=== PATIENT | female | born 1975 | race Hispanic/Latino ===

== ENCOUNTER 2017-03-06 10:21 | Emergency (ER) | payer BC ==
[2017-03-06 10:55] VITALS: BP 109/65
[2017-03-06] MEDS ORDERED: ZOFRAN IM ONE (13:46)
[2017-03-06] MEDS ORDERED: BENADRYL IM ONE (13:46)
[2017-03-06] MEDS ORDERED: MORPHINE IM ONE (13:46)
--- NOTE | 2017-03-06 17:15 | Emergency Department Report ---
Entered by ERNESTO DE LA CRUZ, acting as scribe for KRISTAN RYAN PA. ED Headache HPI - General Chief Complaint: Headache Stated Complaint: SEVERE MIGRAINES Time Seen by Provider: 03/06/17 13:17 Source: patient Exam Limitations: no limitations - History of Present Illness Initial Comments: 41 y/o female with a PMHx of CVA, TIA, renal stones, and migraines presents to the ED c/o of an acute episode of chronic left sided frontal headache that began today. Patient states the pain radiates to the right side of head. Rates pain a 10/10 in severity, which she describes as throbbing in quality. Aggravated with light exposure, odor, noise, and movement, and alleviated with a darkened room and botox shots. Denies vision changes, stiff neck, nausea, vomiting, weakness, confusion, fever, chills, dizziness, chest pain, and SOB. Patient has been seen in this ED multiple time for similar complaints. Friend, who is in the room with patient, states that patient sees a neurologist every 4 week, and she receives botox shots by her neurologist every 12 weeks with relief. Notes she has an appointment with her neurologist on 03/23/2017. 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 Patient states she's had numerous CT scans of head and she denies receiving a CT scan of head today. She reports that this migraine feels similar to her past headaches. Timing/Duration: 4-6 hours Quality: moderate, throbbing Head Injury Location: frontal Recent Head Trauma: no recent headache/trauma, chronic headaches Modifying Factors: improves with: immobilization, other (darkened room). worse with: exposure to light, movement Associated Symptoms: denies symptoms. denies: confusion, fatigue, facial pain, fever/chills, flushing, loss of consciousness, nausea/vomiting, nasal congestion , nasal drainage, numbness in legs/feet, rash, seizures, sinus infection, stiff neck, vision changes, weakness Allergies/Adverse Reactions: Allergies levetiracetam [From Keppra] Allergy (Intermediate, Verified 03/06/17 10:48) Vomiting divalproex sodium [From Depakote] Allergy (Verified 03/06/17 10:48) Unknown metoclopramide HCl [From Reglan] Allergy (Verified 03/06/17 10:48) Unknown Penicillins Allergy (Verified 03/06/17 10:48) Unknown Home Medications: Ambulatory Orders Promethazine [Phenergan] 25 mg PO Q6H PRN #12 tablet 11/03/13 Ondansetron [Zofran Odt] 4 mg PO Q8HR #20 tab.rapdis 04/07/16 Escitalopram [Lexapro] 10 mg PO DAILY 05/06/16 Oxycodone HCl/Acetaminophen [Percocet 10/325 mg] 1 tab PO Q6H PRN 05/06/16 Zolpidem Tartrate [Ambien CR] 12.5 mg PO QHS 05/06/16 lamoTRIgine [LaMICtal] 15 mg PO DAILY 05/06/16 Butalb/Acetaminophen/Caffeine [Fioricet 50-300-40 mg CAP] 1 cap PO Q8HR PRN #30 cap 03/06/17 Prochlorperazine [Compazine] 10 mg PO Q8HR #30 tablet 03/06/17 ED Review of Systems ROS: Stated complaint: SEVERE MIGRAINES Other details as noted in HPI Comment: All other systems reviewed and negative Constitutional: denies: chills, diaphoresis, fever, malaise, weakness Eyes: denies: eye pain, eye discharge, vision change ENT: denies: ear pain, throat pain Respiratory: denies: cough, orthopnea, shortness of breath, SOB with exertion, SOB at rest, stridor, wheezing Cardiovascular: denies: chest pain, palpitations, dyspnea on exertion, orthopnea , edema, syncope, paroxysmal nocturnal dyspnea Endocrine: no symptoms reported Gastrointestinal: denies: abdominal pain, nausea, vomiting, diarrhea Musculoskeletal: denies: back pain, joint swelling, arthralgia Skin: denies: rash, lesions Neurological: headache. denies: weakness, numbness, paresthesias, confusion, abnormal gait, vertigo Psychiatric: denies: anxiety, depression Hematological/Lymphatic: denies: easy bleeding, easy bruising ED Past Medical Hx - Past Medical History Previous Medical History?: Yes Hx CVA: Yes (2014 Slight left sided deficits) Hx Headaches / Migraines: Yes ( migraine headaches) Hx Kidney Stones: Yes Additional medical history: TIA x3 since last february - Surgical History Additional Surgical History: partial removal of cervix, 2 sinus surg - Social History Smoking Status: Never Smoker Substance Use Type: None - Medications Home Medications: Home Medications Medication Instructions Recorded Confirmed Last Taken Type Promethazine [Phenergan] 25 mg PO Q6H PRN #12 tablet 11/03/13 07/11/16 05/29/14 Rx Ondansetron [Zofran Odt] 4 mg PO Q8HR #20 tab.rapdis 04/07/16 07/11/16 Unknown Rx Escitalopram [Lexapro] 10 mg PO DAILY 05/06/16 07/11/16 05/06/16 History Oxycodone HCl/Acetaminophen 1 tab PO Q6H PRN 05/06/16 07/11/16 Unknown History [Percocet 10/325 mg] Zolpidem Tartrate [Ambien CR] 12.5 mg PO QHS 05/06/16 07/11/16 05/05/16 History lamoTRIgine [LaMICtal] 15 mg PO DAILY 05/06/16 07/11/16 05/06/16 History Butalb/Acetaminophen/Caffeine 1 cap PO Q8HR PRN #30 cap 03/06/17 Unknown Rx [Fioricet 50-300-40 mg CAP] Prochlorperazine [Compazine] 10 mg PO Q8HR #30 tablet 03/06/17 Unknown Rx ED Physical Exam - General Limitations: No Limitations General appearance: alert, in no apparent distress - Head Head exam: Present: atraumatic, normocephalic - Eye Eye exam: Present: normal appearance, PERRL, EOMI. Absent: scleral icterus, conjunctival injection, nystagmus, periorbital swelling, periorbital tenderness Pupils: Present: normal accommodation - ENT ENT exam: Present: normal exam, mucous membranes moist, normal external ear exam - Neck Neck exam: Present: normal inspection, full ROM. Absent: tenderness, meningismus, lymphadenopathy, thyromegaly - Respiratory Respiratory exam: Present: normal lung sounds bilaterally. Absent: respiratory distress, wheezes, rales, rhonchi, stridor, chest wall tenderness, accessory muscle use, decreased breath sounds, prolonged expiratory - Cardiovascular Cardiovascular Exam: Present: regular rate, normal rhythm, normal heart sounds. Absent: systolic murmur, diastolic murmur, rubs, gallop - GI/Abdominal GI/Abdominal exam: Present: soft, normal bowel sounds. Absent: distended - Extremities Exam Extremities exam: Present: normal inspection, full ROM, normal capillary refill - Back Exam Back exam: Present: normal inspection, full ROM. Absent: tenderness, vertebral tenderness - Neurological Exam Neurological exam: Present: alert, oriented X3, CN II-XII intact, normal gait, reflexes normal. Absent: motor sensory deficit - Expanded Neurological Exam Expanded Neurological exam: Absent: innattentive, memory loss-remote event, memory loss- recent event, ataxia, receptive aphasia, expressive aphasia, total aphasia, tremor Patient oriented to: Present: person, place, time Speech: Present: fluid speech (normal tone of speech) Cranial nerves: EOM's Intact: Normal, Nystagmus: Normal Sensory exam: Upper Extremity Light Touch: Normal, Upper Extremity Pin Prick: Normal, Upper Extremity Temperature: Normal, UE 2 Point Discrimination: Normal, Lower Extremity Light Touch: Normal, Lower Extremity Pin Prick: Normal, Lower Extremity Temperature: Normal, LE 2 Point Discrimination: Normal Motor strength exam: RUE: 5, LUE: 5, RLE: 5, LLE: 5 DTR: bicep (R): 2+, bicep (L): 2+, tricep (R): 2+, tricep (L): 2+, knee (R): 2+ , knee (L): 2+, ankle (R): 2+, ankle (L): 2+ Best Eye Response ([place]): (4) open spontaneously Best Motor Response (Joanne): (6) obeys commands Best Verbal Response ([place]): (5) oriented [place] Total: 15 - Psychiatric Psychiatric exam: Present: normal affect, normal mood - Skin Skin exam: Present: warm, dry, intact. Absent: rash ED Course Vital Signs 03/06/17 03/06/17 10:48 14:06 Temperature 98.5 F Pulse Rate 86 Respiratory 17 18 Rate Blood Pressure 109/65 O2 Sat by Pulse 99 Oximetry ED Medical Decision Making - Medical Decision Making 41 [id number] presents with headache ED course: Patient received Benadryl, Zofran, Solu-Medrol, and Morphine IM Vital signs stable patient is in no acute or respiratory distress. Discussed findings with patient about diagnoses. Discussed treatment in ED with patient Discussed with patient the prescribed Fioricet and Compazine Discussed with patient to follow up with PCP and neurologist as referred, and to return to the ED if symptoms return or worsen. Patient states understanding and will follow instructions. Pt verbally states understanding and will comply to follow up. Critical care attestation.: If time is entered above; I have spent that time in minutes in the direct care of this critically ill patient, excluding procedure time. ED Disposition Clinical Impression: Migraine headache without aura Disposition: - TO HOME OR SELFCARE Is pt being admited?: No Does the pt Need Aspirin: No Condition: Stable Instructions: Migraine Headache (ED), Acute Headache (ED) Additional Instructions: Follow-up with your neurologist as well as primary care physician. Prescriptions: Butalb/Acetaminophen/Caffeine [Fioricet 50-300-40 mg CAP] 1 cap PO Q8HR PRN #30 cap PRN Reason: Pain Prochlorperazine [Compazine] 10 mg PO Q8HR #30 tablet Referrals: PRIMARY CARE, [Primary Care Provider] - 3-5 Days Forms: Accompanied Note, Work/School Release Form(ED) Time of Disposition: 14:09 This documentation as recorded by the DOROTHY cherry JASMINE,accurately reflects the service I personally performed and the decisions made by ,KRISTAN RYAN PA.
== END 2017-03-06 15:06 | disposition home or self-care (01) ==
LOC: ED 10:21
DX: G43.909 Migraine, unspecified, not intractable, without status migrainosus (principal); Z86.73 Personal history of transient ischemic attack (TIA), and cerebral infarction without residual deficits; Z88.0 Allergy status to penicillin; Z88.8 Allergy status to other drugs, medicaments and biological substances
CPT/HCPCS: 96372; 99282; J1200; J2270; J2405; J2930

== ENCOUNTER 2017-04-04 14:23 | Emergency (ER) | payer BC ==
[2017-04-05] MEDS ORDERED: ZOFRAN IV ONE (00:37)
[2017-04-05] MEDS ORDERED: TORADOL IV ONE (00:37)
[2017-04-05] MEDS ORDERED: MORPHINE IV ONE ×2 (00:37→02:26)
[2017-04-05] MEDS ORDERED: BENADRYL IV ONE (00:37)
[2017-04-05] MEDS ORDERED: DECADRON IV ONE (00:38)
--- NOTE | 2017-04-05 00:43 | Emergency Department Report ---
ED Headache HPI - General Chief Complaint: Headache Stated Complaint: MIGRAINE PAIN Time Seen by Provider: 04/05/17 00:28 Source: patient, family - History of Present Illness Initial Comments: 41 years old female history of headache migraine came today with an episode of headache migraine it has been going on for 12 days, she just came from her neurologist 3 days ago, she received Botox treatment but is not helping .according to the patient she does have a certain pain medications combination that her neurologist and had to get that help her headache which include Dilaudid, Benadryl, Zofran, Toradol and Decadron. I reviewed the patient's records from previous visits and it did confirm what the patient's had said. Quality: moderate Recent Head Trauma: no recent headache/trauma Associated Symptoms: denies symptoms Allergies/Adverse Reactions: Allergies levetiracetam [From Keppra] Allergy (Intermediate, Verified 03/06/17 10:48) Vomiting divalproex sodium [From Depakote] Allergy (Verified 03/06/17 10:48) Unknown metoclopramide HCl [From Reglan] Allergy (Verified 03/06/17 10:48) Unknown Penicillins Allergy (Verified 03/06/17 10:48) Unknown Home Medications: Ambulatory Orders Promethazine [Phenergan] 25 mg PO Q6H PRN #12 tablet 11/03/13 Ondansetron [Zofran Odt] 4 mg PO Q8HR #20 tab.rapdis 04/07/16 Escitalopram [Lexapro] 10 mg PO DAILY 05/06/16 Oxycodone HCl/Acetaminophen [Percocet 10/325 mg] 1 tab PO Q6H PRN 05/06/16 Zolpidem Tartrate [Ambien CR] 12.5 mg PO QHS 05/06/16 lamoTRIgine [LaMICtal] 15 mg PO DAILY 05/06/16 Butalb/Acetaminophen/Caffeine [Fioricet 50-300-40 mg CAP] 1 cap PO Q8HR PRN #30 cap 03/06/17 Prochlorperazine [Compazine] 10 mg PO Q8HR #30 tablet 03/06/17 ED Review of Systems ROS: Stated complaint: MIGRAINE PAIN Other details as noted in HPI Comment: All other systems reviewed and negative Constitutional: denies: chills, fever Respiratory: denies: cough, orthopnea, shortness of breath, SOB with exertion Cardiovascular: denies: chest pain, palpitations, dyspnea on exertion Gastrointestinal: denies: abdominal pain, nausea, vomiting, diarrhea Neurological: headache. denies: weakness, numbness ED Past Medical Hx - Past Medical History Previous Medical History?: Yes Hx CVA: Yes (2014 Slight left sided deficits) Hx Headaches / Migraines: Yes ( migraine headaches) Hx Kidney Stones: Yes Additional medical history: TIA x3 since last february. 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/A and debility - Surgical History Past Surgical History?: Yes Additional Surgical History: partial removal of cervix, 2 sinus surg - Social History Smoking Status: Never Smoker Substance Use Type: None - Medications Home Medications: Home Medications Medication Instructions Recorded Confirmed Last Taken Type Promethazine [Phenergan] 25 mg PO Q6H PRN #12 tablet 11/03/13 07/11/16 05/29/14 Rx Ondansetron [Zofran Odt] 4 mg PO Q8HR #20 tab.rapdis 04/07/16 07/11/16 Unknown Rx Escitalopram [Lexapro] 10 mg PO DAILY 05/06/16 07/11/16 05/06/16 History Oxycodone HCl/Acetaminophen 1 tab PO Q6H PRN 05/06/16 07/11/16 Unknown History [Percocet 10/325 mg] Zolpidem Tartrate [Ambien CR] 12.5 mg PO QHS 05/06/16 07/11/16 05/05/16 History lamoTRIgine [LaMICtal] 15 mg PO DAILY 05/06/16 07/11/16 05/06/16 History Butalb/Acetaminophen/Caffeine 1 cap PO Q8HR PRN #30 cap 03/06/17 Unknown Rx [Fioricet 50-300-40 mg CAP] Prochlorperazine [Compazine] 10 mg PO Q8HR #30 tablet 03/06/17 Unknown Rx ED Physical Exam - General Limitations: No Limitations General appearance: alert - Head Head exam: Present: atraumatic, normocephalic - Eye Eye exam: Present: normal appearance - ENT ENT exam: Present: normal exam - Neck Neck exam: Present: normal inspection - Respiratory Respiratory exam: Present: normal lung sounds bilaterally. Absent: respiratory distress, wheezes, rales, rhonchi - Cardiovascular Cardiovascular Exam: Present: regular rate, normal rhythm, normal heart sounds - GI/Abdominal GI/Abdominal exam: Present: soft. Absent: tenderness, guarding, rebound, rigid , normal bowel sounds - Back Exam Back exam: Present: normal inspection. Absent: CVA tenderness (R), CVA tenderness (L) - Neurological Exam Neurological exam: Present: alert, oriented X3, CN II-XII intact - Skin Skin exam: Present: warm, intact, normal color ED Course Vital Signs 04/04/17 16:34 Temperature 99 F Pulse Rate 72 Respiratory 18 Rate Blood Pressure 100/47 O2 Sat by Pulse 99 Oximetry - Reevaluation(s) Reevaluation #1: 04/05/17 02:27 Patient is sleeping when I walked into the room and as soon as she heard my voice, she wake-up and asked for more pain medicine. After reviewing the patient's records, I do believe this patient most likely had a narcotic rebound headache,I feel there is a pain medicine seeking behavior also. I talked to the patient and to her that she will need to follow-up with pain medicine clinic and get treated, patient rejected the idea immediately but her is understanding that something needed to be done about this. Critical care attestation.: If time is entered above; I have spent that time in minutes in the direct care of this critically ill patient, excluding procedure time. ED Disposition Clinical Impression: Migraine, Narcotic dependence Disposition: DC-01 TO HOME OR SELFCARE Is pt being admited?: No Does the pt Need Aspirin: No Condition: Stable Instructions: Migraine Headache (ED), Narcotic Abuse (ED) Referrals: PRIMARY CARE, [Primary Care Provider] - 3-5 Days
[2017-04-05 02:52] VITALS: BP 99/71
== END 2017-04-05 02:53 | disposition home or self-care (01) ==
LOC: ED 14:23
DX: G43.909 Migraine, unspecified, not intractable, without status migrainosus (principal); F11.20 Opioid dependence, uncomplicated; Z88.0 Allergy status to penicillin; Z88.8 Allergy status to other drugs, medicaments and biological substances; Z86.73 Personal history of transient ischemic attack (TIA), and cerebral infarction without residual deficits; Z87.442 Personal history of urinary calculi
CPT/HCPCS: 96374; 96375; 96376; 99283; J1100; J1200; J1885; J2270; J2405

== ENCOUNTER 2018-08-13 11:50 | Emergency (ER) | payer BC, MEDICARE ==
[2018-08-13 12:10] VITALS: BP 123/75
[2018-08-13] MEDS ORDERED: MORPHINE IV ONE ×4 (12:15→13:37)
[2018-08-13] MEDS ORDERED: ZOFRAN IV ONE (12:15)
[2018-08-13] MEDS ORDERED: DECADRON IV ONE (12:15)
[2018-08-13] MEDS ORDERED: BENADRYL IV ONE (12:16)
--- NOTE | 2018-08-13 12:20 | Emergency Department Report ---
ED Headache HPI - General Chief Complaint: Headache Stated Complaint: SEVERE HEADACHE Time Seen by Provider: 08/13/18 12:11 - History of Present Illness Initial Comments: Mrs. Mejia is a 43-year-old female with history of hemiplegic migraine and CVA presents with typical migraine. She has left-sided throbbing 10/10 headache with photophobia and phonophobia with nausea. Persistent headache for patient. Recently she was admitted one month ago for severe pain since related to migraine. She is followed by Dr. Fuller neurologist in [place]. Her typical headache cocktail includes Demerol, Benadryl and antinausea medicine. She is unable to tolerate Imitrex due to history of CVA. Home medications include Percocet, CBD oil, Requip and Lipitor Timing/Duration: other (3 days) Quality: severe Head Injury Location: temporal Recent Head Trauma: frequent headaches, chronic headaches Modifying Factors: improves with: exposure to light Associated Symptoms: nausea/vomiting Allergies/Adverse Reactions: Allergies levetiracetam [From Keppra] Allergy (Intermediate, Verified 08/13/18 12:08) Vomiting divalproex sodium [From Depakote] Allergy (Verified 08/13/18 12:08) Unknown metoclopramide HCl [From Reglan] Allergy (Verified 08/13/18 12:08) Unknown Penicillins Allergy (Verified 08/13/18 12:08) Unknown Home Medications: Ambulatory Orders Zolpidem Tartrate [Ambien CR] 12.5 mg PO QHS 05/06/16 Aspirin [Aspirin TAB] 325 mg PO QDAY #30 tablet 06/30/18 AtorvaSTATin [Lipitor] 40 mg PO QHS #30 tablet 06/30/18 Diazepam [Valium] 1 tab PO BID PRN 07/02/18 SUMAtriptan succinate [Imitrex] 0.5 ml SUB-Q BID PRN 07/02/18 Butalb/Acetamin/Caff 50-325-40 [Fioricet] 1 tab PO Q6H PRN #20 tablet 07/06/18 Ondansetron [Zofran ODT TAB] 4 mg PO Q8HR #20 tab.rapdis 07/06/18 ED Review of Systems ROS: Stated complaint: SEVERE HEADACHE Other details as noted in HPI Comment: All other systems reviewed and negative Constitutional: denies: fever, malaise Respiratory: denies: cough Cardiovascular: denies: chest pain Gastrointestinal: nausea. denies: abdominal pain, vomiting ED Past Medical Hx - Past Medical History Hx CVA: Yes (2013 Slight left sided deficits. TPA 2 weeks ago.) Hx Heart Attack/AMI: No Hx Congestive Heart Failure: No Hx Diabetes: No Hx Headaches / Migraines: Yes ( migraine headaches) Hx Kidney Stones: Yes Hx Asthma: No Hx COPD: No Additional medical history: TIA x3 since last february. 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 tonsils - Social History Smoking Status: Never Smoker Substance Use Type: None - Medications Home Medications: Home Medications Medication Instructions Recorded Confirmed Last Taken Type Zolpidem Tartrate [Ambien CR] 12.5 mg PO QHS 05/06/16 07/15/18 07/13/18 22:00 History Aspirin [Aspirin TAB] 325 mg PO QDAY #30 tablet 06/30/18 07/15/18 07/02/18 Rx AtorvaSTATin [Lipitor] 40 mg PO QHS #30 tablet 06/30/18 07/15/18 07/13/18 22:00 Rx Diazepam [Valium] 1 tab PO BID PRN 07/02/18 07/15/18 07/02/18 History SUMAtriptan succinate [Imitrex] 0.5 ml SUB-Q BID PRN 07/02/18 07/15/18 07/02/18 History Butalb/Acetamin/Caff 50-325-40 1 tab PO Q6H PRN #20 tablet 07/06/18 07/15/18 07/14/18 16:00 Rx [Fioricet] Ondansetron [Zofran ODT TAB] 4 mg PO Q8HR #20 tab.rapdis 07/06/18 07/15/18 Unknown Rx ED Physical Exam - General Limitations: No Limitations General appearance: alert, in no apparent distress - Head Head exam: Present: atraumatic, normocephalic - Eye Eye exam: Present: normal appearance - ENT ENT exam: Present: mucous membranes moist - Neck Neck exam: Present: normal inspection - Respiratory Respiratory exam: Present: normal lung sounds bilaterally. Absent: respiratory distress, wheezes, rales, rhonchi - Cardiovascular Cardiovascular Exam: Present: regular rate, normal rhythm, normal heart sounds. Absent: systolic murmur, diastolic murmur, rubs, gallop - GI/Abdominal GI/Abdominal exam: Present: soft, normal bowel sounds. Absent: distended, tenderness, guarding, rebound - Extremities Exam Extremities exam: Present: normal inspection - Back Exam Back exam: Present: normal inspection - Neurological Exam Neurological exam: Present: alert, oriented X3, normal gait - Psychiatric Psychiatric exam: Present: normal affect, normal mood - Skin Skin exam: Present: warm, dry, intact, normal color. Absent: rash ED Course Vital Signs 08/13/18 08/13/18 08/13/18 12:08 12:30 12:36 Temperature 98.5 F Pulse Rate 103 H Respiratory 18 15 15 Rate Blood Pressure 123/75 O2 Sat by Pulse 98 Oximetry ED Medical Decision Making - Medical Decision Making Mrs. Mejia has history of complex hemiplegic migraine and CVA. I reviewed previous medical record. I reviewed extensive discharge summary. She's had multiple hospital admissions at outside hospitals including [facility]. Recent CVA workup was negative although she did receive TPA on her last presentation to this hospital in June. She does not have any new neurological deficits. She received morphine, Toradol, dexamethasone, Zofran and Benadryl in the ED. Critical care attestation.: If time is entered above; I have spent that time in minutes in the direct care of this critically ill patient, excluding procedure time. ED Disposition Clinical Impression: Migraine Disposition: DC-01 TO HOME OR SELFCARE Is pt being admited?: No Does the pt Need Aspirin: No Condition: Stable Instructions: Migraine Headache (ED) Referrals: PRIMARY CARE, [Primary Care Provider] - 3-5 Days
== END 2018-08-13 13:49 | disposition home or self-care (01) ==
LOC: ED 11:50
DX: G43.909 Migraine, unspecified, not intractable, without status migrainosus (principal); G89.29 Other chronic pain; Z86.73 Personal history of transient ischemic attack (TIA), and cerebral infarction without residual deficits; Z90.710 Acquired absence of both cervix and uterus; Z90.49 Acquired absence of other specified parts of digestive tract; Z90.79 Acquired absence of other genital organ(s); Z79.899 Other long term (current) drug therapy; Z88.6 Allergy status to analgesic agent; Z88.0 Allergy status to penicillin; Z88.1 Allergy status to other antibiotic agents
CPT/HCPCS: 96374; 96375; 96376; 99282; J1100; J1200; J2270; J2405

== ENCOUNTER 2018-08-25 15:56 | Emergency (ER) | payer BC, MEDICARE ==
[2018-08-25 16:04] VITALS: BP 130/80
[2018-08-25] MEDS ORDERED: NACL 0.9% 1000 ML 1,000 ML IV ONE (16:38)
[2018-08-25] MEDS ORDERED: ZOFRAN IV ONE (16:38)
[2018-08-25] MEDS ORDERED: TORADOL IV ONE (16:38)
[2018-08-25] MEDS ORDERED: BENADRYL IV ONE (16:38)
[2018-08-25] MEDS ORDERED: MORPHINE IV ONE ×4 (16:59→18:14)
--- NOTE | 2018-08-25 18:13 | Emergency Department Report ---
ED Headache HPI - General Chief Complaint: Headache Stated Complaint: HEADACHE Time Seen by Provider: 08/25/18 16:32 - History of Present Illness Initial Comments: This is a 43-year-old female nontoxic, well nourished in appearance, no acute signs of distress presents to the ED with c/o of acute on chronic headache. Patient describes headache as diffuse with level of 8 out of 10. Patient denies thunderclap headache. Patient denies any radiation of pain. Patient denies any head trauma. Patient denies any visual changes. Patient denies worse headache. Patient stated she does follow a neruologist and last week had an EEG. Patient stated had also CT scans as well within normal findings. Patient stated that darkness makes headache better and bright lights make the headache worse. Patient denies any numbness, tingling, fever, chills, nausea, vomiting, chest pain, shortness of breath, stiff neck. Patient denies any radiation of pain. Past medical history includes headaches. Timing/Duration: episodic Quality: achy Head Injury Location: other (diffuse) Recent Head Trauma: frequent headaches, chronic headaches Associated Symptoms: denies symptoms. denies: confusion, fatigue, facial pain, fever/chills, flushing, loss of consciousness, nausea/vomiting, nasal congestion, nasal drainage, numbness in legs/feet, rash, seizures, sinus infection, stiff neck, vision changes, weakness Allergies/Adverse Reactions: Allergies levetiracetam [From Keppra] Allergy (Intermediate, Verified 08/13/18 12:08) Vomiting divalproex sodium [From Depakote] Allergy (Verified 08/13/18 12:08) Unknown metoclopramide HCl [From Reglan] Allergy (Verified 08/13/18 12:08) Unknown Penicillins Allergy (Verified 08/13/18 12:08) Unknown Home Medications: Ambulatory Orders Zolpidem Tartrate [Ambien CR] 12.5 mg PO QHS 05/06/16 Aspirin [Aspirin TAB] 325 mg PO QDAY #30 tablet 06/30/18 AtorvaSTATin [Lipitor] 40 mg PO QHS #30 tablet 06/30/18 Diazepam [Valium] 1 tab PO BID PRN 07/02/18 SUMAtriptan succinate [Imitrex] 0.5 ml SUB-Q BID PRN 07/02/18 Butalb/Acetamin/Caff 50-325-40 [Fioricet] 1 tab PO Q6H PRN #20 tablet 07/06/18 Ondansetron [Zofran ODT TAB] 4 mg PO Q8HR #20 tab.rapdis 07/06/18 Butalb/Acetamin/Caff 50-325-40 [Fioricet] 1 tab PO Q6HR PRN #12 tab 08/25/18 ED Review of Systems ROS: Stated complaint: HEADACHE Other details as noted in HPI Constitutional: denies: chills, fever Eyes: denies: eye pain, eye discharge, vision change ENT: denies: ear pain, throat pain Respiratory: denies: cough, shortness of breath, wheezing Cardiovascular: denies: chest pain, palpitations Endocrine: no symptoms reported Gastrointestinal: denies: abdominal pain, nausea, diarrhea Genitourinary: denies: urgency, dysuria, discharge Musculoskeletal: denies: back pain, joint swelling, arthralgia Skin: denies: rash, lesions Neurological: headache. 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 TPA 2 weeks ago.) Hx Heart Attack/AMI: No Hx Congestive Heart Failure: No Hx Diabetes: No Hx Headaches / Migraines: Yes ( migraine headaches) Hx Kidney Stones: Yes Hx Asthma: No Hx COPD: No Additional medical history: TIA x3 since last february. 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 tonsils - Social History Smoking Status: Never Smoker Substance Use Type: None - Medications Home Medications: Home Medications Medication Instructions Recorded Confirmed Last Taken Type Zolpidem Tartrate [Ambien CR] 12.5 mg PO QHS 05/06/16 07/15/18 07/13/18 22:00 History Aspirin [Aspirin TAB] 325 mg PO QDAY #30 tablet 06/30/18 07/15/18 07/02/18 Rx AtorvaSTATin [Lipitor] 40 mg PO QHS #30 tablet 06/30/18 07/15/18 07/13/18 22:00 Rx Diazepam [Valium] 1 tab PO BID PRN 07/02/18 07/15/18 07/02/18 History SUMAtriptan succinate [Imitrex] 0.5 ml SUB-Q BID PRN 07/02/18 07/15/18 07/02/18 History Butalb/Acetamin/Caff 50-325-40 1 tab PO Q6H PRN #20 tablet 07/06/18 07/15/18 07/14/18 16:00 Rx [Fioricet] Ondansetron [Zofran ODT TAB] 4 mg PO Q8HR #20 tab.rapdis 07/06/18 07/15/18 Unknown Rx Butalb/Acetamin/Caff 50-325-40 1 tab PO Q6HR PRN #12 tab 08/25/18 Unknown Rx [Fioricet] ED Physical Exam - General Limitations: No Limitations General appearance: alert, in no apparent distress - Head Head exam: Present: atraumatic, normocephalic - Eye Eye exam: Present: normal appearance, PERRL, EOMI - Neck Neck exam: Present: normal inspection, full ROM - Extremities Exam Extremities exam: Present: normal inspection, full ROM, normal capillary refill - Back Exam Back exam: Present: normal inspection, full ROM - Neurological Exam Neurological exam: Present: alert, oriented X3, normal gait - Expanded Neurological Exam Expanded Patient oriented to: Present: person, place, time Cranial nerves: Facial Sensation: Normal Sensory exam: Upper Extremity Light Touch: Normal, Upper Extremity Pin Prick: Normal, Upper Extremity Temperature: Normal, Lower Extremity Light Touch: Normal, Lower Extremity Pin Prick: Normal, Lower Extremity Temperature: Normal Motor strength exam: RUE: 5, LUE: 5, RLE: 5, LLE: 5 Best Eye Response ([place]): (4) open spontaneously Best Motor Response ([place]): (6) obeys commands Best Verbal Response ([place]): (5) oriented [place] Total: 15 - Psychiatric Psychiatric exam: Present: normal affect, normal mood - Skin Skin exam: Present: warm, dry, intact, normal color. Absent: rash ED Course Vital Signs 08/25/18 08/25/18 08/25/18 16:00 17:01 17:11 Temperature 98.7 F Pulse Rate 127 H Respiratory 16 15 17 Rate Blood Pressure 130/80 O2 Sat by Pulse 96 Oximetry - Reevaluation(s) Reevaluation #1: 08/25/18 18:26 Patient is speaking in full sentences with no signs of distress noted. ED Medical Decision Making - Medical Decision Making This is a 43-year-old female that presents with chronic headache. Patient is stable and was examined by me. Patient is neurologically stable. There is no stiff neck or neck pain. Vital signs are stable. Patient is afebrile. Patient received Benadryl, Reglan, Toradol, decadron, Morphine and 1 L of normal saline which the patient stated that headache has subsided and resolved. Patient was instructed not to operate any machinery after discharged due to drowsiness of medications. Patient stated that a family member () will drive patient home. Patient was referred to Follow-up with a primary care/neurologist doctor in 3-5 days or if symptoms worsen and continue return to emergency room as soon as possible. At time of discharge, the patient does not seem toxic or ill in appearance. No acute signs of distress noted. Patient agrees to discharge treatment plan of care. No further questions noted by the patient. Critical care attestation.: If time is entered above; I have spent that time in minutes in the direct care of this critically ill patient, excluding procedure time. ED Disposition Clinical Impression: Chronic headache Qualifiers: Headache type: unspecified Intractability: not intractable Qualified Code(s): R51 - Headache Disposition: DC-01 TO HOME OR SELFCARE Is pt being admited?: No Does the pt Need Aspirin: No Condition: Stable Instructions: Acute Headache (ED), Butalbital/Aspirin/Caffeine (By mouth) Additional Instructions: Follow-up with a primary care/ neurologist doctor in 3-5 days or if symptoms worsen and continue return to emergency room as soon as possible. Prescriptions: Butalb/Acetamin/Caff 50-325-40 [Fioricet] 1 tab PO Q6HR PRN #12 tab PRN Reason: Headache Referrals: PRIMARY CARE, [Primary Care Provider] - 3-5 Days SANFORD ZIMMER MD [Staff Physician] - 3-5 Days [facility] [Outside] - 3-5 Days [facility] [Outside] - 3-5 Days Forms: Work/School Release Form(ED)
[2018-08-25] MEDS ORDERED: DECADRON IV ONE (18:14)
== END 2018-08-25 19:38 | disposition home or self-care (01) ==
LOC: ED 15:56
DX: R51 Headache (principal); G89.29 Other chronic pain; G43.909 Migraine, unspecified, not intractable, without status migrainosus; Z86.73 Personal history of transient ischemic attack (TIA), and cerebral infarction without residual deficits; Z90.710 Acquired absence of both cervix and uterus; Z90.89 Acquired absence of other organs; Z79.899 Other long term (current) drug therapy; Z88.0 Allergy status to penicillin; Z88.1 Allergy status to other antibiotic agents; Z88.8 Allergy status to other drugs, medicaments and biological substances
CPT/HCPCS: 96374; 96375; 96376; 99282; J1100; J1200; J1885; J2270; J2405; J7030

== ENCOUNTER 2018-08-31 21:22 | Emergency (ER) | payer BC, MEDICARE ==
[2018-08-31] MEDS ORDERED: SOLU-Medrol IV ONE (22:10)
[2018-08-31] MEDS ORDERED: BENADRYL IV ONE (22:10)
[2018-08-31] MEDS ORDERED: DILAUDID IV ONE ×2 (22:10→23:28)
[2018-08-31] MEDS ORDERED: ZOFRAN IV ONE (22:10)
--- NOTE | 2018-08-31 22:11 | Emergency Department Report ---
ED Headache HPI - General Chief Complaint: Headache Stated Complaint: HEADACHE Time Seen by Provider: 08/31/18 22:01 Source: patient, family Exam Limitations: no limitations - History of Present Illness Initial Comments: Patient is a 43-year-old female presents to emergency room with worsening migraine headache. Patient states the pain isn't sudden onset. Patient states it's a generalized headache. Patient states that the pain is worsening and is nonradiating. Patient states the pain is better with rest and light and sound avoidance and worse with movement and exertion. Patient denies chest pain shortness of breath. Patient denies fever or chills. Patient states she has a long history of migraines and has a daily headache and is already seeing a neurologist for this. Patient states that normally she can manage the indication with oral medications but at times needs to be seen in the ER for IV medications. Patient states she has a seizure history. Patient states she had 2 seizures in the last 24 hours due to the stress reaction of the migraines. He denies neck pain. Patient denies neck stiffness.. Timing/Duration: 24 hours Quality: severe Head Injury Location: global Recent Head Trauma: no recent headache/trauma, frequent headaches, chronic headaches Modifying Factors: improves with: cold therapy, exposure to light, medication, movement, rest Associated Symptoms: seizures. denies: confusion, fatigue, facial pain, fever/chills, flushing, loss of consciousness, nausea/vomiting, nasal congestion, nasal drainage, numbness in legs/feet, rash, sinus infection, stiff neck, vision changes, weakness Allergies/Adverse Reactions: Allergies levetiracetam [From Keppra] Allergy (Intermediate, Verified 08/13/18 12:08) Vomiting divalproex sodium [From Depakote] Allergy (Verified 08/13/18 12:08) Unknown metoclopramide HCl [From Reglan] Allergy (Verified 08/13/18 12:08) Unknown Penicillins Allergy (Verified 08/13/18 12:08) Unknown Home Medications: Ambulatory Orders Zolpidem Tartrate [Ambien CR] 12.5 mg PO QHS 05/06/16 Aspirin [Aspirin TAB] 325 mg PO QDAY #30 tablet 06/30/18 AtorvaSTATin [Lipitor] 40 mg PO QHS #30 tablet 06/30/18 SUMAtriptan succinate [Imitrex] 0.5 ml SUB-Q BID PRN 07/02/18 Butalb/Acetamin/Caff 50-325-40 [Fioricet] 1 tab PO Q6H PRN #20 tablet 07/06/18 Butalb/Acetamin/Caff 50-325-40 [Fioricet] 1 tab PO Q6HR PRN #12 tab 08/25/18 Diazepam [Valium] 1 tab PO BID PRN #6 tablet 09/01/18 Ondansetron [Zofran ODT TAB] 4 mg PO Q8HR PRN #20 tab.rapdis 09/01/18 methylPREDNISolone [Medrol] 4 mg PO DAILY 6 Days #1 tab.ds.pk 09/01/18 ED Review of Systems ROS: Stated complaint: HEADACHE Other details as noted in HPI Constitutional: denies: chills, fever Eyes: denies: eye pain, eye discharge, vision change ENT: denies: ear pain, throat pain Respiratory: denies: cough, shortness of breath, wheezing Cardiovascular: denies: chest pain, palpitations Endocrine: no symptoms reported Gastrointestinal: denies: abdominal pain, nausea, diarrhea Genitourinary: denies: urgency, dysuria, discharge Musculoskeletal: denies: back pain, joint swelling, arthralgia Skin: denies: rash, lesions Neurological: headache. denies: weakness, numbness, paresthesias, confusion, abnormal gait, vertigo Psychiatric: denies: anxiety, depression Hematological/Lymphatic: denies: easy bleeding, easy bruising ED Past Medical Hx - Past Medical History Previous Medical History?: Yes Hx CVA: Yes (2014 Slight left sided deficits.) Hx Heart Attack/AMI: No Hx Congestive Heart Failure: No Hx Diabetes: No Hx Headaches / Migraines: Yes ( migraine headaches) Hx Kidney Stones: Yes Hx Asthma: No Hx COPD: No Additional medical history: TIA x3 since last february. 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 tonsils - Family History Family history: no significant - Social History Smoking Status: Never Smoker Substance Use Type: None - Medications Home Medications: Home Medications Medication Instructions Recorded Confirmed Last Taken Type Zolpidem Tartrate [Ambien CR] 12.5 mg PO QHS 05/06/16 07/15/18 07/13/18 22:00 History Aspirin [Aspirin TAB] 325 mg PO QDAY #30 tablet 06/30/18 07/15/18 07/02/18 Rx AtorvaSTATin [Lipitor] 40 mg PO QHS #30 tablet 06/30/18 07/15/18 07/13/18 22:00 Rx SUMAtriptan succinate [Imitrex] 0.5 ml SUB-Q BID PRN 07/02/18 07/15/18 07/02/18 History Butalb/Acetamin/Caff 50-325-40 1 tab PO Q6H PRN #20 tablet 07/06/18 07/15/18 07/14/18 16:00 Rx [Fioricet] Butalb/Acetamin/Caff 50-325-40 1 tab PO Q6HR PRN #12 tab 08/25/18 Unknown Rx [Fioricet] Diazepam [Valium] 1 tab PO BID PRN #6 tablet 09/01/18 Unknown Rx Ondansetron [Zofran ODT TAB] 4 mg PO Q8HR PRN #20 tab.rapdis 09/01/18 Unknown Rx methylPREDNISolone [Medrol] 4 mg PO DAILY 6 Days #1 tab.ds.pk 09/01/18 Unknown Rx ED Physical Exam - General Limitations: No Limitations General appearance: alert, in no apparent distress - Head Head exam: Present: atraumatic, normocephalic - Eye Eye exam: Present: normal appearance, PERRL, EOMI Pupils: Present: normal accommodation - ENT ENT exam: Present: mucous membranes moist - Neck Neck exam: Present: normal inspection - Respiratory Respiratory exam: Present: normal lung sounds bilaterally. Absent: respiratory distress - Cardiovascular Cardiovascular Exam: Present: regular rate, normal rhythm. Absent: systolic murmur, diastolic murmur, rubs, gallop - GI/Abdominal GI/Abdominal exam: Present: soft, normal bowel sounds - Extremities Exam Extremities exam: Present: normal inspection - Back Exam Back exam: Present: normal inspection - Neurological Exam Neurological exam: Present: alert, oriented X3 - Expanded Neurological Exam Expanded Patient oriented to: Present: person, place, time Speech: Present: fluid speech Cranial nerves: EOM's Intact: Normal Cerebellar function: Finger to Nose: Normal, Heel to [place]: Normal, [place]: Normal Upper motor neuron: Jhoan Neglect: Normal, Pronator Drift: Normal, Babinski Sign: Normal, Sensory Extinction: Normal Motor strength exam: RUE: 5, LUE: 5, RLE: 5, LLE: 5 Best Eye Response ([place]): (4) open spontaneously Best Motor Response ([place]): (6) obeys commands Best Verbal Response ([place]): (5) oriented [place] Total: 15 - Psychiatric Psychiatric exam: Present: normal affect, normal mood - Skin Skin exam: Present: warm, dry, intact, normal color. Absent: rash ED Course Vital Signs 08/31/18 08/31/18 08/31/18 21:26 21:27 22:10 Temperature 121.0 F H 98.6 F Pulse Rate 122 H 121 H Respiratory 18 18 18 Rate Blood Pressure 120/76 120/76 O2 Sat by Pulse 98 98 99 Oximetry 08/31/18 08/31/18 08/31/18 22:16 22:31 22:45 Temperature Pulse Rate Respiratory Rate Blood Pressure 122/70 O2 Sat by Pulse 98 98 97 Oximetry 08/31/18 08/31/18 08/31/18 22:52 23:00 23:15 Temperature Pulse Rate 96 H Respiratory Rate Blood Pressure 128/77 124/81 O2 Sat by Pulse 98 Oximetry 08/31/18 23:20 Temperature Pulse Rate 97 H Respiratory 18 Rate Blood Pressure O2 Sat by Pulse 99 Oximetry - Reevaluation(s) Reevaluation #1: Initial evaluation done. Patient has a long history of migraines and typically when she comes to the ER requires a migraine cocktail. 08/31/18 22:09 Patient is still complaining of pain. Patient states that time. Patient was given another Dilaudid and Toradol 08/31/18 23:27 Patient states her pain is now at a 7 out of 10. Patient states it is improving but still pounding. Patient will be given another 1 of Dilaudid and prepared for discharge. 09/01/18 00:10 Patient states the pain is a 3 out of 10. Patient states she normally sits about a 5 out of 10 daily. Patient is answering all questions appropriately. Patient is A&O 4. She states she doesn't need the fluids and refused to have saline bolus. Discussed all results with patient and . Patient to be discharged home. Patient stable for discharge. Patient given discharge instructions. Patient and voice understanding of discharge instructions. 09/01/18 00:51 ED Medical Decision Making - Medical Decision Making Patient is a 43-year-old female with a long history of migraines that presents to emergency room with worsening migraine headache. Patient given multiple medications and pain improved. Patient discharged home with Zofran, Medrol Dosepak and a refill of her diazepam. Patient was given diazepam for her seizure history. Patient instructed to follow up with her neurologist. Patient also follow up with her primary care. Patient given discharge instructions. Patient and voice understanding of all instructions. Patient's initial temperature is an error. Patient afebrile. - Differential Diagnosis headache. Chronic migraines. Migraine headache. Anxiety. Seizure Critical care attestation.: If time is entered above; I have spent that time in minutes in the direct care of this critically ill patient, excluding procedure time. ED Disposition Clinical Impression: Seizure Chronic headache Qualifiers: Headache type: unspecified Intractability: not intractable Qualified Code(s): R51 - Headache Migraine Qualifiers: Migraine type: with aura Status migrainosus presence: with status migrainosus Intractability: not intractable Qualified Code(s): G43.101 - Migraine with aura, not intractable, with status migrainosus Disposition: DC- TO HOME OR SELFCARE Is pt being admited?: No Does the pt Need Aspirin: No Condition: Stable Instructions: Migraine Headache (ED), Acute Headache (ED) Additional Instructions: Patient to follow up with neurologist in 2-3 days. Patient to return to ER if condition worsens. Patient to follow up with primary care in 2-3 days. Patient to take meds as directed. Patient to continue all meds. Patient to increase water. Patient to rest. Patient states Tylenol or ibuprofen when necessary for pain. Patient to avoid driving. Patient to take seizure precaution and migraine precautions. Prescriptions: Diazepam [Valium] 1 tab PO BID PRN #6 tablet PRN Reason: TWITCHING methylPREDNISolone [Medrol] 4 mg PO DAILY 6 Days #1 tab.ds.pk Ondansetron [Zofran ODT TAB] 4 mg PO Q8HR PRN #20 tab.rapdis PRN Reason: Nausea And Vomiting Referrals: EMILE STEVENS [Other] - 2-3 Days Time of Disposition: 00:49 - Assessment Assessment Interval: Baseline - Level of Consciousness 1a. Level of Consciousness: alert/keenly responsive - LOC Questions 1b. LOC Questions: answers both correctly - LOC Command 1c. LOC Commands: performs tasks correctly - Best Gaze 2. Best Gaze: normal - Visual 3. Visual: no visual loss - Facial Palsy 4. Facial Palsy: normal symmetrical movement - Motor Arm 5b. Motor Arm Right: no drift 5a. Motor Arm Left: no drift - Motor Leg 6b. Motor Leg Right: no drift 6a. Motor Leg Left: no drift - Limb Ataxia 7. Limb Ataxia: absent - Sensory 8. Sensory: normal - Best Language 9. Best Language: no aphasia - Dysarthria 10. Dysarthria: normal - Extinction and Inattention 11. Extinction/Inattention: no abnormality - Scoring Total Score: 0 Stroke Severity: No Stroke Symptoms
[2018-08-31] MEDS ORDERED: TORADOL IV ONE (23:28)
[2018-08-31] MEDS ORDERED: PHENERGAN PO ONE (23:28)
[2018-09-01] MEDS ORDERED: DILAUDID IV ONE (00:21)
[2018-09-01] MEDS ORDERED: NACL 0.9% 1000 ML 1,000 ML IV ONE (00:27)
[2018-09-01 14:45] VITALS: BP 102/56
== END 2018-09-01 01:14 | disposition home or self-care (01) ==
LOC: ED 21:22
DX: G43.101 Migraine with aura, not intractable, with status migrainosus (principal); R56.9 Unspecified convulsions; Z86.73 Personal history of transient ischemic attack (TIA), and cerebral infarction without residual deficits; Z90.710 Acquired absence of both cervix and uterus; Z90.79 Acquired absence of other genital organ(s); Z79.899 Other long term (current) drug therapy; Z88.0 Allergy status to penicillin; Z88.6 Allergy status to analgesic agent; Z88.1 Allergy status to other antibiotic agents
CPT/HCPCS: 96374; 96375; 96376; 99283; J1170; J1200; J1885; J2405; J2930; Q0169

== ENCOUNTER 2018-09-02 17:44 | Emergency (ER) | payer BC, MEDICARE ==
[2018-09-02 17:51] VITALS: BP 121/66
[2018-09-02] MEDS ORDERED: NACL 0.9% 1000 ML 1,000 ML IV ONE (22:43)
[2018-09-02] MEDS ORDERED: BENADRYL IV STA (22:43)
[2018-09-02] MEDS ORDERED: TORADOL IV STA (22:43)
[2018-09-02] MEDS ORDERED: ATIVAN IV STA (22:52)
--- NOTE | 2018-09-02 22:57 | Emergency Department Report ---
ED Headache HPI - General Chief Complaint: Headache Stated Complaint: YARELI MCCORMACK Time Seen by Provider: 09/02/18 22:43 Source: patient - History of Present Illness Initial Comments: 43-year-old female with a past history of chronic migraines, which resulted in occasional hemiplegia under the care of a neurologist and pain management. Usually has to earnest her migraine headache, rash sees with Dilaudid and still insists she states the other medications do not work. She was seen here 2 or 3 days ago with an exacerbation of pain that down to a 5. She said made her feel very good, however, now his reemerge 209, occasional 10, associated with photophobia. There is no scotomas, no weakness, no chest pain, no palpitations, no fever, chills, neck pain. She presents requesting another medication, round, to get her through the point where she can see her neurospecialist this coming week. States is her usual headache, characteristic And there's been no changes. She denies any trauma. Timing/Duration: 1 week Quality: moderate Head Injury Location: parietal Recent Head Trauma: frequent headaches Associated Symptoms: denies: facial pain, flushing, nasal congestion, nasal drainage, numbness in legs/feet, sinus infection, vision changes, weakness Allergies/Adverse Reactions: Allergies levetiracetam [From Keppra] Allergy (Intermediate, Verified 08/13/18 12:08) Vomiting divalproex sodium [From Depakote] Allergy (Verified 08/13/18 12:08) Unknown metoclopramide HCl [From Reglan] Allergy (Verified 08/13/18 12:08) Unknown Penicillins Allergy (Verified 08/13/18 12:08) Unknown Home Medications: Ambulatory Orders RX: Zolpidem Tartrate [Ambien CR] 12.5 mg PO QHS 05/06/16 RX: Aspirin [Aspirin TAB] 325 mg PO QDAY #30 tablet 06/30/18 RX: AtorvaSTATin [Lipitor] 40 mg PO QHS #30 tablet 06/30/18 RX: SUMAtriptan succinate [Imitrex] 0.5 ml SUB-Q BID PRN 07/02/18 RX: Butalb/Acetamin/Caff 50-325-40 [Fioricet] 1 tab PO Q6H PRN #20 tablet 07/06/18 Butalb/Acetamin/Caff 50-325-40 [Fioricet] 1 tab PO Q6HR PRN #12 tab 08/25/18 RX: Diazepam [Valium] 1 tab PO BID PRN #6 tablet 09/01/18 RX: Ondansetron [Zofran ODT TAB] 4 mg PO Q8HR PRN #20 tab.rapdis 09/01/18 methylPREDNISolone [Medrol] 4 mg PO DAILY 6 Days #1 tab.ds.pk 09/01/18 ED Review of Systems ROS: Stated complaint: YARELI MCCORMACK Other details as noted in HPI ED Past Medical Hx - Past Medical History Previous Medical History?: Yes Hx CVA: Yes (2013 Slight left sided deficits. TPA 2 weeks ago.) Hx Heart Attack/AMI: No Hx Congestive Heart Failure: No Hx Diabetes: No Hx Headaches / Migraines: Yes ( migraine headaches) Hx Kidney Stones: Yes Hx Asthma: No Hx COPD: No Additional medical history: TIA x3 since last february. 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 tonsils - Social History Smoking Status: Never Smoker Substance Use Type: None - Medications Home Medications: Home Medications Medication Instructions Recorded Confirmed Last Taken Type RX: Zolpidem Tartrate [Ambien CR] 12.5 mg PO QHS 05/06/16 07/15/18 07/13/18 22:00 History RX: Aspirin [Aspirin TAB] 325 mg PO QDAY #30 tablet 06/30/18 07/15/18 07/02/18 Rx RX: AtorvaSTATin [Lipitor] 40 mg PO QHS #30 tablet 06/30/18 07/15/18 07/13/18 22:00 Rx RX: SUMAtriptan succinate [Imitrex] 0.5 ml SUB-Q BID PRN 07/02/18 07/15/18 07/02/18 History RX: Butalb/Acetamin/Caff 50-325-40 1 tab PO Q6H PRN #20 tablet 07/06/18 07/15/18 07/14/18 16:00 Rx [Fioricet] Butalb/Acetamin/Caff 50-325-40 1 tab PO Q6HR PRN #12 tab 08/25/18 Unknown Rx [Fioricet] RX: Diazepam [Valium] 1 tab PO BID PRN #6 tablet 09/01/18 Unknown Rx RX: Ondansetron [Zofran ODT TAB] 4 mg PO Q8HR PRN #20 tab.rapdis 09/01/18 Unknown Rx methylPREDNISolone [Medrol] 4 mg PO DAILY 6 Days #1 tab.ds.pk 09/01/18 Unknown Rx ED Physical Exam - General Limitations: No Limitations General appearance: alert, in no apparent distress - Head Head exam: Present: atraumatic, normocephalic - Eye Eye exam: Present: normal appearance, PERRL, EOMI. Absent: scleral icterus, conjunctival injection, periorbital swelling, periorbital tenderness - ENT ENT exam: Present: normal exam, normal orophraynx, mucous membranes moist, TM's normal bilaterally, other (neg fundus exam) - Neck Neck exam: Present: normal inspection, full ROM. Absent: tenderness, meningismus, lymphadenopathy - Respiratory Respiratory exam: Present: normal lung sounds bilaterally. Absent: respiratory distress, wheezes, rales, rhonchi, accessory muscle use, decreased breath sounds, prolonged expiratory - Cardiovascular Cardiovascular Exam: Present: regular rate, normal rhythm. Absent: systolic murmur, diastolic murmur, rubs, gallop - GI/Abdominal GI/Abdominal exam: Present: soft, normal bowel sounds - Extremities Exam Extremities exam: Present: normal inspection - Back Exam Back exam: Present: normal inspection - Neurological Exam Neurological exam: Present: alert, oriented X3 - Psychiatric Psychiatric exam: Present: normal affect, normal mood - Skin Skin exam: Present: warm, dry, intact, normal color. Absent: rash ED Course Vital Signs 09/02/18 09/03/18 17:49 02:30 Temperature 98.2 F Pulse Rate 95 H 74 Respiratory 16 15 Rate Blood Pressure 121/66 O2 Sat by Pulse 98 99 Oximetry ED Medical Decision Making - Medical Decision Making Ms. Mejia did receive multiple rounds of analgesia and pain control to try to control her headache issues. Pain did get down to a 5 after 2 doses of fentanyl as well as steroid-induced. She was ambulatory with normal gait, normal speech, no signs of ataxia. Examination did not support in the neurological limitations or deficits. I discussed with her the appropriate use of [place] medications and the need to follow-up with her neuro and pain management to avoid these types of exacerbations. Critical care attestation.: If time is entered above; I have spent that time in minutes in the direct care of this critically ill patient, excluding procedure time. ED Disposition Clinical Impression: Chronic head pain Disposition: DC-01 TO HOME OR SELFCARE Is pt being admited?: No Does the pt Need Aspirin: No Condition: Stable Instructions: Migraine Headache (ED) Referrals: LUIS FERNANDO STEVENS MD [Primary Care Provider] - 3-5 Days Forms: Accompanied Note, Work/School Release Form(ED)
[2018-09-03] MEDS ORDERED: BENADRYL IV STA (00:03)
[2018-09-03] MEDS ORDERED: SUBLIMAZE IV STA ×2 (00:03→01:44)
[2018-09-03] MEDS ORDERED: DECADRON IV ONE (02:12)
== END 2018-09-03 02:30 | disposition home or self-care (01) ==
LOC: ED 17:44
DX: G43.909 Migraine, unspecified, not intractable, without status migrainosus (principal); G89.29 Other chronic pain; Z86.73 Personal history of transient ischemic attack (TIA), and cerebral infarction without residual deficits; Z79.899 Other long term (current) drug therapy; Z88.0 Allergy status to penicillin; Z88.1 Allergy status to other antibiotic agents; Z88.6 Allergy status to analgesic agent
CPT/HCPCS: 96374; 96375; 96376; 99282; J1100; J1200; J1885; J2060; J3010; J7030

== ENCOUNTER 2018-09-16 09:55 | Emergency (ER) | payer BC, MEDICARE ==
[2018-09-16 10:02] VITALS: BP 118/67
[2018-09-16] MEDS ORDERED: ZOFRAN IV ONE (10:12)
[2018-09-16] MEDS ORDERED: BENADRYL IV ONE (10:12)
[2018-09-16] MEDS ORDERED: TORADOL IV ONE (10:13)
--- NOTE | 2018-09-16 10:42 | Emergency Department Report ---
ED Headache HPI - General Chief Complaint: Headache Stated Complaint: MIGRAINE/N/V Time Seen by Provider: 09/16/18 10:05 - History of Present Illness Initial Comments: Pt. is a 43 y.o female with a history of migraine headaches who has been seeing neurologist who presents to ED c/o constant, sharp, non radiation 8/10 intensity type headache x 2 days. Pt. states pain located to frontal/temporal head. Patient states that she had a blood [place] and new neurologist today because she just was neurologist but was unable to be seen due to her medical records not being transferred in time. Patient presents here stating that she needed some relief from her headache before she is seen by the neurologist this week. Patient states she normally receives Botox injections from last neurologist which seems to help with her headache Pt. admits nausea, sensitivity and light Pt. denies fever, chills, nausea, vomiting, trauma, vision impairment, trauma, fall or injuries to the head Quality: moderate, achy, constant, throbbing Head Injury Location: frontal, temporal Recent Head Trauma: frequent headaches, chronic headaches Modifying Factors: improves with: rest. worse with: exposure to light Associated Symptoms: facial pain. denies: confusion, fatigue, sinus infection, stiff neck, vision changes Allergies/Adverse Reactions: Allergies levetiracetam [From Keppra] Allergy (Intermediate, Verified 08/13/18 12:08) Vomiting divalproex sodium [From Depakote] Allergy (Verified 08/13/18 12:08) Unknown metoclopramide HCl [From Reglan] Allergy (Verified 08/13/18 12:08) Unknown Penicillins Allergy (Verified 08/13/18 12:08) Unknown Home Medications: Ambulatory Orders Zolpidem Tartrate [Ambien CR] 12.5 mg PO QHS 05/06/16 Aspirin [Aspirin TAB] 325 mg PO QDAY #30 tablet 06/30/18 AtorvaSTATin [Lipitor] 40 mg PO QHS #30 tablet 06/30/18 SUMAtriptan succinate [Imitrex] 0.5 ml SUB-Q BID PRN 07/02/18 Butalb/Acetamin/Caff 50-325-40 [Fioricet] 1 tab PO Q6HR PRN #12 tab 08/25/18 Diazepam [Valium] 1 tab PO BID PRN #6 tablet 09/01/18 methylPREDNISolone [Medrol] 4 mg PO DAILY 6 Days #1 tab.ds.pk 09/01/18 Butalb/Acetamin/Caff 50-325-40 [Fioricet] 1 tab PO Q6H PRN #20 tablet 09/16/18 Ondansetron [Zofran ODT TAB] 4 mg PO Q8HR PRN #20 tab.rapdis 09/16/18 ED Review of Systems ROS: Stated complaint: MIGRAINE/N/V Other details as noted in HPI Comment: All other systems reviewed and negative ED Past Medical Hx - Past Medical History Hx CVA: Yes (2013 Slight left sided deficits. TPA 2 weeks ago.) Hx Heart Attack/AMI: No Hx Congestive Heart Failure: No Hx Diabetes: No Hx Headaches / Migraines: Yes ( migraine headaches) Hx Kidney Stones: Yes Hx Asthma: No Hx COPD: No Additional medical history: TIA x3 since last february. 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 tonsils - Social History Smoking Status: Never Smoker Substance Use Type: None - Medications Home Medications: Home Medications Medication Instructions Recorded Confirmed Last Taken Type Zolpidem Tartrate [Ambien CR] 12.5 mg PO QHS 05/06/16 07/15/18 07/13/18 22:00 History Aspirin [Aspirin TAB] 325 mg PO QDAY #30 tablet 06/30/18 07/15/18 07/02/18 Rx AtorvaSTATin [Lipitor] 40 mg PO QHS #30 tablet 06/30/18 07/15/18 07/13/18 22:00 Rx SUMAtriptan succinate [Imitrex] 0.5 ml SUB-Q BID PRN 07/02/18 07/15/18 07/02/18 History Butalb/Acetamin/Caff 50-325-40 1 tab PO Q6HR PRN #12 tab 08/25/18 Unknown Rx [Fioricet] Diazepam [Valium] 1 tab PO BID PRN #6 tablet 09/01/18 Unknown Rx methylPREDNISolone [Medrol] 4 mg PO DAILY 6 Days #1 tab.ds.pk 09/01/18 Unknown Rx Butalb/Acetamin/Caff 50-325-40 1 tab PO Q6H PRN #20 tablet 09/16/18 Unknown Rx [Fioricet] Ondansetron [Zofran ODT TAB] 4 mg PO Q8HR PRN #20 tab.rapdis 09/16/18 Unknown Rx ED Physical Exam - General Limitations: No Limitations General appearance: alert, in no apparent distress - Head Head exam: Present: atraumatic, normocephalic - Eye Eye exam: Present: normal appearance, EOMI Pupils: Present: other (dilated) - ENT ENT exam: Present: mucous membranes moist - Neck Neck exam: Present: normal inspection, full ROM. Absent: tenderness - Respiratory Respiratory exam: Present: normal lung sounds bilaterally. Absent: respiratory distress - Cardiovascular Cardiovascular Exam: Present: regular rate, normal rhythm. Absent: systolic murmur, diastolic murmur, rubs, gallop - GI/Abdominal GI/Abdominal exam: Present: soft, normal bowel sounds - Extremities Exam Extremities exam: Present: normal inspection - Back Exam Back exam: Present: normal inspection, full ROM - Neurological Exam Neurological exam: Present: alert, oriented X3, CN II-XII intact, normal gait - Expanded Neurological Exam Expanded Patient oriented to: Present: person, place, time Speech: Present: fluid speech Cerebellar function: Finger to Nose: Normal Best Eye Response (Joanne): (4) open spontaneously Best Motor Response (Joanne): (6) obeys commands Best Verbal Response (Joanne): (5) oriented [place] Total: 15 - Psychiatric Psychiatric exam: Present: normal affect, normal mood - Skin Skin exam: Present: warm, dry, intact, normal color. Absent: rash ED Course Vital Signs 09/16/18 09:59 Temperature 97.9 F Pulse Rate 60 Respiratory 16 Rate Blood Pressure 118/67 [Right] O2 Sat by Pulse 99 Oximetry ED Medical Decision Making - Medical Decision Making 43-year-old female with a history of headaches presents with similar type headache. Patient received Zofran and Benadryl and Toradol for pain. This patient was able to receive her paperwork from medical records should be taken that this is a new neurologist this week. Patient had no neurological deficit Vital signs stable she is in distress. After reviewing patient's previous visits patient has been seen here several times for this same complaint. Patient was so she needed to call and follow up with her neurologist. Patient will not be given any narcotic medication upon discharge. Based on previous visits notes points towards drug-seeking behavior, Discussed with both patient and her /boyfriend to follow-up with the neurologist. Critical care attestation.: If time is entered above; I have spent that time in minutes in the direct care of this critically ill patient, excluding procedure time. ED Disposition Clinical Impression: Migraine, Hemiplegic migraine Disposition: TO HOME OR SELFCARE Is pt being admited?: No Does the pt Need Aspirin: No Condition: Stable Instructions: Migraine Headache (ED), Acute Headache (ED) Additional Instructions: Make sure to follow up with the primary care physician as well as neurologist as discussed. Take all your medications as you've been prescribed. If you have any worsening symptoms or develop new symptoms please return to ED immediately. Prescriptions: Butalb/Acetamin/Caff 50-325-40 [Fioricet] 1 tab PO Q6H PRN #20 tablet PRN Reason: Headache Ondansetron [Zofran ODT TAB] 4 mg PO Q8HR PRN #20 tab.rapdis PRN Reason: Nausea And Vomiting Referrals: SAROJ TRINIDAD [Primary Care Provider] - 3-5 Days Forms: Work/School Release Form(ED) Time of Disposition: 10:48
== END 2018-09-16 11:24 | disposition home or self-care (01) ==
LOC: ED 09:55
DX: G43.409 Hemiplegic migraine, not intractable, without status migrainosus (principal); Z88.0 Allergy status to penicillin; Z88.5 Allergy status to narcotic agent; Z87.442 Personal history of urinary calculi; Z86.73 Personal history of transient ischemic attack (TIA), and cerebral infarction without residual deficits; Z90.710 Acquired absence of both cervix and uterus; Z79.82 Long term (current) use of aspirin
CPT/HCPCS: 96374; 96375; 99282; J1200; J1885; J2405

== ENCOUNTER 2018-09-23 23:53 | Emergency (ER) | payer BC, MEDICARE ==
[2018-09-24] MEDS ORDERED: TORADOL ONE (00:24)
[2018-09-24] MEDS ORDERED: TORADOL IM ONE (00:28)
[2018-09-24 01:39] VITALS: BP 117/54
[2018-09-24] MEDS ORDERED: DECADRON IM ONE (02:28)
--- NOTE | 2018-09-24 02:33 | Emergency Department Report ---
ED Headache HPI - General Chief Complaint: Headache Stated Complaint: H. M. MIGRAINES Time Seen by Provider: 09/24/18 02:21 Source: patient, family - History of Present Illness Initial Comments: Patient is 43 years old female with multiple ER visits for headache. Patient presented to the ER complaining of headache that started tonight. Headache is similar to what she used to have. Patient stated that her headache will only be resolved with narcotics medication. I reviewed patient previous medical record. Narcotics seeking behavior has been documented by several providers in the ER. Allergies/Adverse Reactions: Allergies levetiracetam [From Keppra] Allergy (Intermediate, Verified 08/13/18 12:08) Vomiting divalproex sodium [From Depakote] Allergy (Verified 08/13/18 12:08) Unknown metoclopramide HCl [From Reglan] Allergy (Verified 08/13/18 12:08) Unknown Penicillins Allergy (Verified 08/13/18 12:08) Unknown Home Medications: Ambulatory Orders Zolpidem Tartrate [Ambien CR] 12.5 mg PO QHS 05/06/16 Aspirin [Aspirin TAB] 325 mg PO QDAY #30 tablet 06/30/18 AtorvaSTATin [Lipitor] 40 mg PO QHS #30 tablet 06/30/18 SUMAtriptan succinate [Imitrex] 0.5 ml SUB-Q BID PRN 07/02/18 Butalb/Acetamin/Caff 50-325-40 [Fioricet] 1 tab PO Q6HR PRN #12 tab 08/25/18 Diazepam [Valium] 1 tab PO BID PRN #6 tablet 09/01/18 methylPREDNISolone [Medrol] 4 mg PO DAILY 6 Days #1 tab.ds.pk 09/01/18 Butalb/Acetamin/Caff 50-325-40 [Fioricet] 1 tab PO Q6H PRN #20 tablet 09/16/18 Ondansetron [Zofran ODT TAB] 4 mg PO Q8HR PRN #20 tab.rapdis 09/16/18 ED Review of Systems ROS: Stated complaint: H. M. MIGRAINES Other details as noted in HPI Comment: All other systems reviewed and negative Constitutional: denies: chills, fever Respiratory: denies: cough, orthopnea, shortness of breath, SOB with exertion, SOB at rest, wheezing Cardiovascular: denies: chest pain, palpitations, dyspnea on exertion Gastrointestinal: denies: abdominal pain, nausea, vomiting, diarrhea, constipation, hematemesis, melena, hematochezia Musculoskeletal: denies: back pain Neurological: headache. denies: weakness, numbness, paresthesias, confusion, a bnormal gait ED Past Medical Hx - Past Medical History Previous Medical History?: Yes Hx CVA: Yes (2013 Slight left sided deficits. TPA 2 weeks ago.) Hx Heart Attack/AMI: No Hx Congestive Heart Failure: No Hx Diabetes: No Hx Headaches / Migraines: Yes ( migraine headaches) Hx Kidney Stones: Yes Hx Asthma: No Hx COPD: No Additional medical history: TIA x3 since last february. 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 tonsils - Social History Smoking Status: Never Smoker Substance Use Type: None - Medications Home Medications: Home Medications Medication Instructions Recorded Confirmed Last Taken Type Zolpidem Tartrate [Ambien CR] 12.5 mg PO QHS 05/06/16 07/15/18 07/13/18 22:00 History Aspirin [Aspirin TAB] 325 mg PO QDAY #30 tablet 06/30/18 07/15/18 07/02/18 Rx AtorvaSTATin [Lipitor] 40 mg PO QHS #30 tablet 06/30/18 07/15/18 07/13/18 22:00 Rx SUMAtriptan succinate [Imitrex] 0.5 ml SUB-Q BID PRN 07/02/18 07/15/18 07/02/18 History Butalb/Acetamin/Caff 50-325-40 1 tab PO Q6HR PRN #12 tab 08/25/18 Unknown Rx [Fioricet] Diazepam [Valium] 1 tab PO BID PRN #6 tablet 09/01/18 Unknown Rx methylPREDNISolone [Medrol] 4 mg PO DAILY 6 Days #1 tab.ds.pk 09/01/18 Unknown Rx Butalb/Acetamin/Caff 50-325-40 1 tab PO Q6H PRN #20 tablet 09/16/18 Unknown Rx [Fioricet] Ondansetron [Zofran ODT TAB] 4 mg PO Q8HR PRN #20 tab.rapdis 09/16/18 Unknown Rx ED Physical Exam - General Limitations: No Limitations General appearance: alert, in no apparent distress - Head Head exam: Present: atraumatic, normocephalic, normal inspection - Eye Eye exam: Present: normal appearance, PERRL - ENT ENT exam: Present: normal exam, normal orophraynx, mucous membranes moist - Neck Neck exam: Present: normal inspection, full ROM. Absent: tenderness, meningismus, lymphadenopathy, thyromegaly - Respiratory Respiratory exam: Present: normal lung sounds bilaterally. Absent: respiratory distress, wheezes, rales, rhonchi, stridor, chest wall tenderness, accessory muscle use, decreased breath sounds, prolonged expiratory - Cardiovascular Cardiovascular Exam: Present: regular rate, normal rhythm, normal heart sounds - GI/Abdominal GI/Abdominal exam: Present: soft, normal bowel sounds. Absent: distended, tenderness, guarding, rebound, rigid, organomegaly, mass, bruit, pulsatile mass, hernia - Extremities Exam Extremities exam: Present: normal inspection, full ROM, normal capillary refill. Absent: tenderness, pedal edema, joint swelling, calf tenderness - Back Exam Back exam: Present: normal inspection, full ROM. Absent: tenderness, CVA tenderness (R), CVA tenderness (L), muscle spasm, paraspinal tenderness, vertebral tenderness - Neurological Exam Neurological exam: Present: alert, oriented X3, CN II-XII intact, normal gait, reflexes normal - Skin Skin exam: Present: warm, intact, normal color ED Course Vital Signs 09/24/18 09/24/18 09/24/18 00:12 01:22 01:38 Temperature 98.3 F Pulse Rate 107 H 91 H Respiratory 18 20 16 Rate Blood Pressure 108/70 Blood Pressure 117/54 [Left] O2 Sat by Pulse 98 97 Oximetry 09/24/18 01:42 Temperature Pulse Rate Respiratory 16 Rate Blood Pressure Blood Pressure [Left] O2 Sat by Pulse Oximetry ED Medical Decision Making - Radiology Data Radiology results: report reviewed - Medical Decision Making Patient is 43 years old female with multiple ER visits for headache. Patient presented to the ER complaining of headache that started tonight. Headache is similar to what she used to have. Patient stated that her headache will only be resolved with narcotics medication. I reviewed patient previous medical record. Narcotics seeking behavior has been documented by several providers in the ER. Patient received Toradol and Decadron. No narcotics will be given to the patient in the ER. Patient will need to follow-up with pain clinic. I d iscussed this with the patient and are significant other. When I pull patient records from [place] prescription drug monitoring program. 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 Patient had 48 prescriptions in less than one year. Patient just received 90 tablets of oxycodone 4 days ago. I highly recommend that this patient not to get any narcotics in the ER or on discharge. For further information please refer to the report that I attached to the patient medical record. Critical care attestation.: If time is entered above; I have spent that time in minutes in the direct care of this critically ill patient, excluding procedure time. ED Disposition Clinical Impression: Headache, Narcotic dependence Disposition: DC-01 TO HOME OR SELFCARE Is pt being admited?: No Condition: Stable Instructions: Acute Headache (ED), Narcotic Abuse (ED) Referrals: SAROJ TRINIDAD MD [Primary Care Provider] - 3-5 Days
[2018-09-24] MEDS ORDERED: BENADRYL IM ONE (02:43)
== END 2018-09-24 03:00 | disposition home or self-care (01) ==
LOC: ED 23:53
DX: G43.909 Migraine, unspecified, not intractable, without status migrainosus (principal); Z86.73 Personal history of transient ischemic attack (TIA), and cerebral infarction without residual deficits; Z88.0 Allergy status to penicillin; Z88.1 Allergy status to other antibiotic agents; Z88.8 Allergy status to other drugs, medicaments and biological substances; Z79.899 Other long term (current) drug therapy; Z90.710 Acquired absence of both cervix and uterus; Z90.89 Acquired absence of other organs
CPT/HCPCS: 96372; 99282; J1100; J1200; J1885

== ENCOUNTER 2018-10-04 17:11 | Emergency (ER) | payer BC ==
[2018-10-04 20:18] VITALS: BP 107/63
--- NOTE | 2018-10-04 22:14 | Emergency Department Report ---
ED General Adult HPI - General Chief complaint: Headache Stated complaint: MIGRAINE Time Seen by Provider: 10/04/18 21:55 Source: patient, RN notes reviewed, old records reviewed Mode of arrival: Ambulatory Limitations: Physical Limitation - History of Present Illness Initial comments: This is a 43-year-old female. The patient has a past medical history of hemiplegic migraine. Patient has had multiple hospitalizations and multiple MRI scans, multiple MRA scans, all negative for significant disease. She presents to the emergency room today with her typical constellation of symptoms for her typical hemiplegic migraine. She reports left-sided throbbing headache, chronic left-sided weakness, and nausea. The symptoms are intermittent, present for 17 weeks, weakness radiates distally, there is no midline neck pain, and is similar to prior episodes. Patient reports that symptoms typically improved with Benadryl, Compazine, Decadron. She reports that she has follow-up with her outpatient primary neurologist, Dr. Sierra, on October 10, for Botox and occipital nerve block. 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 On her most recent hospitalization, admission, neurology diagnosed her with a conversion reaction, and suggested that she may have Munchausen syndrome. Psychiatric consultation at that time was recommended. 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 -: week(s), month(s) Location: head, left, upper extremity, lower extremity Radiation: extremity Severity scale (0 -10): 10 Quality: aching Consistency: intermittent Improves with: medication Worsens with: movement - Related Data Home Medications Medication Instructions Recorded Confirmed Last Taken Zolpidem Tartrate [Ambien CR] 12.5 mg PO QHS 05/06/16 07/15/18 07/13/18 22:00 SUMAtriptan succinate [Imitrex] 0.5 ml SUB-Q BID PRN 07/02/18 07/15/18 07/02/18 Previous Rx's Medication Instructions Recorded Last Taken Type Aspirin [Aspirin TAB] 325 mg PO QDAY #30 tablet 06/30/18 07/02/18 Rx AtorvaSTATin [Lipitor] 40 mg PO QHS #30 tablet 06/30/18 07/13/18 22:00 Rx Butalb/Acetamin/Caff 50-325-40 1 tab PO Q6HR PRN #12 tab 08/25/18 Unknown Rx [Fioricet] Diazepam [Valium] 1 tab PO BID PRN #6 tablet 09/01/18 Unknown Rx methylPREDNISolone [Medrol] 4 mg PO DAILY 6 Days #1 tab.ds.pk 09/01/18 Unknown Rx Butalb/Acetamin/Caff 50-325-40 1 tab PO Q6H PRN #20 tablet 09/16/18 Unknown Rx [Fioricet] Ondansetron [Zofran ODT TAB] 4 mg PO Q8HR PRN #20 tab.rapdis 09/16/18 Unknown Rx Allergies Allergy/AdvReac Type Severity Reaction Status Date / Time levetiracetam [From Keppra] Allergy Intermediate Vomiting Verified 10/04/18 20:15 divalproex sodium Allergy Unknown Verified 10/04/18 20:15 [From Depakote] doxycycline Allergy Vomiting Verified 10/04/18 20:15 metoclopramide HCl Allergy Unknown Verified 10/04/18 20:15 [From Reglan] Penicillins Allergy Unknown Verified 10/04/18 20:15 ED Review of Systems ROS: Stated complaint: MIGRAINE Other details as noted in HPI Constitutional: denies: fever Eyes: denies: eye discharge ENT: denies: epistaxis Respiratory: denies: cough Cardiovascular: denies: syncope Gastrointestinal: denies: abdominal pain, nausea, vomiting Musculoskeletal: arthralgia, myalgia Neurological: weakness, numbness, paresthesias ED Past Medical Hx - Past Medical History Hx CVA: Yes (2013 Slight left sided deficits. TPA 2 weeks ago.) Hx Heart Attack/AMI: No Hx Congestive Heart Failure: No Hx Diabetes: No Hx Headaches / Migraines: Yes ( migraine headaches) Hx Kidney Stones: Yes Hx Asthma: No Hx COPD: No Additional medical history: TIA x3 since last february. 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 tonsils - Social History Smoking Status: Never Smoker Substance Use Type: None - Medications Home Medications: Home Medications Medication Instructions Recorded Confirmed Last Taken Type Zolpidem Tartrate [Ambien CR] 12.5 mg PO QHS 10/03/1407/15/18 07/13/18 22:00 History Aspirin [Aspirin TAB] 325 mg PO QDAY #30 tablet 06/30/18 07/15/18 07/02/18 Rx AtorvaSTATin [Lipitor] 40 mg PO QHS #30 tablet 06/30/18 07/15/18 07/13/18 22:00 Rx SUMAtriptan succinate [Imitrex] 0.5 ml SUB-Q BID PRN 07/02/18 07/15/18 07/02/18 History Butalb/Acetamin/Caff 50-325-40 1 tab PO Q6HR PRN #12 tab 08/25/18 Unknown Rx [Fioricet] Diazepam [Valium] 1 tab PO BID PRN #6 tablet 09/01/18 Unknown Rx methylPREDNISolone [Medrol] 4 mg PO DAILY 6 Days #1 tab.ds.pk 09/01/18 Unknown Rx Butalb/Acetamin/Caff 50-325-40 1 tab PO Q6H PRN #20 tablet 09/16/18 Unknown Rx [Fioricet] Ondansetron [Zofran ODT TAB] 4 mg PO Q8HR PRN #20 tab.rapdis 09/16/18 Unknown Rx ED Physical Exam - General Limitations: Physical Limitation General appearance: alert, in no apparent distress - Head Head exam: Present: atraumatic, normocephalic - Eye Eye exam: Present: normal appearance, PERRL, EOMI, other (visual acuity intact to finger counting, color perception, reading at a close distance). Absent: nystagmus - ENT ENT exam: Present: normal exam, normal orophraynx, mucous membranes moist, normal external ear exam - Neck Neck exam: Present: normal inspection, full ROM. Absent: tenderness, meningismus - Respiratory Respiratory exam: Present: normal lung sounds bilaterally. Absent: respiratory distress - Cardiovascular Cardiovascular Exam: Present: regular rate, normal rhythm, normal heart sounds. Absent: bradycardia, tachycardia, irregular rhythm, systolic murmur, diastolic murmur, rubs, gallop - GI/Abdominal GI/Abdominal exam: Present: soft. Absent: distended, tenderness, guarding, rebound, rigid, pulsatile mass - Extremities Exam Extremities exam: Present: normal inspection, full ROM, other (2+ pulses noted in the bilateral upper, lower extremities. Compartments soft. No long bony tenderness. The pelvis is stable.). Absent: pedal edema, joint swelling, calf tenderness - Back Exam Back exam: Present: normal inspection, full ROM. Absent: tenderness, CVA tenderness (R), paraspinal tenderness, vertebral tenderness - Neurological Exam Neurological exam: Present: alert (patient is moving the bilateral upper and lower extremities spontaneously. She is holding a cellular phone, and watching a YouTube video currently. On her initial examination, both of her toes are pointed, via plantar flexion. During the history and physical, she is noted to be moving her feet without difficulty. Sensation is intact to light touch in 4 extremities.), oriented X3, other (there is no facial droop. The tongue is midline. Extraocular movements are intact bilaterally. V1, V2, V3 intact to light touch bilaterally. Phonating normally. Shoulder shrug intact bilaterally. Hearing intact bilaterally.) - Psychiatric Psychiatric exam: Absent: homicidal ideation, suicidal ideation - Skin Skin exam: Present: warm, abrasion, other (superficial abrasion noted to the anterior aspect of the right knee.) ED Course Vital Signs 10/04/18 20:15 Temperature 98.3 F Pulse Rate 86 Respiratory 16 Rate Blood Pressure 107/63 O2 Sat by Pulse 97 Oximetry - Reevaluation(s) Reevaluation #1: 10/04/18 22:14 Filled ID Written Drug QTY Days Prescriber Rx # Pharmacy * Refills Daily Dose Pymt Type [employer] 09/18/2018 2 08/20/2018 ZOLPIDEM TART ER 12.5 MG TAB 30.0 30 JE REMI [id number] [facility]' ([id number]) 1 [place] 09/17/2018 2 09/17/2018 OXYCODONE-ACETAMINOPHEN 10-325 90.0 30 JA EST [id number] [facility]' ([id number]) 0 45.0 [place] 09/17/2018 2 09/17/2018 DIAZEPAM 10 MG TABLET 90.0 30 JA EST [id number] [facility]' ([id number]) 0 [place] 09/01/2018 2 09/01/2018 DIAZEPAM 10 MG TABLET 6.0 3 GE KYRIE [id number] WALGR ([id number]) 0 Comm [facility] Reevaluation #2: 10/04/18 22:26 Differential diagnosis, including but not limited to: Conversion disorder, Munchhausen syndrome, hemiplegic migraine Assessment and plan: 43-year-old female with recurrent hemiplegic migraine. She is afebrile with reassuring vital signs. She is clinically sober. There is no midline cervical spine tenderness. She is noted to be moving 4 extremities. She is holding a cellular phone, and watching a YouTube video without difficulty. The patient does not appear to have an emergent medical condition at this time. She is not homicidal, she is not suicidal, she is alert and oriented 3, and does exhibit decision-making capacity. She does not meet criteria for emergent psychiatric consultation or 1013 at this time. The patient is entitled to symptom treatment, and she will therefore be given intranasal lidocaine, via sphenopalatine ganglion block, in addition to magnesium sulfate, and Decadron. No active vomiting, she will be given Zofran for her complaint of nausea, as it is this provider's preference for complaints of nausea. I see no medical indication for IV or oral diphenhydramine at this time. Reevaluation #3: 10/05/18 00:51 Patient and family indicated that they did not want to be discharged. 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 I explained to the patient that given the nature of her symptoms, and past medical visitations, it would be impossible to completely control and abolished her symptoms. I also discussed the neurology consultation from June 2018, and again offer the patient psychiatric consultation which she declined. The patient is again requesting IV Benadryl, which I explained, without IV metoclopramide, would not be appropriate for migrainous headaches, as it is euphorgenic I offered the patient oral Benadryl, which she declined. I also informed patient and significant other that the patient did not appear to have an acute medical emergency condition at this time, and that she would need to follow up with her primary care doctor or neurologist ED Medical Decision Making - Lab Data Vital Signs 10/04/18 20:15 Temperature 98.3 F Pulse Rate 86 Respiratory 16 Rate Blood Pressure 107/63 O2 Sat by Pulse 97 Oximetry Critical care attestation.: If time is entered above; I have spent that time in minutes in the direct care of this critically ill patient, excluding procedure time. ED Disposition Clinical Impression: Hemiplegic migraine Disposition: DC-01 TO HOME OR SELFCARE Is pt being admited?: No Does the pt Need Aspirin: No Condition: Stable Instructions: Migraine Headache (ED) Additional Instructions: Continue outpatient medications. Follow-up with your primary care doctor or neurology doctor within the next 7-10 days. Return to the emergency room right away with new, worsening or different symptoms. Referrals: JOHN FINNEGAN MD [Referring] - 3-5 Days MIL GOODRICH MD [Staff Physician] - 3-5 Days
[2018-10-04] MEDS ORDERED: DECADRON IV ONE (22:20)
[2018-10-04] MEDS ORDERED: XYLOCAINE TOPICAL 4% TP ONE (22:20)
[2018-10-04] MEDS ORDERED: MAGNESIUM SULFATE 2GM/50ML 2 GM/50 ML BAG IV ONE (22:20)
[2018-10-04] MEDS ORDERED: TORADOL IV ONE (22:21)
[2018-10-04] MEDS ORDERED: ZOFRAN IV ONE (22:23)
== END 2018-10-05 01:04 | disposition home or self-care (01) ==
LOC: ED 17:11
DX: G43.409 Hemiplegic migraine, not intractable, without status migrainosus (principal); Z86.73 Personal history of transient ischemic attack (TIA), and cerebral infarction without residual deficits; Z90.710 Acquired absence of both cervix and uterus; Z90.89 Acquired absence of other organs; Z90.79 Acquired absence of other genital organ(s); Z79.899 Other long term (current) drug therapy; Z88.0 Allergy status to penicillin; Z88.1 Allergy status to other antibiotic agents; Z88.8 Allergy status to other drugs, medicaments and biological substances
CPT/HCPCS: 96365; 96375; 99282; J1100; J1885; J2405; J3475

== ENCOUNTER 2018-12-09 19:46 | Emergency (ER) | payer BC, MEDICARE ==
[2018-12-09 20:18] LABS: Basophils # (Auto) 0.1 K/mm3 (0.0-0.1); Basophils % (Auto) 0.9 % (0.0-1.8); Eosinophils # (Auto) 0.2 K/mm3 (0.0-0.4); Hematocrit 44.8 % (30.3-42.9); Hemoglobin 15.2 gm/dl (10.1-14.3); Lymphocytes # (Auto) 2.8 K/mm3 (1.2-5.4); Lymphocytes % (Auto) 45.8 % (13.4-35.0); Mean Corpuscular HGB Conc 34 % (30-34); Mean Corpuscular Volume 91 fl (79-97); Monocytes # (Auto) 0.3 K/mm3 (0.0-0.8); Monocytes % (Auto) 5.2 % (0.0-7.3); Platelet Count 384 K/mm3 (140-440); Red Blood Count 4.92 M/mm3 (3.65-5.03)
[2018-12-09 20:32] LABS: INR 0.94 (0.87-1.13); Partial Thromboplastin Time 28.9 Sec. (24.2-36.6)
[2018-12-09 20:36] LABS: BUN/Creatinine Ratio 7; Blood Urea Nitrogen 5 mg/dL (7-17); Calcium 9.4 mg/dL (8.4-10.2); Hemolysis Index 7
--- NOTE | 2018-12-09 21:29 | Cat Scan Report ---
PROCEDURE: CT HEAD/BRAIN WO CON TECHNIQUE: Spiral CT imaging of the brain was obtained without IV contrast. HISTORY: neuro deficits <6hrs or sx present upon awakening COMPARISONS: Prior CT scan of the brain 07/14/2018 FINDINGS: Brain: Brain density appears normal. No evidence of intracranial hemorrhage. No parenchymal hemorr belinda, mass lesions or mass effect are seen. No abnormal extra-axial fluid collects or masses are see n. Ventricles: Ventricles are normal size and are midline. Bone Windows: No evidence of skull fracture. Paranasal sinuses: Postsurgical changes appear to be visualized medial wall of the maxillary sinuses. There may have been partial resection. Entire maxillary sinuses are not visualized. Visualized paran alonzo sinuses are clear. Mastoid air cells: Clear. IMPRESSION: Negative unenhanced CT scan of the brain. This document is electronically signed by Juice Em MD., Dec 09 2018 09:27:22 PM ET
[2018-12-09] MEDS ORDERED: BENADRYL IV ONE (23:10)
[2018-12-09] MEDS ORDERED: TORADOL IV ONE (23:10)
[2018-12-09] MEDS ORDERED: MORPHINE IV ONE (23:10)
[2018-12-09] MEDS ORDERED: ZOFRAN IV ONE (23:10)
[2018-12-09] MEDS ORDERED: NACL 0.9% 1000 ML 1,000 ML IV ONE (23:11)
[2018-12-09] MEDS ORDERED: DECADRON IV ONE (23:37)
--- NOTE | 2018-12-10 00:20 | Emergency Department Report ---
ED Headache HPI - General Chief Complaint: Headache Stated Complaint: MIGRAINES(HEMIPLEIGIC) Time Seen by Provider: 12/09/18 22:48 Source: patient Exam Limitations: no limitations - History of Present Illness Initial Comments: 43-year-old female with a past medical history of hemiplegic migraines presents to the hospital complaints of hemiplegic migraine. Patient suffers from chronic headaches for the last 6 years. She's had repeated visits to the ER, possibly stasis, MRIs, MRAs, and CT head. She's even received TPA due to suspicion of acute stroke due to hemiplegic migraine. He has also been suggested that patient might have much has an syndrome or conversion disorder. Patient is currently in the care of a neurologist Dr. Jerome and is treated with Botox and occipital nerve block. She has upcoming visit later this week. Chronically patient is prescribed 30 day prescription of Percocet 10 mg, Valium 10 mg, and she's also over the next of her headache. Patient has had a headache for the past 2 days as left-sided with associated photophobia, and sound sensitivity. She states she is having a ringing or discomfort in her left ear was typically means she is going to have a really bad migraine. Today around 5:30 PM she developed some difficulty speaking, feeling like the left side of her face was drooping, some mild left-sided weakness and numbness. She also developed some vomiting with by mouth intolerance and was unable to keep down her meds. The symptoms are all similar to previous episodes of hemiplegic migraines in the past. Patient is various medications that had been used to control her symptoms and states that typically Benadryl, morphine, and Compazine or Zofran helps her symptoms. It is also mentioned on previous record that patient has received Decadron with improvement in addition to the other listed meds Allergies/Adverse Reactions: Allergies levetiracetam [From Keppra] Allergy (Intermediate, Verified 10/04/18 20:15) Vomiting divalproex sodium [From Depakote] Allergy (Verified 10/04/18 20:15) Unknown doxycycline Allergy (Verified 10/04/18 20:15) Vomiting metoclopramide HCl [From Reglan] Allergy (Verified 10/04/18 20:15) Unknown Penicillins Allergy (Verified 10/04/18 20:15) Unknown sumatriptan [From Imitrex] Allergy (Verified 12/09/18 19:52) Unknown Home Medications: Ambulatory Orders Zolpidem Tartrate [Ambien CR] 12.5 mg PO QHS 05/06/16 Aspirin [Aspirin TAB] 325 mg PO QDAY #30 tablet 06/30/18 AtorvaSTATin [Lipitor] 40 mg PO QHS #30 tablet 06/30/18 SUMAtriptan succinate [Imitrex] 0.5 ml SUB-Q BID PRN 07/02/18 Butalb/Acetamin/Caff 50-325-40 [Fioricet] 1 tab PO Q6HR PRN #12 tab 08/25/18 Diazepam [Valium] 1 tab PO BID PRN #6 tablet 09/01/18 methylPREDNISolone [Medrol] 4 mg PO DAILY 6 Days #1 tab.ds.pk 09/01/18 Butalb/Acetamin/Caff 50-325-40 [Fioricet] 1 tab PO Q6H PRN #20 tablet 09/16/18 Ondansetron [Zofran ODT TAB] 4 mg PO Q8HR PRN #20 tab.rapdis 09/16/18 ED Review of Systems ROS: Stated complaint: MIGRAINES(HEMIPLEIGIC) Other details as noted in HPI Comment: All other systems reviewed and negative ED Past Medical Hx - Past Medical History Hx CVA: Yes (2013 Slight left sided deficits. TPA 2 weeks ago.) Hx Heart Attack/AMI: No Hx Congestive Heart Failure: No Hx Diabetes: No Hx Headaches / Migraines: Yes ( migraine headaches) Hx Kidney Stones: Yes Hx Asthma: No Hx COPD: No Additional medical history: TIA x3 since last february. 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 tonsils - Social History Smoking Status: Never Smoker - Medications Home Medications: Home Medications Medication Instructions Recorded Confirmed Last Taken Type Zolpidem Tartrate [Ambien CR] 12.5 mg PO QHS 05/06/16 07/15/18 07/13/18 22:00 History Aspirin [Aspirin TAB] 325 mg PO QDAY #30 tablet 06/30/18 07/15/18 07/02/18 Rx AtorvaSTATin [Lipitor] 40 mg PO QHS #30 tablet 06/30/18 07/15/18 07/13/18 22:00 Rx SUMAtriptan succinate [Imitrex] 0.5 ml SUB-Q BID PRN 07/02/18 07/15/18 07/02/18 History Butalb/Acetamin/Caff 50-325-40 1 tab PO Q6HR PRN #12 tab 08/25/18 Unknown Rx [Fioricet] Diazepam [Valium] 1 tab PO BID PRN #6 tablet 09/01/18 Unknown Rx methylPREDNISolone [Medrol] 4 mg PO DAILY 6 Days #1 tab.ds.pk 09/01/18 Unknown Rx Butalb/Acetamin/Caff 50-325-40 1 tab PO Q6H PRN #20 tablet 09/16/18 Unknown Rx [Fioricet] Ondansetron [Zofran ODT TAB] 4 mg PO Q8HR PRN #20 tab.rapdis 09/16/18 Unknown Rx ED Physical Exam - General Limitations: No Limitations - Other Other exam information: General: No limitations, patient is alert in no acute distress Head exam: Atraumatic, normocephalic Eyes exam: Normal appearance, pupils equal reactive to light, extraocular movements intact, positive photosensitivity ENT: Moist mucous membrane, normal oropharynx Neck exam: Normal inspection, full range of motion, no meningismus nontender Respiratory exam: Clear to auscultation bilateral, no wheezes, rales, crackles Cardiovascular: Normal rate and rhythm, normal heart sounds Abdomen: Soft, nondistended, and nontender, with normal bowel sounds, no rebound, or guarding Extremity: Full range of motion normal inspection no deformity Back: Normal Inspection, full range of motion, no tenderness Neurologic: Alert, oriented x3, of left eyelid droop, mild left facial droop. Force S5 left arm strength compared to 5/5 on the right. 5/5 bilateral lower extremity strength. Decreased sensation to light touch to left arm and left leg. Psychiatric: normal affect, normal mood Skin: Warm, dry, intact ED Course Vital Signs 12/09/18 12/09/18 12/09/18 20:01 20:06 22:15 Temperature 98.4 F 97 F L Pulse Rate 97 H 99 H 67 Respiratory 18 16 14 Rate Blood Pressure 100/55 Blood Pressure 100/55 106/56 [Right] O2 Sat by Pulse 98 99 100 Oximetry 12/09/18 12/10/18 23:24 00:45 Temperature Pulse Rate 79 80 Respiratory 17 18 Rate Blood Pressure Blood Pressure 107/61 95/47 [Right] O2 Sat by Pulse 99 98 Oximetry - Reevaluation(s) Reevaluation #1: 12/10/18 01:26 after all meds pt's pain is 6/10 intranasal lidocaine swab inserted in left nostril to attempt sphenopalatine ganglion block - Procedure Description Procedures done: attempted sphenopalatine ganglion block. Cotton tip soaked in 4% of topical lidocaine. cotton tip inserted into left nare and left in place for 10 min. ED Medical Decision Making - Lab Data Result diagrams: 12/09/18 20:12/09/18 20: Lab Results 12/09/18 12/09/18 12/09/18 Range/Units 20:01 20:01 20:01 WBC 6.1 (4.5-11.0) K/mm3 RBC 4.92 (3.65-5.03) M/mm3 Hgb 15.2 H (10.1-14.3) gm/dl Hct 44.8 H (30.3-42.9) % MCV 91 (79-97) fl MCH 31 (28-32) pg MCHC 34 (30-34) % RDW 13.0 L (13.2-15.2) % Plt Count 384 (140-440) K/mm3 Lymph % (Auto) 45.8 H (13.4-35.0) % Morton % (Auto) 5.2 (0.0-7.3) % Eos % (Auto) 4.0 (0.0-4.3) % Baso % (Auto) 0.9 (0.0-1.8) % Lymph # 2.8 (1.2-5.4) K/mm3 Morton # 0.3 (0.0-0.8) K/mm3 Eos # 0.2 (0.0-0.4) K/mm3 Baso # 0.1 (0.0-0.1) K/mm3 Seg Neutrophils % 44.1 (40.0-70.0) % Seg Neutrophils # 2.7 (1.8-7.7) K/mm3 PT 13.1 (12.2-14.9) Sec. INR 0.94 (0.87-1.13) APTT 28.9 (24.2-36.6) Sec. Thrombin Time (15.1-19.6) Sec. Sodium 144 (137-145) mmol/L Potassium 4.2 (3.6-5.0) mmol/L Chloride 104.7 (98-107) mmol/L Carbon Dioxide 27 (22-30) mmol/L Anion Gap 17 mmol/L BUN 5 L (7-17) mg/dL Creatinine 0.7 (0.7-1.2) mg/dL Estimated GFR > 60 ml/min BUN/Creatinine Ratio 7 % Glucose 71 (65-100) mg/dL POC Glucose (70-105) Calcium 9.4 (8.4-10.2) mg/dL Troponin T < 0.010 (0.00-0.029) ng/mL 12/09/18 12/09/18 Range/Units 20:01 20:05 WBC (4.5-11.0) K/mm3 RBC (3.65-5.03) M/mm3 Hgb (10.1-14.3) gm/dl Hct (30.3-42.9) % MCV (79-97) fl MCH (28-32) pg MCHC (30-34) % RDW (13.2-15.2) % Plt Count (140-440) K/mm3 Lymph % (Auto) (13.4-35.0) % Morton % (Auto) (0.0-7.3) % Eos % (Auto) (0.0-4.3) % Baso % (Auto) (0.0-1.8) % Lymph # (1.2-5.4) K/mm3 Morton # (0.0-0.8) K/mm3 Eos # (0.0-0.4) K/mm3 Baso # (0.0-0.1) K/mm3 Seg Neutrophils % (40.0-70.0) % Seg Neutrophils # (1.8-7.7) K/mm3 PT (12.2-14.9) Sec. INR (0.87-1.13) APTT (24.2-36.6) Sec. Thrombin Time 15.5 (15.1-19.6) Sec. Sodium (137-145) mmol/L Potassium (3.6-5.0) mmol/L Chloride (98-107) mmol/L Carbon Dioxide (22-30) mmol/L Anion Gap mmol/L BUN (7-17) mg/dL Creatinine (0.7-1.2) mg/dL Estimated GFR ml/min BUN/Creatinine Ratio % Glucose (65-100) mg/dL POC Glucose 81 (70-105) Calcium (8.4-10.2) mg/dL Troponin T (0.00-0.029) ng/mL - Radiology Data Radiology results: report reviewed PROCEDURE: CT HEAD/BRAIN WO CON TECHNIQUE: Spiral CT imaging of the brain was obtained without IV contrast. HISTORY: neuro deficits <6hrs or sx present upon awakening COMPARISONS: Prior CT scan of the brain 07/14/2018 FINDINGS: Brain: Brain density appears normal. No evidence of intracranial hemorrhage. No parenchymal hemorrhage, mass lesions or mass effect are seen. No abnormal extra-axial fluid collects or masses are seen. Ventricles: Ventricles are normal size and are midline. Bone Windows: No evidence of skull fracture. Paranasal sinuses: Postsurgical changes appear to be visualized medial wall of the maxillary sinuses. There may have been partial resection. Entire maxillary sinuses are not visualized. Visualized paranasal sinuses are clear. Mastoid air cells: Clear. IMPRESSION: Negative unenhanced CT scan of the brain. - Medical Decision Making pain much improved with ed tx plan to d/c to f/u with pmd and neruologist pt has pain and nausea meds at home - Differential Diagnosis migraine, stroke, ICH, conversion disorder Critical Care Time: No Critical care attestation.: If time is entered above; I have spent that time in minutes in the direct care of this critically ill patient, excluding procedure time. ED Disposition Clinical Impression: Hemiplegic migraine Disposition: DC-01 TO HOME OR SELFCARE Is pt being admited?: No Does the pt Need Aspirin: No Condition: Stable Instructions: Migraine Headache (ED) Additional Instructions: Continue your current medication.. Follow up with your doctor or the clinic/doctor provided. Return if symptoms worsen as indicated by your discharge instructions Referrals: Your, neurologist [Other] - 2-3 Days Time of Disposition: 01:50
[2018-12-10] MEDS ORDERED: COMPAZINE IV ONE (00:30)
[2018-12-10] MEDS ORDERED: XYLOCAINE TOPICAL 4% TP ONE (01:14)
[2018-12-10 01:58] VITALS: BP 94/48
== END 2018-12-10 01:58 | disposition home or self-care (01) ==
LOC: ED 19:46
DX: G43.409 Hemiplegic migraine, not intractable, without status migrainosus (principal); Z88.1 Allergy status to other antibiotic agents; Z88.8 Allergy status to other drugs, medicaments and biological substances; Z86.73 Personal history of transient ischemic attack (TIA), and cerebral infarction without residual deficits; Z87.442 Personal history of urinary calculi; Z90.710 Acquired absence of both cervix and uterus; Z79.82 Long term (current) use of aspirin
CPT/HCPCS: 36415; 70450; 80048; 82962; 84484; 85025; 85610; 85670; 85730; 93005; 93010; 96361; 96374; 96375; 99284; J0780; J1100; J1200; J1885; J2270; J2405; J7030

== ENCOUNTER 2019-01-01 21:11 | Emergency (ER) | payer BC, MEDICARE ==
--- NOTE | 2019-01-01 21:43 | Emergency Department Report ---
Blank Doc - Documentation Documentation: pt with a PMHx hemiplegic migraines states she takes lamictal, CBD oil, percocet, and valium, botox injections pt presents with left frontal GARCIAS that began 4 days ago (+) photophobia no vision changes states has left sided weakness which she states is chronic no other PMHx non smoker non drinker denies any other drug use
[2019-01-01] MEDS ORDERED: NACL 0.9% 1000 ML 1,000 ML IV ONE (23:30)
[2019-01-01] MEDS ORDERED: BENADRYL IV ONE (23:30)
[2019-01-01] MEDS ORDERED: TORADOL IV ONE (23:30)
[2019-01-01] MEDS ORDERED: ZOFRAN IV ONE (23:32)
--- NOTE | 2019-01-02 00:12 | Emergency Department Report ---
ED Headache HPI - General Chief Complaint: Headache Stated Complaint: MIGRAINE Time Seen by Provider: 01/01/19 21:40 - History of Present Illness Initial Comments: This is a 43-year-old female nontoxic, well nourished in appearance, no acute signs of distress presents to the ED with c/o of acute on chronic headache. Patient describes headache as left frontal with level of 8 out of 10. Patient denies thunderclap headache. Patient denies any radiation of pain. Patient denies any head trauma. Patient denies any visual changes. Patient denies worse headache. Patient stated that darkness makes headache better and bright lights make the headache worse. Patient denies any numbness, tingling, fever, chills, nausea, vomiting, chest pain, shortness of breath, stiff neck. Patient denies facial drooping or one sided weakness. Patient denies any radiation of pain. Status sees a neurologist which she received Botox which headache subsides but for the past weeks has not seen a neurologist due to insurance and stated has an appointment later on this month. Timing/Duration: episodic Quality: mild Head Injury Location: frontal Recent Head Trauma: no recent headache/trauma Associated Symptoms: denies symptoms. denies: confusion, fatigue, facial pain, fever/chills, flushing, loss of consciousness, nausea/vomiting, nasal congestion, nasal drainage, numbness in legs/feet, rash, seizures, sinus infection, stiff neck, vision changes, weakness Allergies/Adverse Reactions: Allergies levetiracetam [From Keppra] Allergy (Intermediate, Verified 10/04/18 20:15) Vomiting divalproex sodium [From Depakote] Allergy (Verified 10/04/18 20:15) Unknown doxycycline Allergy (Verified 10/04/18 20:15) Vomiting metoclopramide HCl [From Reglan] Allergy (Verified 10/04/18 20:15) Unknown Penicillins Allergy (Verified 10/04/18 20:15) Unknown sumatriptan [From Imitrex] Allergy (Verified 12/09/18 19:52) Unknown Home Medications: Ambulatory Orders Zolpidem Tartrate [Ambien CR] 12.5 mg PO QHS 05/06/16 Aspirin 325 mg PO QDAY #30 tablet 06/30/18 AtorvaSTATin [Lipitor] 40 mg PO QHS #30 tablet 06/30/18 SUMAtriptan succinate [Imitrex] 0.5 ml SUB-Q BID PRN 07/02/18 Butalb/Acetamin/Caff 50-325-40 [Fioricet] 1 tab PO Q6HR PRN #12 tab 08/25/18 Diazepam [Valium] 1 tab PO BID PRN #6 tablet 09/01/18 methylPREDNISolone [Medrol] 4 mg PO DAILY 6 Days #1 tab.ds.pk 09/01/18 Butalb/Acetamin/Caff 50-325-40 [Fioricet 50-325-40] 1 tab PO Q6H PRN #20 tablet 09/16/18 Ondansetron [Zofran ODT TAB] 4 mg PO Q8HR PRN #20 tab.rapdis 09/16/18 Butalb/Acetaminophen/Caffeine [Fioricet 50-300-40 mg CAP] 1 cap PO Q6HR PRN #12 cap 01/02/19 ED Review of Systems ROS: Stated complaint: MIGRAINE Other details as noted in HPI Constitutional: denies: chills, fever Eyes: denies: eye pain, eye discharge, vision change ENT: denies: ear pain, throat pain Respiratory: denies: cough, shortness of breath, wheezing Cardiovascular: denies: chest pain, palpitations Endocrine: no symptoms reported Gastrointestinal: denies: abdominal pain, nausea, diarrhea Genitourinary: denies: urgency, dysuria, discharge Musculoskeletal: denies: back pain, joint swelling, arthralgia Skin: denies: rash, lesions Neurological: headache. denies: weakness, paresthesias Psychiatric: denies: anxiety, depression Hematological/Lymphatic: denies: easy bleeding, easy bruising ED Past Medical Hx - Past Medical History Previous Medical History?: Yes Hx CVA: Yes (2014 Slight left sided deficits. TPA 2 weeks ago.) Hx Heart Attack/AMI: No Hx Congestive Heart Failure: No Hx Diabetes: No Hx Headaches / Migraines: Yes ( migraine headaches) Hx Kidney Stones: Yes Hx Asthma: No Hx COPD: No Additional medical history: TIA x3 since last february. 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 tonsils - Social History Smoking Status: Never Smoker Substance Use Type: None - Medications Home Medications: Home Medications Medication Instructions Recorded Confirmed Last Taken Type Zolpidem Tartrate [Ambien CR] 12.5 mg PO QHS 05/06/16 07/15/18 07/13/18 22:00 History Aspirin 325 mg PO QDAY #30 tablet 06/30/18 07/15/18 07/02/18 Rx AtorvaSTATin [Lipitor] 40 mg PO QHS #30 tablet 06/30/18 07/15/18 07/13/18 22:00 Rx SUMAtriptan succinate [Imitrex] 0.5 ml SUB-Q BID PRN 07/02/18 07/15/18 07/02/18 History Butalb/Acetamin/Caff 50-325-40 1 tab PO Q6HR PRN #12 tab 08/25/18 Unknown Rx [Fioricet] Diazepam [Valium] 1 tab PO BID PRN #6 tablet 09/01/18 Unknown Rx methylPREDNISolone [Medrol] 4 mg PO DAILY 6 Days #1 tab.ds.pk 09/01/18 Unknown Rx Butalb/Acetamin/Caff 50-325-40 1 tab PO Q6H PRN #20 tablet 09/16/18 Unknown Rx [Fioricet 50-325-40] Ondansetron [Zofran ODT TAB] 4 mg PO Q8HR PRN #20 tab.rapdis 09/16/18 Unknown Rx Butalb/Acetaminophen/Caffeine 1 cap PO Q6HR PRN #12 cap 01/02/19 Unknown Rx [Fioricet 50-300-40 mg CAP] ED Physical Exam - General Limitations: No Limitations General appearance: alert, in no apparent distress - Head Head exam: Present: atraumatic, normocephalic - Eye Eye exam: Present: normal appearance, PERRL, EOMI - Neck Neck exam: Present: normal inspection, full ROM. Absent: tenderness, meningismus, lymphadenopathy - Extremities Exam Extremities exam: Present: normal inspection, full ROM, normal capillary refill. Absent: tenderness - Back Exam Back exam: Present: normal inspection, full ROM. Absent: tenderness, CVA tenderness (R), CVA tenderness (L), muscle spasm, paraspinal tenderness, vertebral tenderness, rash noted - Neurological Exam Neurological exam: Present: alert, oriented X3, normal gait - Expanded Neurological Exam Expanded Patient oriented to: Present: person, place, time Cranial nerves: EOM's Intact: Normal, Facial Sensation: Normal Cerebellar function: Finger to Nose: Normal Upper motor neuron: Pronator Drift: Normal, Sensory Extinction: Normal Sensory exam: Upper Extremity Light Touch: Normal, Upper Extremity Pin Prick: Normal, Upper Extremity Temperature: Normal, Lower Extremity Light Touch: Normal, Lower Extremity Pin Prick: Normal, Lower Extremity Temperature: Normal Motor strength exam: RUE: 5, LUE: 5, RLE: 5, LLE: 5 Best Eye Response (Joanne): (4) open spontaneously Best Motor Response (Norman): (6) obeys commands Best Verbal Response (Joanne): (5) oriented Joanne Total: 15 - Psychiatric Psychiatric exam: Present: normal affect, normal mood - Skin Skin exam: Present: warm, dry, intact, normal color. Absent: rash ED Course Vital Signs 01/01/19 21:28 Temperature 98.4 F Pulse Rate 110 H Respiratory 16 Rate Blood Pressure 109/69 O2 Sat by Pulse 99 Oximetry - Reevaluation(s) Reevaluation #1: 01/02/19 00:08 Patient is speaking in full sentences with no signs of distress noted. ED Medical Decision Making - Medical Decision Making This is a 43-year-old female that presents with chroninc migrane headache. Sharlene ent is stable and was examined by me. Patient is neurologically stable. There is no stiff neck or neck pain. Vital signs are stable. Patient is afebrile. Patient has been seen in this ED many times and had CT scans as well that I went over. Patient received Benadryl, Reglan, Toradol, and 1 L of normal saline which the patient stated that headache has subsided and resolved. Patient requested to be treated additional with 25 mg benadryl and Decadron as this helps her. [place] [employer] shows significant amount of narcotics prescribed. Patient was instructed not to operate any machinery after discharged due to drowsiness of Benadryl. Patient stated that a family member will drive patient home. Patient is discharged with Fioricet. Patient was referred to Follow-up with a primary care/neurologist doctor in 3-5 days or if symptoms worsen and continue return to emergency room as soon as possible. At time of discharge, the patient does not seem toxic or ill in appearance. No acute signs of distress noted. Patient agrees to discharge treatment plan of care. No further questions noted by the patient. [place] [employer]: 12/28/2018 2 12/26/2018 DIAZEPAM 10 MG TABLET 90.0 30 JA EST [id number] TIARA' ([id number]) 0 Comm Ins 12/14/2018 2 11/15/2018 ZOLPIDEM TART ER 12.5 MG TAB 30.0 30 JA EST [id number] TIARA' ([id number]) 1 Comm Ins 12/12/2018 2 12/12/2018 OXYCODONE-ACETAMINOPHEN 10-325 90.0 30 JA EST [id number] TIARA' ([id number]) 0 45.0 MME Comm Ins 12/12/2018 2 12/12/2018 PHENTERMINE 37.5 MG TABLET 30.0 30 JA EST [id number] TIARA' ([id number]) 0 Private Pay 11/29/2018 2 09/17/2018 DIAZEPAM 10 MG TABLET 90.0 30 JA EST [id number] TIARA' ([id number]) 1 Comm Ins 11/15/2018 2 11/15/2018 ZOLPIDEM TART ER 12.5 MG TAB 30.0 30 JA EST [id number] TIARA' ([id number]) 0 Comm Ins 11/13/2018 2 09/17/2018 OXYCODONE-ACETAMINOPHEN 10-325 90.0 30 JA EST [id number] TIARA' ([id number]) 0 45.0 MME Comm Ins 10/14/2018 2 09/17/2018 OXYCODONE-ACETAMINOPHEN 10-325 90.0 30 JA EST [id number] TI[facility]' ([id number]) 0 45.0 MME Comm Ins 10/14/2018 2 08/20/2018 ZOLPIDEM TART ER 12.5 MG TAB 30.0 30 JE REMI [id number] [facility]' ([id number]) 2 Comm Ins 09/18/2018 2 08/20/2018 ZOLPIDEM TART ER 12.5 MG TAB 30.0 30 JE REMI [id number] [facility]' ([id number]) 1 Comm Ins 09/17/2018 2 09/17/2018 OXYCODONE-ACETAMINOPHEN 10-325 90.0 30 JA EST [id number] [facility]' ([id number]) 0 45.0 MME Comm Ins 09/17/2018 2 09/17/2018 DIAZEPAM 10 MG TABLET 90.0 30 JA EST [id number] [facility]ARA' ([id number]) 0 [place] 09/01/2018 2 09/01/2018 DIAZEPAM 10 MG TABLET 6.0 3 KYRIE [id number] [facility] ([id number]) 0 Comm Ins 08/20/2018 2 08/20/2018 OXYCODONE-ACETAMINOPHEN 10-325 30.0 30 JE REMI [id number] [facility]ARA' ([id number]) 0 15.0 MME Comm Ins 08/20/2018 2 08/20/2018 ZOLPIDEM TART ER 12.5 MG TAB 30.0 30 JE REMI [id number] [facility]' ([id number]) 0 [place] 07/25/2018 2 07/24/2018 ZOLPIDEM TART ER 12.5 MG TAB 30.0 30 JE REMI [id number] [facility] ([id number]) 0 [place] 07/18/2018 2 07/17/2018 OXYCODONE-ACETAMINOPHEN 10-325 30.0 30 JE REMI [id number] [facility]' ([id number]) 0 15.0 [place] 07/17/2018 2 07/02/2018 OXYCODONE-ACETAMINOPHEN 5-325 5.0 2 ZU AHM [id number] RAQUEL ([id number]) 0 18.75 MME Private Pay [place] 07/14/2018 2 07/06/2018 YGCYNN-ATJNCWTP-IYRM 50-325-40 20.0 5 SC HOS [id number] [facility] ([id number]) 0 [place] 06/24/2018 2 04/26/2018 ZOLPIDEM TART ER 12.5 MG TAB 30.0 30 JA EST [id number] [facility]' ([id number]) 2 [place] 06/19/2018 2 04/24/2018 DIAZEPAM 10 MG TABLET 60.0 30 JA EST [id number] [facility]' ([id number]) 2 [place] 06/17/2018 2 06/17/2018 OXYCODONE-ACETAMINOPHEN 10-325 30.0 30 JE REMI [id number] [facility]' ([id number]) 0 15.0 [place] 05/26/2018 2 05/26/2018 PQOSSX-KPOXCKCL-KMAD 50-300-40 20.0 6 AK FLE [id number] RAQUEL (0033) 0 Private [place] 05/24/2018 2 05/24/2018 OXYCODONE-ACETAMINOPHEN 10-325 30.0 10 JE REMI [id number] [facility]' ([id number]) 0 45.0 MME Comm Ins 05/24/2018 2 04/26/2018 ZOLPIDEM TART ER 12.5 MG TAB 30.0 30 JA EST [id number] [facility]' ([id number]) 1 Comm Ins 05/22/2018 2 04/24/2018 DIAZEPAM 10 MG TABLET 60.0 30 JA EST [id number] [facility]' ([id number]) 1 Comm Ins 04/26/2018 2 04/05/2018 HMSCSJ-CTRJ-CKXNXBSWLKY-CODEIN 30.0 15 JE REMI [id number] [facility]' ([id number]) 1 9.0 MME Comm Ins 04/26/2018 2 04/26/2018 ZOLPIDEM TART ER 12.5 MG TAB 30.0 30 JA EST [id number] [facility]' ([id number]) 0 Comm Ins 04/24/2018 2 04/24/2018 DIAZEPAM 10 MG TABLET 60.0 30 JA EST [id number] TI[facility]' ([id number]) 0 Comm Ins 04/13/2018 2 04/06/2018 ACETAMINOPHEN-COD #3 TABLET 30.0 5 CO ZARCO [id number] [facility] ([id number]) 0 27.0 MME Private Pay 04/08/2018 2 04/04/2018 OXYCODONE-ACETAMINOPHEN 10-325 30.0 10 JA EST [id number] TIARA' ([id number]) 0 45.0 MME Comm Ins 04/05/2018 2 04/05/2018 CARISOPRODOL 350 MG TABLET 20.0 20 JE REMI [id number] TIARA' ([id number]) 0 Private Pay 04/05/2018 2 04/05/2018 MHCVKF-XRDH-STGZEBBQONA-CODEIN 30.0 15 JE REMI [id number] [facility]' ([id number]) 0 9.0 MME Comm Ins 03/29/2018 2 12/07/2017 ZOLPIDEM TART ER 12.5 MG TAB 30.0 30 AL MAL [id number] TIARA' ([id number]) 1 Comm Ins 03/27/2018 2 03/11/2018 DIAZEPAM 10 MG TABLET 60.0 30 JA EST [id number] TIARA' ([id number]) 0 Comm Ins 03/11/2018 2 03/11/2018 OXYCODONE-ACETAMINOPHEN 10-325 30.0 30 JA EST [id number] TIARA' ([id number]) 0 15.0 MME Comm Ins 03/01/2018 2 03/01/2018 FHILYH-HEMYGOUY-DUNF 50-325-40 10.0 2 AL ISK [id number] [facility] (3616) 0 Comm Ins 03/01/2018 2 12/07/2017 ZOLPIDEM TART ER 12.5 MG TAB 30.0 30 AL MAL [id number] TIAAR' ([id number]) 0 Comm Ins 02/26/2018 2 12/07/2017 DIAZEPAM 10 MG TABLET 90.0 30 AL MAL [id number] [facility]ARA' ([id number]) 0 Comm Ins 02/07/2018 1 02/07/2018 EQGFYS-THJPKGHEFHE-VIXV-CODEIN 12.0 2 HI GOR [id number] [facility] (1047) 0 27.0 MME Private Pay 02/01/2018 2 12/07/2017 ZOLPIDEM TART ER 12.5 MG TAB 30.0 30 AL MAL [id number] [facility] (8239) 0 [place] 01/27/2018 2 12/07/2017 DIAZEPAM 10 MG TABLET 90.0 30 AL MAL [id number] [facility] (8239) 1 [place] 01/18/2018 2 01/18/2018 TRAMADOL HCL 50 MG TABLET 15.0 5 YA MAN [id number] [facility] (8239) 0 15.0 M[place] 01/04/2018 2 01/04/2018 ZOLPIDEM TART ER 12.5 MG TAB 30.0 30 AL MAL [id number] [facility] (8239) 0 [place] 01/02/2018 2 01/01/2018 OXYCODONE-ACETAMINOPHEN 5-325 40.0 6 AM PHI [id number] [facility] (8239) 0 50.0 MME [place] Critical care attestation.: If time is entered above; I have spent that time in minutes in the direct care of this critically ill patient, excluding procedure time. ED Disposition Clinical Impression: Chronic migraine Disposition: DC-01 TO HOME OR SELFCARE Is pt being admited?: No Does the pt Need Aspirin: No Condition: Stable Instructions: Migraine Headache (ED) Additional Instructions: Follow-up with a primary care/neurologist doctor in 3-5 days or if symptoms worsen and continue return to emergency room as soon as possible. Prescriptions: Butalb/Acetaminophen/Caffeine [Fioricet 50-300-40 mg CAP] 1 cap PO Q6HR PRN #12 cap PRN Reason: Pain , Severe (7-10) Referrals: LUIS FERNANDO STEVENS MD [Primary Care Provider] - 3-5 Days PRIMARY MD ANJELICA [Referring] - 3-5 Days SANFORD ZIMMER MD [Staff Physician] - 3-5 Days [facility] [Outside] - 3-5 Days Forms: Work/School Release Form(ED)
[2019-01-02] MEDS ORDERED: DECADRON IV ONE (00:13)
[2019-01-02] MEDS ORDERED: BENADRYL IV ONE (00:13)
[2019-01-02] MEDS ORDERED: DECADRON ONE (00:16)
[2019-01-02 01:51] VITALS: BP 110/69
== END 2019-01-02 01:25 | disposition home or self-care (01) ==
LOC: ED 21:11
DX: G43.909 Migraine, unspecified, not intractable, without status migrainosus (principal); Z86.73 Personal history of transient ischemic attack (TIA), and cerebral infarction without residual deficits; Z90.710 Acquired absence of both cervix and uterus; Z79.82 Long term (current) use of aspirin; Z88.1 Allergy status to other antibiotic agents; Z88.8 Allergy status to other drugs, medicaments and biological substances
CPT/HCPCS: 96374; 96375; 99282; J1100; J1200; J1885; J2405; J7030

== ENCOUNTER 2019-01-10 17:38 | Emergency (ER) | payer BC ==
[2019-01-10] MEDS ORDERED: DECADRON IM ONE (17:51)
[2019-01-10] MEDS ORDERED: NACL 0.9% 1000 ML 1,000 ML IV ONE (17:51)
[2019-01-10] MEDS ORDERED: ZOFRAN IV ONE (17:51)
--- NOTE | 2019-01-10 17:51 | Event Note ---
ED Screening Note ED Screening Note: a/c migraine between neurologists so she is not getting her botox rx lamictal fe valium ambien percocet phenergan ---not taking routinely per pt pmh migraines psh hysterectomy- full This initial assessment/diagnostic orders/clinical plan/treatment(s) is/are subject to change based on patients health status, clinical progression and re- assessment by fellow clinical providers in the ED. Further treatment and workup at subsequent clinical providers discretion. Patient/guardian urged not to elope from the ED as their condition may be serious if not clinically assessed and managed. Initial orders include: to ACC for fluids/meds
[2019-01-10] MEDS ORDERED: TORADOL IV ONE (17:52)
[2019-01-10 18:49] LABS: Bacteria,Urine 3+ /HPF (Negative); Bilirubin,Urine NEG (Negative); Blood,Urine SM (Negative); Color,Urine Straw (Yellow); Mucus,Urine FEW /HPF; Protein,Urine <15 mg/dL mg/dL (Negative); Urobilinogen,Urine < 2.0 mg/dL (<2.0)
--- NOTE | 2019-01-10 23:32 | Emergency Department Report ---
ED Headache HPI - General Chief Complaint: Headache Stated Complaint: N/V Time Seen by Provider: 01/10/19 17:48 Source: patient, RN notes reviewed Exam Limitations: no limitations - History of Present Illness Initial Comments: This is a 43-year-old female who presents to the emergency room with the acute chronic migraine with nausea. Past medical history remarkable, CVA without deficits, kidney stones, and TIAs. Patient states she has a neurologist and usually get Botox injections to control migraines but unable to get them due to insurance. She reports headache is on the left frontal and over 24 hours. Timing/Duration: 24 hours Quality: severe, constant, throbbing Head Injury Location: frontal Recent Head Trauma: no recent headache/trauma, chronic headaches Modifying Factors: improves with: exposure to light, other (noise) Associated Symptoms: nausea/vomiting. denies: confusion, fatigue, facial pain, fever/chills, flushing, loss of consciousness, nasal congestion, nasal drainage, numbness in legs/feet, rash, seizures, sinus infection, stiff neck, vision changes, weakness Allergies/Adverse Reactions: Allergies levetiracetam [From Keppra] Allergy (Intermediate, Verified 01/10/19 17:40) Vomiting divalproex sodium [From Depakote] Allergy (Verified 01/10/19 17:40) Unknown doxycycline Allergy (Verified 01/10/19 17:40) Vomiting metoclopramide HCl [From Reglan] Allergy (Verified 01/10/19 17:40) Unknown Penicillins Allergy (Verified 01/10/19 17:40) Unknown sumatriptan [From Imitrex] Allergy (Verified 01/10/19 17:40) Unknown Home Medications: Ambulatory Orders Zolpidem Tartrate [Ambien CR] 12.5 mg PO QHS 05/06/16 Aspirin 325 mg PO QDAY #30 tablet 06/30/18 AtorvaSTATin [Lipitor] 40 mg PO QHS #30 tablet 06/30/18 SUMAtriptan succinate [Imitrex] 0.5 ml SUB-Q BID PRN 07/02/18 Butalb/Acetamin/Caff 50-325-40 [Fioricet] 1 tab PO Q6HR PRN #12 tab 08/25/18 Diazepam [Valium] 1 tab PO BID PRN #6 tablet 09/01/18 methylPREDNISolone [Medrol] 4 mg PO DAILY 6 Days #1 tab.ds.pk 09/01/18 Ondansetron [Zofran ODT TAB] 4 mg PO Q8HR PRN #20 tab.rapdis 09/16/18 Butalb/Acetaminophen/Caffeine [Fioricet 50-300-40 mg CAP] 1 cap PO Q6HR PRN #12 cap 01/02/19 ED Review of Systems ROS: Stated complaint: N/V Other details as noted in HPI Constitutional: denies: chills, fever Respiratory: denies: cough, shortness of breath, wheezing Cardiovascular: denies: chest pain, palpitations Gastrointestinal: nausea. denies: abdominal pain, vomiting, diarrhea Skin: denies: rash, lesions Neurological: headache. denies: weakness, paresthesias Psychiatric: denies: anxiety, depression ED Past Medical Hx - Past Medical History Previous Medical History?: Yes Hx CVA: Yes (2013 Slight left sided deficits. TPA 2 weeks ago.) Hx Heart Attack/AMI: No Hx Congestive Heart Failure: No Hx Diabetes: No Hx Headaches / Migraines: Yes ( migraine headaches) Hx Kidney Stones: Yes Hx Asthma: No Hx COPD: No Additional medical history: TIA x3 since last february. 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 tonsils - Social History Smoking Status: Never Smoker Substance Use Type: None - Medications Home Medications: Home Medications Medication Instructions Recorded Confirmed Last Taken Type Zolpidem Tartrate [Ambien CR] 12.5 mg PO QHS 05/06/16 07/15/18 07/13/18 22:00 History Aspirin 325 mg PO QDAY #30 tablet 06/30/18 07/15/18 07/02/18 Rx AtorvaSTATin [Lipitor] 40 mg PO QHS #30 tablet 06/30/18 07/15/18 07/13/18 22:00 Rx SUMAtriptan succinate [Imitrex] 0.5 ml SUB-Q BID PRN 07/02/18 07/15/18 07/02/18 History Butalb/Acetamin/Caff 50-325-40 1 tab PO Q6HR PRN #12 tab 08/25/18 Unknown Rx [Fioricet] Diazepam [Valium] 1 tab PO BID PRN #6 tablet 09/01/18 Unknown Rx methylPREDNISolone [Medrol] 4 mg PO DAILY 6 Days #1 tab.ds.pk 09/01/18 Unknown Rx Ondansetron [Zofran ODT TAB] 4 mg PO Q8HR PRN #20 tab.rapdis 09/16/18 Unknown Rx Butalb/Acetaminophen/Caffeine 1 cap PO Q6HR PRN #12 cap 01/02/19 Unknown Rx [Fioricet 50-300-40 mg CAP] ED Physical Exam - General Limitations: No Limitations General appearance: alert, in no apparent distress - Respiratory Respiratory exam: Present: normal lung sounds bilaterally. Absent: respiratory distress - Cardiovascular Cardiovascular Exam: Present: regular rate, normal rhythm. Absent: systolic murmur, diastolic murmur, rubs, gallop - GI/Abdominal GI/Abdominal exam: Present: soft, normal bowel sounds - Neurological Exam Neurological exam: Present: alert, oriented X3, normal gait - Psychiatric Psychiatric exam: Present: normal affect, normal mood - Skin Skin exam: Present: warm, dry, intact, normal color. Absent: rash ED Course Vital Signs 01/10/19 17:53 Temperature 97.9 F Pulse Rate 97 H Respiratory 16 Rate Blood Pressure 117/78 O2 Sat by Pulse 98 Oximetry ED Medical Decision Making - Lab Data Lab Results 01/10/19 Range/Units 18:22 Urine Color Straw (Yellow) Urine Turbidity Slightly-cloudy (Clear) Urine pH 7.0 (5.0-7.0) Ur Specific [place] 1.003 (1.003-1.030) Urine Protein <15 mg/dl (Negative) mg/dL Urine Glucose (UA) Neg (Negative) mg/dL Urine Ketones Neg (Negative) mg/dL Urine Blood Sm (Negative) Urine Nitrite Neg (Negative) Urine Bilirubin Neg (Negative) Urine Urobilinogen < 2.0 (<2.0) mg/dL Ur Leukocyte Esterase Neg (Negative) Urine WBC (Auto) 4.0 (0.0-6.0) /HPF Urine RBC (Auto) 1.0 (0.0-6.0) /HPF U Epithel Cells (Auto) 6.0 (0-13.0) /HPF Urine Bacteria (Auto) 3+ (Negative) /HPF Urine Mucus Few /HPF - Medical Decision Making This is a 43 y.o. female that presents with headache for 10 days. History of migraines. Patient is stable and was examined by me. Followed by neurology but unable to get Botox injections which usually manage migraines. Patient has acute on chronic migraines. Symptoms are similar to the past. There are no signs of acute distress. Given toradol, Decadron, Benadryl, zofran, and normal saline 1L bolus once in ER. Follow up with PCP or neurology. Continue taking medication prescribed. No further questions noted by the patient. Discharged home in stable condition. Follow up with PCP in 24-72 hours. [facility] 01/02/2019 3 01/02/2019 VQGNYH-DOOYCTHB-NELF 50-300-40 12.0 3 MA BAB [id number] [facility] (1047) [address] 12/28/2018 2 12/26/2018 DIAZEPAM 10 MG TABLET 90.0 30 JA EST [id number] TIARA' ([id number]) [address] 12/14/2018 2 11/15/2018 ZOLPIDEM TART ER 12.5 MG TAB 30.0 30 JA EST [id number] TIARA' ([id number]) [address] 12/12/2018 2 12/12/2018 OXYCODONE-ACETAMINOPHEN 10-325 90.0 30 JA EST [id number] TIARA' ([id number]) [address] 12/12/2018 2 12/12/2018 PHENTERMINE 37.5 MG TABLET 30.0 30 JA EST [id number] TIARA' ([id number]) [address] 11/29/2018 2 09/17/2018 DIAZEPAM 10 MG TABLET 90.0 30 JA EST [id number] TIARA' ([id number]) [address] 11/15/2018 2 11/15/2018 ZOLPIDEM TART ER 12.5 MG TAB 30.0 30 JA EST [id number] TIARA' ([id number]) [address] 11/13/2018 2 09/17/2018 OXYCODONE-ACETAMINOPHEN 10-325 90.0 30 JA EST [id number] [facility]ARA' ([id number]) [address] 10/14/2018 2 09/17/2018 OXYCODONE-ACETAMINOPHEN 10-325 90.0 30 JA EST [id number] TIARA' ([id number]) [address] 10/14/2018 2 08/20/2018 ZOLPIDEM TART ER 12.5 MG TAB 30.0 30 JE REMI [id number] TIARA' ([id number]) [address] 09/18/2018 2 08/20/2018 ZOLPIDEM TART ER 12.5 MG TAB 30.0 30 JE REMI [id number] TIARA' ([id number]) 1 Comm Ins 09/17/2018 2 09/17/2018 OXYCODONE-ACETAMINOPHEN 10-325 90.0 30 JA EST [id number] TIARA' ([id number]) 0 45.0 MME Comm Ins 09/17/2018 2 09/17/2018 DIAZEPAM 10 MG TABLET 90.0 30 JA EST [id number] TIARA' ([id number]) [address] 09/01/2018 2 09/01/2018 DIAZEPAM 10 MG TABLET 6.0 3 GE KYRIE [id number] [facility] (1047) [address] 08/20/2018 2 08/20/2018 OXYCODONE-ACETAMINOPHEN 10-325 30.0 30 JE REMI [id number] TIARA' ([id number]) [address] 08/20/2018 2 08/20/2018 ZOLPIDEM TART ER 12.5 MG TAB 30.0 30 REMI [id number] TIARA' ([id number]) [address] Critical care attestation.: If time is entered above; I have spent that time in minutes in the direct care of this critically ill patient, excluding procedure time. ED Disposition Clinical Impression: Migraine Qualifiers: Migraine type: without aura Status migrainosus presence: with status migrainosus Intractability: not intractable Qualified Code(s): G43.001 - Migraine without aura, not intractable, with status migrainosus Disposition: - TO HOME OR SELFCARE Is pt being admited?: No Does the pt Need Aspirin: No Condition: Stable Instructions: Migraine Headache (ED), Acute Headache (ED) Additional Instructions: Take medication at start of headache. Moderate caffeine intake. Eat at scheduled times or 3 meals a day with snacks. Follow up with primary care provider in 24-72 hours. Referrals: [facility] [Provider Group] - 3-5 Days LUIS FERNANDO STEVENS MD [Primary Care Provider] - 3-5 Days CARRIE MCGREGOR MD [Staff Physician] - 3-5 Days Time of Disposition: 01:39
[2019-01-11] MEDS ORDERED: BENADRYL IV ONE (01:12)
[2019-01-11] MEDS ORDERED: TORADOL ONE (01:15)
[2019-01-11] MEDS ORDERED: NACL 0.9% 1000 ML 1,000 ML ONE (01:16)
[2019-01-11] MEDS ORDERED: DECADRON ONE (01:16)
[2019-01-11] MEDS ORDERED: ZOFRAN ONE (01:16)
[2019-01-11 02:00] VITALS: BP 94/36
== END 2019-01-11 02:01 | disposition home or self-care (01) ==
LOC: ED 17:38
DX: G43.909 Migraine, unspecified, not intractable, without status migrainosus (principal); Z86.73 Personal history of transient ischemic attack (TIA), and cerebral infarction without residual deficits; Z87.442 Personal history of urinary calculi; Z90.711 Acquired absence of uterus with remaining cervical stump; Z90.89 Acquired absence of other organs; Z98.890 Other specified postprocedural states; Z88.1 Allergy status to other antibiotic agents; Z88.0 Allergy status to penicillin; Z88.8 Allergy status to other drugs, medicaments and biological substances; Z88.9 Allergy status to unspecified drugs, medicaments and biological substances
CPT/HCPCS: 81001; 96361; 96372; 96374; 96375; 99283; J1100; J1200; J1885; J2405; J7030

== ENCOUNTER 2019-02-07 13:43 | Emergency (ER) | payer BC, MEDICARE ==
--- NOTE | 2019-02-07 14:06 | Event Note ---
ED Screening Note ED Screening Note: hx of migraines has been in the ED multiple times for this complaint states she has had a GARCIAS since 01/30/19 states she has been taking percocet sees a neurologist PSHx hysterectomy This initial assessment/diagnostic orders/clinical plan/treatment(s) is/are subject to change based on patients health status, clinical progression and re- assessment by fellow clinical providers in the ED. Further treatment and workup at subsequent clinical providers discretion. Patient/guardian urged not to elope from the ED as their condition may be serious if not clinically assessed and managed.
--- NOTE | 2019-02-07 17:42 | Emergency Department Report ---
<MAHSA KAPLAN - Last Filed: 02/07/19 18:29> ED Headache HPI - General Chief Complaint: Headache Stated Complaint: MIGRAINE Time Seen by Provider: 02/07/19 14:04 - History of Present Illness Initial Comments: hx of migraines has been in the ED multiple times for this complaint states she has had a GARCIAS since 01/30/19 states she has been taking percocet sees a neurologist PSHx hysterectomy Timing/Duration: 1 week Quality: severe Head Injury Location: global Recent Head Trauma: frequent headaches Modifying Factors: improves with: exposure to light Associated Symptoms: nausea/vomiting Allergies/Adverse Reactions: Allergies levetiracetam [From Keppra] Allergy (Intermediate, Verified 02/07/19 13:45) Vomiting divalproex sodium [From Depakote] Allergy (Verified 02/07/19 13:45) Unknown doxycycline Allergy (Verified 02/07/19 13:45) Vomiting metoclopramide HCl [From Reglan] Allergy (Verified 02/07/19 13:45) Unknown Penicillins Allergy (Verified 02/07/19 13:45) Unknown sumatriptan [From Imitrex] Allergy (Verified 02/07/19 13:45) Unknown Home Medications: Ambulatory Orders Zolpidem Tartrate [Ambien CR] 12.5 mg PO QHS 05/06/16 Aspirin 325 mg PO QDAY #30 tablet 06/30/18 AtorvaSTATin [Lipitor] 40 mg PO QHS #30 tablet 06/30/18 SUMAtriptan succinate [Imitrex] 0.5 ml SUB-Q BID PRN 07/02/18 Diazepam [Valium] 1 tab PO BID PRN #6 tablet 09/01/18 methylPREDNISolone [Medrol] 4 mg PO DAILY 6 Days #1 tab.ds.pk 09/01/18 Ondansetron [Zofran ODT TAB] 4 mg PO Q8HR PRN #20 tab.rapdis 09/16/18 Butalb/Acetaminophen/Caffeine [Fioricet 50-300-40 mg CAP] 1 cap PO Q6HR PRN #12 cap 01/02/19 Butalb/Acetamin/Caff 50-325-40 [Fioricet 50-325-40] 1 tab PO Q6HR PRN #14 tab 02/07/19 Promethazine [Phenergan] 25 mg PO Q6HR PRN #24 tab 02/07/19 ED Review of Systems Comment: All other systems reviewed and negative Constitutional: denies: chills, fever Eyes: denies: eye pain, eye discharge, vision change ENT: denies: ear pain, throat pain Respiratory: denies: cough, shortness of breath, wheezing Cardiovascular: denies: chest pain, palpitations Gastrointestinal: nausea, vomiting Neurological: headache ED Past Medical Hx - Past Medical History Hx CVA: Yes (2014 Slight left sided deficits.) Hx Heart Attack/AMI: No Hx Congestive Heart Failure: No Hx Diabetes: No Hx Headaches / Migraines: Yes ( migraine headaches) Hx Kidney Stones: Yes Hx Asthma: No Hx COPD: No Additional medical history: 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 tonsils - Social History Smoking Status: Never Smoker Substance Use Type: None - Medications Home Medications: Home Medications Medication Instructions Recorded Confirmed Last Taken Type Zolpidem Tartrate [Ambien CR] 12.5 mg PO QHS 05/06/16 07/15/18 07/13/18 22:00 History Aspirin 325 mg PO QDAY #30 tablet 06/30/18 07/15/18 07/02/18 Rx AtorvaSTATin [Lipitor] 40 mg PO QHS #30 tablet 06/30/18 07/15/18 07/13/18 22:00 Rx SUMAtriptan succinate [Imitrex] 0.5 ml SUB-Q BID PRN 07/02/18 07/15/18 07/02/18 History Diazepam [Valium] 1 tab PO BID PRN #6 tablet 09/01/18 Unknown Rx methylPREDNISolone [Medrol] 4 mg PO DAILY 6 Days #1 tab.ds.pk 09/01/18 Unknown Rx Ondansetron [Zofran ODT TAB] 4 mg PO Q8HR PRN #20 tab.rapdis 09/16/18 Unknown Rx Butalb/Acetaminophen/Caffeine 1 cap PO Q6HR PRN #12 cap 01/02/19 Unknown Rx [Fioricet 50-300-40 mg CAP] Butalb/Acetamin/Caff 50-325-40 1 tab PO Q6HR PRN #14 tab 02/07/19 Unknown Rx [Fioricet 50-325-40] Promethazine [Phenergan] 25 mg PO Q6HR PRN #24 tab 02/07/19 Unknown Rx ED Physical Exam - General Limitations: No Limitations General appearance: alert, in no apparent distress - Head Head exam: Present: atraumatic, normocephalic - Eye Eye exam: Present: normal appearance - ENT ENT exam: Present: mucous membranes moist - Neck Neck exam: Present: normal inspection - Neurological Exam Neurological exam: Present: alert, oriented X3 - Expanded Neurological Exam Expanded Cranial nerves: EOM's Intact: Normal, Gag Reflex: Normal, Tongue Deviation: Normal, Nystagmus: Normal, Facial Sensation: Normal, Facial Palsy with Forehead Movement: Normal, Facial Palsy without Forehead Movement: Normal Cerebellar function: Finger to Nose: Normal, Heel to [place]: Normal, Romberg: Normal Upper motor neuron: Jhoan Neglect: Normal, Pronator Drift: Normal, Babinski Sign: Normal, Sensory Extinction: Normal Sensory exam: Upper Extremity Light Touch: Normal, Upper Extremity Pin Prick: No rmal, Upper Extremity Temperature: Normal, UE 2 Point Discrimination: Normal, Lower Extremity Light Touch: Normal, Lower Extremity Pin Prick: Normal, Lower Extremity Temperature: Normal, LE 2 Point Discrimination: Normal Motor strength exam: RUE: 4, LUE: 4, RLE: 4, LLE: 4 Best Eye Response (Joanne): (4) open spontaneously Best Motor Response (Joanne): (6) obeys commands Best Verbal Response (Joanne): (5) oriented Joanne Total: 15 - Psychiatric Psychiatric exam: Present: normal affect, normal mood - Skin Skin exam: Present: warm, dry, intact, normal color. Absent: rash ED Medical Decision Making - Medical Decision Making 23-year-old female with a history of migraines comes in for a migraine that started 01/30/2019. Patient reports taking her medications but not helping. Patient admits to nausea and vomiting photophobia. Patient denies any recent trauma. Be given an IV Benadryl 50 Zofran for dexamethasone 8 and Toradol 15. She'll be discharged home on her chronic medications. ED Disposition Clinical Impression: Nausea and vomiting in adult Headache, chronic migraine without aura Qualifiers: Status migrainosus presence: with status migrainosus Intractability: not intractable Qualified Code(s): G43.701 - Chronic migraine without aura, not intractable, with status migrainosus Disposition: DC-01 TO HOME OR SELFCARE Is pt being admited?: No Does the pt Need Aspirin: No Condition: Stable Instructions: Migraine Headache (ED), Acute Nausea and Vomiting (ED) Additional Instructions: Take medications with food, drink plenty of fluids and follow-up with your primary care physician in 3-5 days for reevaluation. Return to the ED immediately if symptoms get worse. Prescriptions: Butalb/Acetamin/Caff 50-325-40 [Fioricet 50-325-40] 1 tab PO Q6HR PRN #14 tab PRN Reason: Headache Promethazine [Phenergan] 25 mg PO Q6HR PRN #24 tab PRN Reason: Nausea Referrals: LUIS FERNANDO STEVENS MD [Primary Care Provider] - 3-5 Days Forms: Accompanied Note, Work/School Release Form(ED) Print Language: FAROESE <GEORGE SCHUSTER - Last Filed: 02/07/19 21:21> ED Review of Systems ROS: Stated complaint: MIGRAINE Other details as noted in HPI ED Course Vital Signs 02/07/19 02/07/19 02/07/19 14:04 19:17 20:27 Temperature 98.1 F 98.2 F Pulse Rate 77 74 Respiratory 16 18 18 Rate Blood Pressure 102/61 Blood Pressure 122/63 [Left] O2 Sat by Pulse 99 99 Oximetry 02/07/19 20:28 Temperature Pulse Rate Respiratory 18 Rate Blood Pressure Blood Pressure [Left] O2 Sat by Pulse Oximetry ED Medical Decision Making - Medical Decision Making I assumed care for the 43-year-old white female with chronic migraine headaches and seizures, treated in this ED for acute exacerbation of her chronic migraine headaches at shift change [facility] Patient was initially treated with anti-inflammatories, given fluids and antibiotics. On reevaluation, patient resting comfortably in the bed with the lights off and still complains of severe migraine headache despite the treatment. Patient states that she has previously been treated with morphine 5 mg IV and Compazine which helped her pain. Patient treated in the ED again with Compazine 10 mg IV, and Dilaudid 0.5 mg IV. On reevaluation, patient's pain is well controlled and he significantly improved. Patient was discharged home on antiemetics and migraine headache medications Fioricet, and advised to follow-up with her primary care physician and neurologist in the next 3-5 days for reevaluation. Patient advised to return to the ED immediately if symptoms get worse. Patient is hemodynamically stable at the time of discharge. - Differential Diagnosis chronic migraine headache; Nausea and vomiting Critical care attestation.: If time is entered above; I have spent that time in minutes in the direct care of this critically ill patient, excluding procedure time. ED Disposition Time of Disposition: 21:18
[2019-02-07] MEDS ORDERED: DECADRON IV ONE (18:19)
[2019-02-07] MEDS ORDERED: TORADOL IV ONE ×2 (18:19→19:41)
[2019-02-07] MEDS ORDERED: BENADRYL IV ONE (18:19)
[2019-02-07] MEDS ORDERED: ZOFRAN IV ONE (18:19)
[2019-02-07] MEDS ORDERED: NACL 0.9% 1000 ML 1,000 ML IV ONE (19:00)
[2019-02-07] MEDS ORDERED: TYLENOL PO ONE (19:41)
[2019-02-07] MEDS ORDERED: DILAUDID IV ONE (19:55)
[2019-02-07] MEDS ORDERED: COMPAZINE IV ONE (19:56)
[2019-02-07 20:28] VITALS: BP 122/63
== END 2019-02-07 21:40 | disposition home or self-care (01) ==
LOC: ED 13:43
DX: G43.701 Chronic migraine without aura, not intractable, with status migrainosus (principal); R11.2 Nausea with vomiting, unspecified; Z86.73 Personal history of transient ischemic attack (TIA), and cerebral infarction without residual deficits; Z87.442 Personal history of urinary calculi; Z88.0 Allergy status to penicillin; Z88.1 Allergy status to other antibiotic agents; Z88.8 Allergy status to other drugs, medicaments and biological substances
CPT/HCPCS: 96361; 96374; 96375; 99282; J0780; J1100; J1170; J1200; J1885; J2405; J7030

== ENCOUNTER 2019-02-20 13:44 | Emergency (ER) | payer BC, MEDICARE ==
--- NOTE | 2019-02-20 13:53 | Event Note ---
ED Screening Note Date of service: 02/20/19 Time: 13:52 ED Screening Note: 43 y/o female comes in for GARCIAS/migraine. This initial assessment/diagnostic orders/clinical plan/treatment(s) is/are subject to change based on patients health status, clinical progression and re- assessment by fellow clinical providers in the ED. Further treatment and workup at subsequent clinical providers discretion. Patient/guardian urged not to elope from the ED as their condition may be serious if not clinically assessed and managed. Initial orders include:
[2019-02-20] MEDS ORDERED: DECADRON IM ONE (15:27)
--- NOTE | 2019-02-20 15:35 | Emergency Department Report ---
ED Headache HPI - General Chief Complaint: Headache Stated Complaint: HEMIPELGIC MIGRANE Time Seen by Provider: 02/20/19 14:45 Source: patient - History of Present Illness Initial Comments: Patient is a 43 years old female with history of migraine and multiple ER visits and multiple narcotics prescription. Patient is familiar to me since I saw several times before. Patient is specifically asking for Dilaudid and Benadryl, stating that this is what her neurologist want her to get in the ER. Patient stated that her symptom is similar to her previous headache. She denied any weakness numbness or tingling sensation. Allergies/Adverse Reactions: Allergies levetiracetam [From Keppra] Allergy (Intermediate, Verified 02/07/19 13:45) Vomiting divalproex sodium [From Depakote] Allergy (Verified 02/07/19 13:45) Unknown doxycycline Allergy (Verified 02/07/19 13:45) Vomiting metoclopramide HCl [From Reglan] Allergy (Verified 02/07/19 13:45) Unknown Penicillins Allergy (Verified 02/07/19 13:45) Unknown sumatriptan [From Imitrex] Allergy (Verified 02/07/19 13:45) Unknown Home Medications: Ambulatory Orders Zolpidem Tartrate [Ambien CR] 12.5 mg PO QHS 05/06/16 Aspirin 325 mg PO QDAY #30 tablet 06/30/18 AtorvaSTATin [Lipitor] 40 mg PO QHS #30 tablet 06/30/18 SUMAtriptan succinate [Imitrex] 0.5 ml SUB-Q BID PRN 07/02/18 Diazepam [Valium] 1 tab PO BID PRN #6 tablet 09/01/18 methylPREDNISolone [Medrol] 4 mg PO DAILY 6 Days #1 tab.ds.pk 09/01/18 Ondansetron [Zofran ODT TAB] 4 mg PO Q8HR PRN #20 tab.rapdis 09/16/18 Butalb/Acetaminophen/Caffeine [Fioricet 50-300-40 mg CAP] 1 cap PO Q6HR PRN #12 cap 01/02/19 Butalb/Acetamin/Caff 50-325-40 [Fioricet 50-325-40] 1 tab PO Q6HR PRN #14 tab 02/07/19 Promethazine [Phenergan] 25 mg PO Q6HR PRN #24 tab 02/07/19 ED Review of Systems ROS: Stated complaint: HEMIPELGIC MIGRANE Other details as noted in HPI Comment: All other systems reviewed and negative Constitutional: denies: chills, fever Respiratory: denies: cough Cardiovascular: denies: chest pain, palpitations Gastrointestinal: denies: abdominal pain, nausea Musculoskeletal: denies: back pain Neurological: headache. 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 tonsils - Social History Smoking Status: Never Smoker Substance Use Type: None - Medications Home Medications: Home Medications Medication Instructions Recorded Confirmed Last Taken Type Zolpidem Tartrate [Ambien CR] 12.5 mg PO QHS 05/06/16 07/15/18 07/13/18 22:00 History Aspirin 325 mg PO QDAY #30 tablet 06/30/18 07/15/18 07/02/18 Rx AtorvaSTATin [Lipitor] 40 mg PO QHS #30 tablet 06/30/18 07/15/18 07/13/18 22:00 Rx SUMAtriptan succinate [Imitrex] 0.5 ml SUB-Q BID PRN 07/02/18 07/15/18 07/02/18 History Diazepam [Valium] 1 tab PO BID PRN #6 tablet 09/01/18 Unknown Rx methylPREDNISolone [Medrol] 4 mg PO DAILY 6 Days #1 tab.ds.pk 09/01/18 Unknown Rx Ondansetron [Zofran ODT TAB] 4 mg PO Q8HR PRN #20 tab.rapdis 09/16/18 Unknown Rx Butalb/Acetaminophen/Caffeine 1 cap PO Q6HR PRN #12 cap 01/02/19 Unknown Rx [Fioricet 50-300-40 mg CAP] Butalb/Acetamin/Caff 50-325-40 1 tab PO Q6HR PRN #14 tab 02/07/19 Unknown Rx [Fioricet 50-325-40] Promethazine [Phenergan] 25 mg PO Q6HR PRN #24 tab 02/07/19 Unknown Rx ED Physical Exam - General Limitations: No Limitations General appearance: alert, in no apparent distress - Head Head exam: Present: atraumatic, normocephalic - Eye Eye exam: Present: normal appearance, PERRL - ENT ENT exam: Present: normal exam, normal orophraynx, mucous membranes moist - Neck Neck exam: Present: normal inspection, full ROM. Absent: tenderness, me ningismus, lymphadenopathy, thyromegaly - Respiratory Respiratory exam: Present: normal lung sounds bilaterally - Cardiovascular Cardiovascular Exam: Present: regular rate, normal rhythm, normal heart sounds - GI/Abdominal GI/Abdominal exam: Present: soft, normal bowel sounds. Absent: distended, tenderness, guarding, rebound, rigid - Extremities Exam Extremities exam: Present: normal inspection, full ROM, normal capillary refill - Back Exam Back exam: Present: normal inspection, full ROM - Neurological Exam Neurological exam: Present: alert, oriented X3, CN II-XII intact, normal gait, reflexes normal - Psychiatric Psychiatric exam: Present: normal mood - Skin Skin exam: Present: warm, intact, normal color ED Course Vital Signs 02/20/19 13:51 Temperature 98.4 F Pulse Rate 123 H Respiratory 16 Rate Blood Pressure 111/69 O2 Sat by Pulse 97 Oximetry ED Medical Decision Making - Medical Decision Making Patient is a 43 years old female with history of migraine and multiple ER visits and multiple narcotics prescription. Patient is familiar to me since I saw several times before. Patient is specifically asking for Dilaudid and Benadryl, stating that this is what her neurologist want her to get in the ER. Patient stated that her symptom is similar to her previous headache. She denied any weakness numbness or tingling sensation. Patient given Decadron and Compazine. No narcotics given or prescribed. I discuss with the patient in the presence of her daughter are narcotics addiction and to follow-up with the pain clinic but patient denied. Patient advised to follow-up with her primary care physician in the next 2-3 days. Critical care attestation.: If time is entered above; I have spent that time in minutes in the direct care of this critically ill patient, excluding procedure time. ED Disposition Clinical Impression: Migraine Disposition: DC-01 TO HOME OR SELFCARE Is pt being admited?: No Condition: Stable Instructions: Migraine Headache (ED) Referrals: VALERIA HARRELL MD [Primary Care Provider] - 3-5 Days
[2019-02-20] MEDS ORDERED: TORADOL IM ONE (16:14)
[2019-02-20] MEDS ORDERED: COMPAZINE IM ONE (16:27)
[2019-02-20 16:31] VITALS: BP 115/68
== END 2019-02-20 16:29 | disposition home or self-care (01) ==
LOC: ED 13:44
DX: G43.909 Migraine, unspecified, not intractable, without status migrainosus (principal); Z86.73 Personal history of transient ischemic attack (TIA), and cerebral infarction without residual deficits; Z87.442 Personal history of urinary calculi
CPT/HCPCS: 96372; 99282; J0780; J1100; J1885

== ENCOUNTER 2019-05-25 18:14 | Emergency (ER) | payer BC, MEDICARE ==
--- NOTE | 2019-05-25 18:52 | Event Note ---
ED Screening Note ED Screening Note: states two weeks ago increased her lamictal from 50 mg to 100 mg she states she thinks she is having an "allergic reaction" states she has a diffuse rash itching This initial assessment/diagnostic orders/clinical plan/treatment(s) is/are subject to change based on patients health status, clinical progression and re- assessment by fellow clinical providers in the ED. Further treatment and workup at subsequent clinical providers discretion. Patient/guardian urged not to elope from the ED as their condition may be serious if not clinically assessed and managed.
[2019-05-25] MEDS ORDERED: dexAMETHasone 20 MG/5 ML VIAL IM ONE (19:16)
[2019-05-25] MEDS ORDERED: diphenhydrAMINE 50 MG/ML VIAL IM ONE (19:16)
--- NOTE | 2019-05-25 19:44 | Emergency Department Report ---
ED General Adult HPI - General Chief complaint: Allergic Reaction Stated complaint: ALLERGIC REACTION Time Seen by Provider: 05/25/19 18:50 Source: patient Mode of arrival: Ambulatory Limitations: No Limitations - History of Present Illness Initial comments: Patient is a 43-year-old female who is presenting with a rash all over her body. Patient states that this started approximately 2 weeks ago. Patient states this could be associated with 2 different things. Patient is on Lamictal and Lamictal dose was increased approximately 2 weeks ago. Patient also was cutting some hedges and this could be a factor as well. Patient states she has itching all over and she has a papular rash on her hands and feet but not on the palms or soles, elbows her arms legs back and torso. Patient denies any shortness of breath or difficulty swallowing. - Related Data Home Medications Medication Instructions Recorded Confirmed Last Taken Zolpidem Tartrate [Ambien CR] 12.5 mg PO QHS 05/06/16 07/15/18 07/13/18 22:00 SUMAtriptan succinate [Imitrex] 0.5 ml SUB-Q BID PRN 07/02/18 07/15/18 07/02/18 Previous Rx's Medication Instructions Recorded Last Taken Type Aspirin 325 mg PO QDAY #30 tablet 06/30/18 07/02/18 Rx AtorvaSTATin [Lipitor] 40 mg PO QHS #30 tablet 06/30/18 07/13/18 22:00 Rx Diazepam [Valium] 1 tab PO BID PRN #6 tablet 09/01/18 Unknown Rx methylPREDNISolone [Medrol] 4 mg PO DAILY 6 Days #1 tab.ds.pk 09/01/18 Unknown Rx Ondansetron [Zofran ODT TAB] 4 mg PO Q8HR PRN #20 tab.rapdis 09/16/18 Unknown Rx Butalb/Acetaminophen/Caffeine 1 cap PO Q6HR PRN #12 cap 01/02/19 Unknown Rx [Fioricet 50-300-40 mg CAP] Butalb/Acetamin/Caff 50-325-40 1 tab PO Q6HR PRN #14 tab 02/07/19 Unknown Rx [Fioricet 50-325-40] Promethazine [Phenergan] 25 mg PO Q6HR PRN #24 tab 02/07/19 Unknown Rx Permethrin 5% [Acticin 5% CREAM] 1 applicatio TP ONCE #1 tube 05/25/19 Unknown Rx Triamcinolone Acetonide 1 applicatio TP BID #1 bottle 05/25/19 Unknown Rx [Triamcinolone 0.1% LOTION] diphenhydrAMINE [Benadryl CAP] 25 mg PO Q6HR PRN #20 capsule 05/25/19 Unknown Rx predniSONE [Deltasone] 20 mg PO QDAY #5 tab 05/25/19 Unknown Rx Allergies Allergy/AdvReac Type Severity Reaction Status Date / Time levetiracetam [From Keppra] Allergy Intermediate Vomiting Verified 02/07/19 13:45 divalproex sodium Allergy Unknown Verified 02/07/19 13:45 [From Depakote] doxycycline Allergy Vomiting Verified 02/07/19 13:45 metoclopramide HCl Allergy Unknown Verified 02/07/19 13:45 [From Reglan] Penicillins Allergy Unknown Verified 02/07/19 13:45 sumatriptan [From Imitrex] Allergy Unknown Verified 02/07/19 13:45 ED Review of Systems ROS: Stated complaint: ALLERGIC REACTION Other details as noted in HPI Comment: All other systems reviewed and negative ED Past Medical Hx - Past Medical History Previous Medical History?: Yes Hx CVA: Yes (2014 Slight left sided deficits.) Hx Heart Attack/AMI: No Hx Congestive Heart Failure: No Hx Diabetes: No Hx Headaches / Migraines: Yes ( migraine headaches) Hx Kidney Stones: Yes Hx Asthma: No Hx COPD: No Additional medical history: 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 tonsils - Social History Smoking Status: Never Smoker Substance Use Type: None - Medications Home Medications: Home Medications Medication Instructions Recorded Confirmed Last Taken Type Zolpidem Tartrate [Ambien CR] 12.5 mg PO QHS 05/06/16 07/15/18 07/13/18 22:00 History Aspirin 325 mg PO QDAY #30 tablet 06/30/18 07/15/18 07/02/18 Rx AtorvaSTATin [Lipitor] 40 mg PO QHS #30 tablet 06/30/18 07/15/18 07/13/18 22:00 Rx SUMAtriptan succinate [Imitrex] 0.5 ml SUB-Q BID PRN 07/02/18 07/15/18 07/02/18 History Diazepam [Valium] 1 tab PO BID PRN #6 tablet 09/01/18 Unknown Rx methylPREDNISolone [Medrol] 4 mg PO DAILY 6 Days #1 tab.ds.pk 09/01/18 Unknown Rx Ondansetron [Zofran ODT TAB] 4 mg PO Q8HR PRN #20 tab.rapdis 09/16/18 Unknown Rx Butalb/Acetaminophen/Caffeine 1 cap PO Q6HR PRN #12 cap 01/02/19 Unknown Rx [Fioricet 50-300-40 mg CAP] Butalb/Acetamin/Caff 50-325-40 1 tab PO Q6HR PRN #14 tab 02/07/19 Unknown Rx [Fioricet 50-325-40] Promethazine [Phenergan] 25 mg PO Q6HR PRN #24 tab 02/07/19 Unknown Rx Permethrin 5% [Acticin 5% CREAM] 1 applicatio TP ONCE #1 tube 05/25/19 Unknown Rx Triamcinolone Acetonide 1 applicatio TP BID #1 bottle 05/25/19 Unknown Rx [Triamcinolone 0.1% LOTION] diphenhydrAMINE [Benadryl CAP] 25 mg PO Q6HR PRN #20 capsule 05/25/19 Unknown Rx predniSONE [Deltasone] 20 mg PO QDAY #5 tab 05/25/19 Unknown Rx ED Physical Exam - General Limitations: No Limitations General appearance: alert, in no apparent distress - Head Head exam: Present: atraumatic, normocephalic - Eye Eye exam: Present: normal appearance - ENT ENT exam: Present: mucous membranes moist - Neck Neck exam: Present: normal inspection - Respiratory Respiratory exam: Present: normal lung sounds bilaterally. Absent: respiratory distress, wheezes, rales - Cardiovascular Cardiovascular Exam: Present: regular rate, normal rhythm. Absent: systolic murmur, diastolic murmur, rubs, gallop - GI/Abdominal GI/Abdominal exam: Present: soft, normal bowel sounds - Extremities Exam Extremities exam: Present: normal inspection - Back Exam Back exam: Present: normal inspection - Neurological Exam Neurological exam: Present: alert, oriented X3 - Psychiatric Psychiatric exam: Present: normal affect, normal mood - Skin Skin exam: Present: warm, dry, intact, normal color. Absent: rash - Expanded Skin Exam Expanded Type of lesion: Present: rash Distribution of rash: generalized Description of rash: Present: erythematous, papular (rashes present in the webspaces.). Absent: tenderness ED Medical Decision Making - Medical Decision Making Patient's rash is not consistent with a drug or food rash. Patient is yellow on her house who has a rash. Patient's rash is morphology was very consistent with what is typically seen with scabies however no one else in her home including people who do sleep in herself. Penicillin the same furniture have the rash. Patient will be placed on Benadryl steroid therapy. Femoral) will be given prophylactically. Patient also will be referred to dermatology. Critical care attestation.: If time is entered above; I have spent that time in minutes in the direct care of this critically ill patient, excluding procedure time. ED Disposition Clinical Impression: Papular rash, generalized Disposition: DC-01 TO HOME OR SELFCARE Is pt being admited?: No Does the pt Need Aspirin: No Condition: Stable Instructions: Acute Rash (ED) Referrals: MICHAEL VILLANUEVA MD [Staff Physician] - 3-5 Days Time of Disposition: 19:46
== END 2019-05-25 20:00 | disposition home or self-care (01) ==
LOC: ED 18:14
DX: L30.9 Dermatitis, unspecified (principal); G43.909 Migraine, unspecified, not intractable, without status migrainosus; Z79.899 Other long term (current) drug therapy; Z79.82 Long term (current) use of aspirin; Z88.5 Allergy status to narcotic agent; Z88.1 Allergy status to other antibiotic agents; Z87.442 Personal history of urinary calculi; Z90.710 Acquired absence of both cervix and uterus
CPT/HCPCS: 96372; 99282; J1100; J1200

== ENCOUNTER 2019-06-06 06:59 | Emergency (ER) | payer BC, MEDICARE ==
--- NOTE | 2019-06-06 08:48 | Emergency Department Report ---
HPI - General Chief Complaint: Allergic Reaction Time Seen by Provider: 06/06/19 08:34 - HPI HPI: 43-year-old female patient with history of migraine and seizures complains of allergic reaction to Lamictal for the past 2 months. Patient seen here for the same complaint 05/18. She states she was also seen at [facility] a few days ago for the same. She complains of a generalized rash that is itchy and painful. She states the rash is improving. She denies any fever/chills/sweats or trouble breathing or trouble swallowing. She states she has been on Lamictal for 5 years, but the dose was increased 2 months ago and that's when her rash began. She states she stopped taking the Lamictal on Sunday. She states she is here today for pain medication for the rash and a migraine that started this morning. Patient states she cannot longer takes sumatriptan. 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 tonsils - Social History Smoking Status: Never Smoker Substance Use Type: None - Medications Home Medications: Home Medications Medication Instructions Recorded Confirmed Last Taken Type Zolpidem Tartrate [Ambien CR] 12.5 mg PO QHS 05/06/16 07/15/18 07/13/18 22:00 History Aspirin 325 mg PO QDAY #30 tablet 06/30/18 07/15/18 07/02/18 Rx AtorvaSTATin [Lipitor] 40 mg PO QHS #30 tablet 06/30/18 07/15/18 07/13/18 22:00 Rx SUMAtriptan succinate [Imitrex] 0.5 ml SUB-Q BID PRN 07/02/18 07/15/18 07/02/18 History Diazepam [Valium] 1 tab PO BID PRN #6 tablet 09/01/18 Unknown Rx methylPREDNISolone [Medrol] 4 mg PO DAILY 6 Days #1 tab.ds.pk 09/01/18 Unknown Rx Ondansetron [Zofran ODT TAB] 4 mg PO Q8HR PRN #20 tab.rapdis 09/16/18 Unknown Rx Butalb/Acetaminophen/Caffeine 1 cap PO Q6HR PRN #12 cap 01/02/19 Unknown Rx [Fioricet 50-300-40 mg CAP] Butalb/Acetamin/Caff 50-325-40 1 tab PO Q6HR PRN #14 tab 02/07/19 Unknown Rx [Fioricet 50-325-40] Promethazine [Phenergan] 25 mg PO Q6HR PRN #24 tab 02/07/19 Unknown Rx Permethrin 5% [Acticin 5% CREAM] 1 applicatio TP ONCE #1 tube 05/25/19 Unknown Rx Triamcinolone Acetonide 1 applicatio TP BID #1 bottle 05/25/19 Unknown Rx [Triamcinolone 0.1% LOTION] diphenhydrAMINE [Benadryl CAP] 25 mg PO Q6HR PRN #20 capsule 05/25/19 Unknown Rx predniSONE [Deltasone] 20 mg PO QDAY #5 tab 05/25/19 Unknown Rx ED Review of Systems ROS: Stated complaint: ALLERGIC REACTION Other details as noted in HPI Constitutional: denies: chills, fever Eyes: other (photophobia ). denies: eye pain, vision change Respiratory: denies: cough, shortness of breath, wheezing Cardiovascular: denies: chest pain, palpitations Gastrointestinal: denies: abdominal pain, nausea, vomiting Skin: rash, pruritus. denies: lesions, change in color Neurological: headache. denies: weakness, numbness, paresthesias, confusion, abnormal gait, vertigo Physical Exam - Physical Exam Vital Signs: Vital Signs 06/06/19 07:28 Temperature 97.7 F Pulse Rate 94 H Respiratory 18 Rate Blood Pressure 104/61 O2 Sat by Pulse 95 Oximetry Physical Exam: - General Limitations: No Limitations General appearance: alert, in no apparent distress - Expanded Head Exam Head exam: atraumatic - Eye Eye exam: Present: normal appearance, PERRL, EOMI - Neck Neck exam: Present: normal inspection - Respiratory Respiratory exam: Present: normal lung sounds bilaterally. Absent: respiratory distress - Cardiovascular Cardiovascular Exam: Present: regular rate, normal rhythm - GI/Abdominal GI/Abdominal exam: Present: soft. Absent: tenderness - Rectal Rectal exam: Present: deferred - Extremities Exam Extremities exam: Present: full ROM - Neurological Exam Neurological exam: Present: alert, oriented X3, CN II-XII intact, normal gait. Absent: motor sensory deficit - Psychiatric Psychiatric exam: Present: normal affect, normal mood - Skin Skin exam: Present: warm, dry, normal color. Small scattered, very mildly erythemic papules noted on arms bilaterally. No tenderness to palpation of rash ED Course Vital Signs 06/06/19 07:28 Temperature 97.7 F Pulse Rate 94 H Respiratory 18 Rate Blood Pressure 104/61 O2 Sat by Pulse 95 Oximetry ED Medical Decision Making - Medical Decision Making Patient here for a rash that she presumes is due to her Lamictal and a migraine starting today. Rash has been ongoing for 2 months. Patient states she stopped taking her Lamictal on Sunday. She states her rash is improving, but complains of the rash continuing to be painful. She states steroids both oral and topical are not helping. He shouldn't informed to follow-up with her neurologist concerning her possible allergic reaction to Lamictal. Patient given a migraine cocktail and states pain has resolved. Critical care attestation.: If time is entered above; I have spent that time in minutes in the direct care of this critically ill patient, excluding procedure time. ED Disposition Clinical Impression: Rash Migraine Qualifiers: Migraine type: other Status migrainosus presence: without status migrainosus Intractability: not intractable Qualified Code(s): G43.809 - Other migraine, not intractable, without status migrainosus Disposition: - TO HOME OR SELFCARE Is pt being admited?: No Condition: Stable Instructions: Urticaria (ED) Additional Instructions: Is follow-up with neurologist concerning your rash and migraines. Referrals: PRIMARY CARE, [Primary Care Provider] - 3-5 Days
[2019-06-06] MEDS ORDERED: PROCHLORPERAZINE EDISYLATE 10 MG/2 ML VIAL IV NR (09:08)
[2019-06-06] MEDS ORDERED: HYDROmorphone 1 MG/1 ML INJ IV ONE (09:08)
[2019-06-06] MEDS ORDERED: dexAMETHasone 20 MG/5 ML VIAL IV ONE (09:10)
[2019-06-06 10:32] VITALS: BP 100/50
== END 2019-06-06 10:53 | disposition home or self-care (01) ==
LOC: ED 06:59
DX: R21 Rash and other nonspecific skin eruption (principal); G43.909 Migraine, unspecified, not intractable, without status migrainosus; Z86.73 Personal history of transient ischemic attack (TIA), and cerebral infarction without residual deficits; Z87.442 Personal history of urinary calculi; Z98.890 Other specified postprocedural states; Z79.899 Other long term (current) drug therapy; Z90.710 Acquired absence of both cervix and uterus; Z88.1 Allergy status to other antibiotic agents; Z88.8 Allergy status to other drugs, medicaments and biological substances
CPT/HCPCS: 96374; 96375; 99283; J0780; J1100; J1170

== ENCOUNTER 2019-08-07 13:11 | Observation (INO) | payer BC, MEDICARE ==
--- NOTE | 2019-08-07 13:21 | Event Note ---
ED Screening Note ED Screening Note: R SIDED WEAKNESS LAST KNOWN TO BE N BY 0700 PT HAS HEMIPLEGIC MIGRAINES THAT CAUSE HER L SIDE TO BE WEAKNESS SHE HAS ALSO HAD CVA IN THE PAST TODAY SHE HAS R SIDE WEAKNESS HER VOICE IS SLURRED- NORMALLY SHE DOES NOT SLUR HER WORDS POS R PRONATOR DRIFT CODE STROKE CALLED This initial assessment/diagnostic orders/clinical plan/treatment(s) is/are subject to change based on patients health status, clinical progression and re- assessment by fellow clinical providers in the ED. Further treatment and workup at subsequent clinical providers discretion. Patient/guardian urged not to elope from the ED as their condition may be serious if not clinically assessed and managed. Initial orders include:
[2019-08-07 13:31] LABS: Hematocrit 42.2 % (30.3-42.9); Hemoglobin 14.4 gm/dl (10.1-14.3); Mean Corpuscular HGB Conc 34 % (30-34); Mean Corpuscular Volume 91 fl (79-97); Platelet Count 379 K/mm3 (140-440); Red Blood Count 4.63 M/mm3 (3.65-5.03); Red Cell Distribution Width 14.1 % (13.2-15.2)
[2019-08-07 13:48] LABS: INR 1.03 (0.87-1.13)
[2019-08-07 13:49] LABS: Partial Thromboplastin Time 30.1 Sec. (24.2-36.6); Thrombin Time 16.3 Sec. (15.1-19.6)
[2019-08-07 13:51] LABS: Alanine Aminotransferase 8 units/L (7-56); Albumin 4.6 g/dL (3.9-5); BUN/Creatinine Ratio 10; Blood Urea Nitrogen 8 mg/dL (7-17); Calcium 9.6 mg/dL (8.4-10.2); Hemolysis Index 6
[2019-08-07 14:00] LABS: Creatine Kinase MB < 1.0 ng/mL (0.0-4.0)
[2019-08-07 14:08] LABS: Basophils % (Manual) 0 % (0.0-1.8); Eosinophils % (Manual) 0 % (0.0-4.3); Platelet Estimate Consistent w Auto; RBC Morphology Normal; Total Cells Counted 100
--- NOTE | 2019-08-07 14:24 | Emergency Department Report ---
ED General Adult HPI - General Chief complaint: Neuro Symptoms/Deficit Stated complaint: NEURO ISSUES Time Seen by Provider: 08/07/19 13:18 Source: patient Mode of arrival: Wheelchair Limitations: Physical Limitation - History of Present Illness Initial comments: She presents to the emergency department with a chief complaint slurred speech that started at approximately 10:30 AM this morning. Patient has a history of Hemiplegic migraines as well as a CVA 6 years ago. Patient also had a neurological event 1 year ago and received TPA. Other states about 8:13 AM this morning he got a call from a size stating his was having a seizure. Patient has a history of seizures was initially on the mental bus stopped in May 2019 secondary to side effects. Patient states that she has headaches daily and takes Urised Imitrex for them. Patient states she currently has a headache which is no worse than her normal headache episodes. -: Sudden Severity scale (0 -10): 0 Improves with: none Worsens with: none Associated Symptoms: denies other symptoms Treatments Prior to Arrival: none - Related Data Home Medications Medication Instructions Recorded Confirmed Last Taken Zolpidem Tartrate [Ambien CR] 12.5 mg PO QHS 05/06/16 07/15/18 07/13/18 22:00 SUMAtriptan succinate [Imitrex] 0.5 ml SUB-Q BID PRN 07/02/18 07/15/18 07/02/18 Previous Rx's Medication Instructions Recorded Last Taken Type Aspirin 325 mg PO QDAY #30 tablet 06/30/18 07/02/18 Rx AtorvaSTATin [Lipitor] 40 mg PO QHS #30 tablet 06/30/18 07/13/18 22:00 Rx Diazepam [Valium] 1 tab PO BID PRN #6 tablet 09/01/18 Unknown Rx methylPREDNISolone [Medrol] 4 mg PO DAILY 6 Days #1 tab.ds.pk 09/01/18 Unknown Rx Ondansetron [Zofran ODT TAB] 4 mg PO Q8HR PRN #20 tab.rapdis 09/16/18 Unknown Rx Butalb/Acetaminophen/Caffeine 1 cap PO Q6HR PRN #12 cap 01/02/19 Unknown Rx [Fioricet 50-300-40 mg CAP] Butalb/Acetamin/Caff 50-325-40 1 tab PO Q6HR PRN #14 tab 02/07/19 Unknown Rx [Fioricet 50-325-40] Promethazine [Phenergan] 25 mg PO Q6HR PRN #24 tab 02/07/19 Unknown Rx Permethrin 5% [Acticin 5% CREAM] 1 applicatio TP ONCE #1 tube 05/25/19 Unknown Rx Triamcinolone Acetonide 1 applicatio TP BID #1 bottle 05/25/19 Unknown Rx [Triamcinolone 0.1% LOTION] diphenhydrAMINE [Benadryl CAP] 25 mg PO Q6HR PRN #20 capsule 05/25/19 Unknown Rx predniSONE [Deltasone] 20 mg PO QDAY #5 tab 05/25/19 Unknown Rx Allergies Allergy/AdvReac Type Severity Reaction Status Date / Time levetiracetam [From Keppra] Allergy Intermediate Vomiting Verified 06/06/19 07:28 divalproex sodium Allergy Unknown Verified 06/06/19 07:28 [From Depakote] doxycycline Allergy Vomiting Verified 06/06/19 07:28 metoclopramide HCl Allergy Unknown Verified 06/06/19 07:28 [From Reglan] Penicillins Allergy Unknown Verified 06/06/19 07:28 sumatriptan [From Imitrex] Allergy Unknown Verified 06/06/19 07:28 ED Review of Systems ROS: Stated complaint: NEURO ISSUES Other details as noted in HPI Constitutional: denies: chills, fever Eyes: denies: eye pain, eye discharge, vision change ENT: denies: ear pain, throat pain Respiratory: denies: cough, shortness of breath, wheezing Cardiovascular: denies: chest pain, palpitations Endocrine: no symptoms reported Gastrointestinal: denies: abdominal pain, nausea, diarrhea Genitourinary: denies: urgency, dysuria, discharge Musculoskeletal: denies: back pain, joint swelling, arthralgia Skin: denies: rash, lesions Neurological: other (slurred speech). 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 tonsils - Social History Smoking Status: Never Smoker Substance Use Type: None - Medications Home Medications: Home Medications Medication Instructions Recorded Confirmed Last Taken Type Zolpidem Tartrate [Ambien CR] 12.5 mg PO QHS 05/06/16 07/15/18 07/13/18 22:00 History Aspirin 325 mg PO QDAY #30 tablet 06/30/18 07/15/18 07/02/18 Rx AtorvaSTATin [Lipitor] 40 mg PO QHS #30 tablet 06/30/18 07/15/18 07/13/18 22:00 Rx SUMAtriptan succinate [Imitrex] 0.5 ml SUB-Q BID PRN 07/02/18 07/15/18 07/02/18 History Diazepam [Valium] 1 tab PO BID PRN #6 tablet 09/01/18 Unknown Rx methylPREDNISolone [Medrol] 4 mg PO DAILY 6 Days #1 tab.ds.pk 09/01/18 Unknown Rx Ondansetron [Zofran ODT TAB] 4 mg PO Q8HR PRN #20 tab.rapdis 09/16/18 Unknown Rx Butalb/Acetaminophen/Caffeine 1 cap PO Q6HR PRN #12 cap 01/02/19 Unknown Rx [Fioricet 50-300-40 mg CAP] Butalb/Acetamin/Caff 50-325-40 1 tab PO Q6HR PRN #14 tab 02/07/19 Unknown Rx [Fioricet 50-325-40] Promethazine [Phenergan] 25 mg PO Q6HR PRN #24 tab 02/07/19 Unknown Rx Permethrin 5% [Acticin 5% CREAM] 1 applicatio TP ONCE #1 tube 05/25/19 Unknown Rx Triamcinolone Acetonide 1 applicatio TP BID #1 bottle 05/25/19 Unknown Rx [Triamcinolone 0.1% LOTION] diphenhydrAMINE [Benadryl CAP] 25 mg PO Q6HR PRN #20 capsule 05/25/19 Unknown Rx predniSONE [Deltasone] 20 mg PO QDAY #5 tab 05/25/19 Unknown Rx ED Physical Exam - General Limitations: Physical Limitation General appearance: alert, in no apparent distress - Head Head exam: Present: atraumatic, normocephalic - Eye Eye exam: Present: normal appearance, PERRL, EOMI - ENT ENT exam: Present: mucous membranes moist - Neck Neck exam: Present: normal inspection - Respiratory Respiratory exam: Present: normal lung sounds bilaterally. Absent: respiratory distress - Cardiovascular Cardiovascular Exam: Present: regular rate, normal rhythm. Absent: systolic murmur, diastolic murmur, rubs, gallop - GI/Abdominal GI/Abdominal exam: Present: soft, normal bowel sounds - Extremities Exam Extremities exam: Present: normal inspection - Back Exam Back exam: Present: normal inspection - Neurological Exam Neurological exam: Present: alert, oriented X3, CN II-XII intact. Absent: motor sensory deficit - Psychiatric Psychiatric exam: Present: normal affect, normal mood - Skin Skin exam: Present: warm, dry, intact, normal color. Absent: rash ED Medical Decision Making - Lab Data Result diagrams: 08/07/19 13:22 08/07/19 13:22 Lab Results 08/07/19 08/07/19 08/07/19 Range/Units 13:22 13:22 13:22 WBC 5.6 (4.5-11.0) K/mm3 RBC 4.63 (3.65-5.03) M/mm3 Hgb 14.4 H (10.1-14.3) gm/dl Hct 42.2 (30.3-42.9) % MCV 91 (79-97) fl MCH 31 (28-32) pg MCHC 34 (30-34) % RDW 14.1 (13.2-15.2) % Plt Count 379 (140-440) K/mm3 Lymph % (Auto) Pneumatic Hoist Operator Add Manual Diff Complete Total Counted 100 Seg Neutrophils % Pneumatic Hoist Operator Seg Neuts % (Manual) 19.0 L (40.0-70.0) % Band Neutrophils % 0 % Lymphocytes % (Manual) 77.0 H (13.4-35.0) % Reactive Lymphs % (Man) 0 % Monocytes % (Manual) 4.0 (0.0-7.3) % Eosinophils % (Manual) 0 (0.0-4.3) % Basophils % (Manual) 0 (0.0-1.8) % Metamyelocytes % 0 % Myelocytes % 0 % Promyelocytes % 0 % Blast Cells % 0 % Nucleated RBC % Not Reportable Seg Neutrophils # Man 1.1 L (1.8-7.7) K/mm3 Band Neutrophils # 0.0 K/mm3 Lymphocytes # (Manual) 4.3 (1.2-5.4) K/mm3 Abs React Lymphs (Man) 0.0 K/mm3 Monocytes # (Manual) 0.2 (0.0-0.8) K/mm3 Eosinophils # (Manual) 0.0 (0.0-0.4) K/mm3 Basophils # (Manual) 0.0 (0.0-0.1) K/mm3 Metamyelocytes # 0.0 K/mm3 Myelocytes # 0.0 K/mm3 Promyelocytes # 0.0 K/mm3 Blast Cells # 0.0 K/mm3 WBC Morphology Not Reportable Hypersegmented Neuts Not Reportable Hyposegmented Neuts Not Reportable Hypogranular Neuts Not Reportable Smudge Cells Not Reportable Toxic Granulation Not Reportable Toxic Vacuolation Not Reportable Dohle Bodies Not Reportable Pelger-Huet Anomaly Not Reportable Aureliano Rods Not Reportable Platelet Estimate Consistent w auto Clumped Platelets Not Reportable Plt Clumps, EDTA Not Reportable Large Platelets Not Reportable Giant Platelets Not Reportable Platelet Satelliting Not Reportable Plt Morphology Comment Not Reportable RBC Morphology Normal Dimorphic RBCs Not Reportable Polychromasia Not Reportable Hypochromasia Not Reportable Poikilocytosis Not Reportable Anisocytosis Not Reportable Microcytosis Not Reportable Macrocytosis Not Reportable Spherocytes Not Reportable Pappenheimer Bodies Not Reportable Sickle Cells Not Reportable Target Cells Not Reportable Tear Drop Cells Not Reportable Ovalocytes Not Reportable Helmet Cells Not Reportable Damian-Hays Bodies Not Reportable [place] Rings Not Reportable Sullivan Cells Not Reportable Bite Cells Not Reportable Crenated Cell Not Reportable Elliptocytes Not Reportable Acanthocytes (Spur) Not Reportable Rouleaux Not Reportable Hemoglobin C Crystals Not Reportable Schistocytes Not Reportable Malaria parasites Not Reportable Sherman Bodies Not Reportable Hem Pathologist Commnt No PT 13.6 (12.2-14.9) Sec. INR 1.03 (0.87-1.13) APTT 30.1 (24.2-36.6) Sec. Thrombin Time 16.3 (15.1-19.6) Sec. Sodium 143 (137-145) mmol/L Potassium 3.4 L (3.6-5.0) mmol/L Chloride 105.5 (98-107) mmol/L Carbon Dioxide 22 (22-30) mmol/L Anion Gap 19 mmol/L BUN 8 (7-17) mg/dL Creatinine 0.8 (0.7-1.2) mg/dL Estimated GFR > 60 ml/min BUN/Creatinine Ratio 10 % Glucose 95 (65-100) mg/dL POC Glucose (70-105) Calcium 9.6 (8.4-10.2) mg/dL Total Bilirubin 0.30 (0.1-1.2) mg/dL AST 14 (5-40) units/L ALT 8 (7-56) units/L Alkaline Phosphatase 106 (35-129) units/L Total Creatine Kinase 33 (30-135) units/L CK-MB (CK-2) < 1.0 (0.0-4.0) ng/mL CK-MB (CK-2) Rel Index 3.0 (0-4) Troponin T < 0.010 (0.00-0.029) ng/mL Total Protein 7.6 (6.3-8.2) g/dL Albumin 4.6 (3.9-5) g/dL Albumin/Globulin Ratio 1.5 % HCG, Qual (Negative) 08/07/19 08/07/19 Range/Units 13:22 13:30 WBC (4.5-11.0) K/mm3 RBC (3.65-5.03) M/mm3 Hgb (10.1-14.3) gm/dl Hct (30.3-42.9) % MCV (79-97) fl MCH (28-32) pg MCHC (30-34) % RDW (13.2-15.2) % Plt Count (140-440) K/mm3 Lymph % (Auto) Add Manual Diff Total Counted Seg Neutrophils % Seg Neuts % (Manual) (40.0-70.0) % Band Neutrophils % % Lymphocytes % (Manual) (13.4-35.0) % Reactive Lymphs % (Man) % Monocytes % (Manual) (0.0-7.3) % Eosinophils % (Manual) (0.0-4.3) % Basophils % (Manual) (0.0-1.8) % Metamyelocytes % % Myelocytes % % Promyelocytes % % Blast Cells % % Nucleated RBC % Seg Neutrophils # Man (1.8-7.7) K/mm3 Band Neutrophils # K/mm3 Lymphocytes # (Manual) (1.2-5.4) K/mm3 Abs React Lymphs (Man) K/mm3 Monocytes # (Manual) (0.0-0.8) K/mm3 Eosinophils # (Manual) (0.0-0.4) K/mm3 Basophils # (Manual) (0.0-0.1) K/mm3 Metamyelocytes # K/mm3 Myelocytes # K/mm3 Promyelocytes # K/mm3 Blast Cells # K/mm3 WBC Morphology Hypersegmented Neuts Hyposegmented Neuts Hypogranular Neuts Smudge Cells Toxic Granulation Toxic Vacuolation Dohle Bodies Pelger-Huet Anomaly Aureliano Rods Platelet Estimate Clumped Platelets Plt Clumps, EDTA Large Platelets Giant Platelets Platelet Satelliting Plt Morphology Comment RBC Morphology Dimorphic RBCs Polychromasia Hypochromasia Poikilocytosis Anisocytosis Microcytosis Macrocytosis Spherocytes Pappenheimer Bodies Sickle Cells Target Cells Tear Drop Cells Ovalocytes Helmet Cells Damian-Hays Bodies [place] Rings Dilan Cells Bite Cells Crenated Cell Elliptocytes Acanthocytes (Spur) Rouleaux Hemoglobin C Crystals Schistocytes Malaria parasites Sherman Bodies Hem Pathologist Commnt PT (12.2-14.9) Sec. INR (0.87-1.13) APTT (24.2-36.6) Sec. Thrombin Time (15.1-19.6) Sec. Sodium (137-145) mmol/L Potassium (3.6-5.0) mmol/L Chloride (98-107) mmol/L Carbon Dioxide (22-30) mmol/L Anion Gap mmol/L BUN (7-17) mg/dL Creatinine (0.7-1.2) mg/dL Estimated GFR ml/min BUN/Creatinine Ratio % Glucose (65-100) mg/dL POC Glucose 87 (70-105) Calcium (8.4-10.2) mg/dL Total Bilirubin (0.1-1.2) mg/dL AST (5-40) units/L ALT (7-56) units/L Alkaline Phosphatase (35-129) units/L Total Creatine Kinase (30-135) units/L CK-MB (CK-2) (0.0-4.0) ng/mL CK-MB (CK-2) Rel Index (0-4) Troponin T (0.00-0.029) ng/mL Total Protein (6.3-8.2) g/dL Albumin (3.9-5) g/dL Albumin/Globulin Ratio % HCG, Qual Negative (Negative) - Radiology Data Radiology results: report reviewed - Medical Decision Making Discussed results with patient Neurology contacted the ED and asked for CTA Head/Neck and admission Neurology feels that the sx are likely secondary to Migraines Critical care attestation.: If time is entered above; I have spent that time in minutes in the direct care of this critically ill patient, excluding procedure time. ED Disposition Clinical Impression: Aphasia, Migraine Disposition: OP ADMIT IP TO THIS HOSP Is pt being admited?: Yes Does the pt Need Aspirin: Yes Condition: Fair Referrals: PRIMARY CARE, [Primary Care Provider] - 3-5 Days - Assessment Assessment Interval: Baseline - Level of Consciousness 1a. Level of Consciousness: alert/keenly responsive - LOC Questions 1b. LOC Questions: answers both correctly - LOC Command 1c. LOC Commands: performs tasks correctly - Best Gaze 2. Best Gaze: normal - Visual 3. Visual: no visual loss - Facial Palsy 4. Facial Palsy: normal symmetrical movement - Motor Arm 5a. Motor Arm Left: no drift 5b. Motor Arm Right: no drift - Motor Leg 6a. Motor Leg Left: no drift 6b. Motor Leg Right: no drift - Limb Ataxia 7. Limb Ataxia: absent - Sensory 8. Sensory: normal - Best Language 9. Best Language: mild/moderate aphasia - Dysarthria 10. Dysarthria: normal - Extinction and Inattention 11. Extinction/Inattention: no abnormality - Scoring Total Score: 1 Stroke Severity: Minor Stroke
--- NOTE | 2019-08-07 15:10 | XRay Report ---
CHEST 1 VIEW INDICATION: WEAKNESS. COMPARISON: None FINDINGS: Support devices: None. Heart: Within normal limits. Lungs/Pleura: No acute air space or interstitial disease. Additional findings: None. IMPRESSION: No acute findings. Signer Name: Con Seymour Jr, MD Signed: 08/07/2019 3:05 PM Workstation Name: [id number]
[2019-08-07] MEDS ORDERED: SUMAtriptan SUCCINATE 6 MG/0.5 ML INJ SUB-Q ONE (15:19)
[2019-08-07] MEDS ORDERED: BUTALB/ACETAMINOPHEN/CAFFEINE TAB PO ONE (15:26)
[2019-08-07] MEDS ORDERED: methylPREDNISolone Sod Succinate 125 MG/2 ML INJ IM ONE (15:26)
[2019-08-07] MEDS ORDERED: diphenhydrAMINE 50 MG/ML VIAL IV ONE (15:27)
--- NOTE | 2019-08-07 15:41 | Cat Scan Report ---
CT angio head INDICATION / CLINICAL INFORMATION: 44 years Female; slurred speech. TECHNIQUE: Thin cut axial images obtained through the head during IV bolus contrast administration. S agittal, coronal, and 3 plane MIP reconstructions performed by the technologist. NASCET type criteria used evaluate stenoses. Automated exposure control utilized for radiation reduction purposes. COMPARISON: None available. FINDINGS: INTERNAL CAROTID ARTERIES: No significant narrowing appreciated. VERTEBROBASILAR SYSTEM: No significant narrowing appreciated. DISTAL BRANCHES: Distal branches of the anterior, middle, and posterior cerebral arteries are fairly symmetric in appearance and number. ANEURYSM: None identified. ADDITIONAL FINDINGS: Remainder of the surrounding soft tissues are grossly normal. IMPRESSION: No significant abnormality on this CTA of the head. Signer Name: Emmanuel Medellin MD, III Signed: 08/07/2019 3:36 PM Workstation Name: [id number]
--- NOTE | 2019-08-07 15:45 | Cat Scan Report ---
CT angio neck INDICATION / CLINICAL INFORMATION: 44 years Female; Slurred speech. TECHNIQUE: Thin cut axial images obtained through the head during IV bolus contrast administration. S agittal, coronal, and 3 plane MIP reconstructions performed by the technologist. NASCET type criteria used evaluate stenoses. All CT scans at this location are performed using CT dose reduction for ALAR A by means of automated exposure control. COMPARISON: None available. FINDINGS: ARCH: Normal aortic arch branching suggested. CAROTID ARTERIES: The visualized common and internal carotid arteries are widely patent. VERTEBRAL ARTERIES: Codominant vertebral system seen. No significant stenosis appreciated. ADDITIONAL FINDINGS: Remainder of the surrounding soft tissues are grossly normal. IMPRESSION: No significant stenosis appreciated on this CTA of the neck. Signer Name: Emmanuel Medellin MD, III Signed: 08/07/2019 3:40 PM Workstation Name: [id number]
[2019-08-07] MEDS ORDERED: HALOPERIDOL LACTATE 5 MG/1 ML INJ IM ONE (15:55)
[2019-08-07] MEDS ORDERED: ASPIRIN 81 MG TAB CHEW PO ONE (16:01)
[2019-08-07] MEDS ORDERED: PROCHLORPERAZINE EDISYLATE 10 MG/2 ML VIAL IV ONE (16:27)
[2019-08-07] MEDS ORDERED: ONDANSETRON 4 MG/2 ML INJ IV PRN ×2 (20:23)
[2019-08-07] MEDS ORDERED: HYDROmorphone 1 MG/1 ML INJ IV PRN (20:23)
[2019-08-07] MEDS ORDERED: ACETAMINOPHEN 325 MG TAB PO PRN ×2 (20:23)
[2019-08-07] MEDS ORDERED: DEXTROSE 50% IN WATER (25GM) 50 ML SYRINGE IV PRN (20:23)
[2019-08-07] MEDS ORDERED: METOCLOPRAMIDE 10 MG TAB PO PRN (20:23)
[2019-08-07] MEDS ORDERED: MAGNESIUM HYDROXIDE (MOM) ORAL LIQD UDC PO PRN (20:23)
[2019-08-07] MEDS ORDERED: PROMETHAZINE 25 MG RECT SUPP PR PRN (20:23)
--- NOTE | 2019-08-07 20:26 | Consultation ---
History of Present Illness History of present illness: [facility] Date of Service: 08/07/2019 13:25:49 Impression: RO Acute Ischemic Stroke Comments: Right sided weakness, that is inconsistent on exam. Advanced imaging did not show any lvo. she will need admission for further workup for right sided weakness and headache. Metrics: Last Known Well: 08/07/2019 07:30:00 [facility] Notification Time: 08/07/2019 13:25:25 Arrival Time: 08/07/2019 13:25:49 Stamp Time: 08/07/2019 13:25:49 Time First Login Attempt: 08/07/2019 13:32:19 Video Start Time: 08/07/2019 13:32:19 Symptoms: right sided weakness. NIHSS Start Assessment Time: 08/07/2019 13:36:52 Patient is not a candidate for tPA. Patient was not deemed candidate for tPA thrombolytics because of Last Well Known Above 4.5 Hours. Video End Time: 08/07/2019 13:50:41 CT head showed no acute hemorrhage or acute core infarct. Advanced imaging was reviewed, No Indication of Large Vessel Occlusive Thrombus, per rad read ER Physician notified of the decision on thrombolytics management on 08/07/2019 14:01:12 Our recommendations are outlined below. Recommendations: Activate Stroke Protocol Admission/Order Set Stroke/Telemetry Floor Neuro Checks Bedside Swallow Eval DVT Prophylaxis IV Fluids, Normal Saline Head of Bed Below 30 Degrees Euglycemia and Avoid Hyperthermia (PRN Acetaminophen) Initiate Aspirin Lipid Panel to Be Obtained, if Not Done in the Last Three Months Therapies: Physical Therapy, Occupational Therapy, Speech Therapy Assessment When Applicable Dysphaghia Screen: Swallow Evaluation, Bedside NPO Until Swallow Evaluation Disposition: Follow up with Teleneurology Follow up Sign Out: Discussed with Emergency Department Provider History of Present Illness: Patient is a 44 year old Female. Patient was brought by EMS for symptoms of right sided weakness. The patient comes to the hospital for right sided weakness. The last time she was seen normal was sometime around 730 per kids, but by the at 630am. She apparently had a non epileptic seizure around and fell asleep and then the kids went to school. She has a history of hemiplegic migraines- but it usually affects the left side, not the right. She apparently woke up at 1130, called and sounded slurred. She also describes she has a headache on the left side of her head. CT head showed no acute hemorrhage or acute core infarct. Examination: 1A: Level of Consciousness - Alert; keenly responsive + 0 1B: Ask Month and Age - Both Questions Right + 0 1C: Blink Eyes & Squeeze Hands - Performs Both Tasks + 0 2: Test Horizontal Extraocular Movements - Normal + 0 3: Test Visual Larios - No Visual Loss + 0 4: Test Facial Palsy (Use Grimace if Obtunded) - Normal symmetry + 0 5A: Test Left Arm Motor Drift - No Drift for 10 Seconds + 0 5B: Test Right Arm Motor Drift - No Drift for 10 Seconds + 0 6A: Test Left Leg Motor Drift - No Drift for 5 Seconds + 0 6B: Test Right Leg Motor Drift - Drift, but doesn't hit bed + 1 7: Test Limb Ataxia (FNF/Heel-Hampton) - No Ataxia + 0 8: Test Sensation - Mild-Moderate Loss: Less Sharp/More Dull + 1 9: Test Language/Aphasia - Normal; No aphasia + 0 10: Test Dysarthria - Mild-Moderate Dysarthria: Slurring but can be understood + 1 11: Test Extinction/Inattention - No abnormality + 0 NIHSS Score: 3 Patient was informed the Neurology Consult would happen via TeleHealth consult by way of interactive audio and video telecommunications and consented to receiving care in this manner. Due to the immediate potential for life-threatening deterioration due to underlying acute neurologic illness, I spent 35 minutes providing critical care. This time includes time for face to face visit via telemedicine, review of medical records, imaging studies and discussion of findings with providers, the patient and/or family. Dr Joseph Skag[facility] Case [id number] Medications and Allergies Allergies Allergy/AdvReac Type Severity Reaction Status Date / Time levetiracetam [From Keppra] Allergy Intermediate Vomiting Verified 06/06/19 07:28 divalproex sodium Allergy Unknown Verified 06/06/19 07:28 [From Depakote] doxycycline Allergy Vomiting Verified 06/06/19 07:28 metoclopramide HCl Allergy Unknown Verified 06/06/19 07:28 [From Reglan] Penicillins Allergy Unknown Verified 06/06/19 07:28 sumatriptan [From Imitrex] Allergy Unknown Verified 06/06/19 07:28 Home Medications Medication Instructions Recorded Confirmed Last Taken Type Zolpidem Tartrate [Ambien CR] 12.5 mg PO QHS 05/06/16 07/15/18 07/13/18 22:00 History Aspirin 325 mg PO QDAY #30 tablet 06/30/18 07/15/18 07/02/18 Rx AtorvaSTATin [Lipitor] 40 mg PO QHS #30 tablet 06/30/18 07/15/18 07/13/18 22:00 Rx SUMAtriptan succinate [Imitrex] 0.5 ml SUB-Q BID PRN 07/02/18 07/15/18 07/02/18 History Diazepam [Valium] 1 tab PO BID PRN #6 tablet 09/01/18 Unknown Rx methylPREDNISolone [Medrol] 4 mg PO DAILY 6 Days #1 tab.ds.pk 09/01/18 Unknown Rx Ondansetron [Zofran ODT TAB] 4 mg PO Q8HR PRN #20 tab.rapdis 09/16/18 Unknown Rx Butalb/Acetaminophen/Caffeine 1 cap PO Q6HR PRN #12 cap 01/02/19 Unknown Rx [Fioricet 50-300-40 mg CAP] Butalb/Acetamin/Caff 50-325-40 1 tab PO Q6HR PRN #14 tab 02/07/19 Unknown Rx [Fioricet 50-325-40] Promethazine [Phenergan] 25 mg PO Q6HR PRN #24 tab 02/07/19 Unknown Rx Permethrin 5% [Acticin 5% CREAM] 1 applicatio TP ONCE #1 tube 05/25/19 Unknown Rx Triamcinolone Acetonide 1 applicatio TP BID #1 bottle 05/25/19 Unknown Rx [Triamcinolone 0.1% LOTION] diphenhydrAMINE [Benadryl CAP] 25 mg PO Q6HR PRN #20 capsule 05/25/19 Unknown Rx predniSONE [Deltasone] 20 mg PO QDAY #5 tab 05/25/19 Unknown Rx Physical Examination - Vital Signs Vital Signs: Vital Signs BP 95/47 08/07/19 17:15 Results - Laboratory Findings CBC and BMP: 08/07/19 13:22 08/07/19 13:22 Abnormal Lab Findings: Abnormal Labs 08/07/19 08/07/19 13:22 13:22 Hgb 14.4 H Seg Neuts % (Manual) 19.0 L Lymphocytes % (Manual) 77.0 H Seg Neutrophils # Man 1.1 L Potassium 3.4 L
[2019-08-07] MEDS ORDERED: SODIUM CHLORIDE 0.9% 1000 ML 1,000 ML IV SCH (20:30)
[2019-08-07] MEDS ORDERED: NON-FORMULARY EACH (Butalb/Acetaminophen/Caffeine [Fioricet 50-300-40 Mg Cap] 1 CAP) PO PRN (20:31)
[2019-08-07] MEDS ORDERED: BUTALB/ACETAMINOPHEN/CAFFEINE TAB PO PRN (20:31)
--- NOTE | 2019-08-07 20:39 | History and Physical Report ---
History of Present Illness Date of examination: 08/07/19 Date of admission: 08/07/19 16:40 Chief complaint: 44-year-old with a history of hemiplegic migraines, CVA, seizure disorder presents with acute episode of slurred speech and right-sided weakness including the right arm and right leg. Patient has just received medications to calm down and therefore limited history provided by . Patient states when patient when he left patient's at home she was doing fine and was caught by a friend stating she was having a seizure. 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 And since patient has not taken the seizure medications they have been trying CBD oil which is done better than nothing at all he states. Shortly after the seizure begin patient stated she had a headache in right-sided weakness in the arm and leg. Patient also had slurred speech. Patient relates getting a headache almost every day. She states the last time she got weakness was on her left side and now this time the weakness is on the right side. Patient also had a history of a CVA 6 years ago. Upon review of history patient most recent admission she received TPA for similar symptoms. At that time no evidence of stroke were found. Patient at present lethargic resting well. Unable to really appreciate weakness at this particular time. History of present illness: Cc chief complaint Past History Past Medical History: migraines, pulmonary embolism, seizures, sarcoidosis. denies: acute [place], atrial fib, arrhythmia, anemia, arthritis, CAD, cancer, COPD, diabetes, heart failure, hyperthyroidism, hypertension Past Surgical History: Other (Female surgery.) Social history: , lives with family, full code. denies: alcohol abuse, prescription drug abuse, IV drug use Family history: no significant family history Medications and Allergies Allergies Allergy/AdvReac Type Severity Reaction Status Date / Time levetiracetam [From Keppra] Allergy Intermediate Vomiting Verified 06/06/19 07:28 divalproex sodium Allergy Unknown Verified 06/06/19 07:28 [From Depakote] doxycycline Allergy Vomiting Verified 06/06/19 07:28 metoclopramide HCl Allergy Unknown Verified 06/06/19 07:28 [From Reglan] Penicillins Allergy Unknown Verified 06/06/19 07:28 sumatriptan [From Imitrex] Allergy Unknown Verified 06/06/19 07:28 Home Medications Medication Instructions Recorded Confirmed Last Taken Type Zolpidem Tartrate [Ambien CR] 12.5 mg PO QHS 05/06/16 07/15/18 07/13/18 22:00 History Aspirin 325 mg PO QDAY #30 tablet 06/30/18 07/15/18 07/02/18 Rx AtorvaSTATin [Lipitor] 40 mg PO QHS #30 tablet 06/30/18 07/15/18 07/13/18 22:00 Rx SUMAtriptan succinate [Imitrex] 0.5 ml SUB-Q BID PRN 07/02/18 07/15/18 07/02/18 History Diazepam [Valium] 1 tab PO BID PRN #6 tablet 09/01/18 Unknown Rx methylPREDNISolone [Medrol] 4 mg PO DAILY 6 Days #1 tab.ds.pk 09/01/18 Unknown Rx Ondansetron [Zofran ODT TAB] 4 mg PO Q8HR PRN #20 tab.rapdis 09/16/18 Unknown Rx Butalb/Acetaminophen/Caffeine 1 cap PO Q6HR PRN #12 cap 01/02/19 Unknown Rx [Fioricet 50-300-40 mg CAP] Butalb/Acetamin/Caff 50-325-40 1 tab PO Q6HR PRN #14 tab 02/07/19 Unknown Rx [Fioricet 50-325-40] Promethazine [Phenergan] 25 mg PO Q6HR PRN #24 tab 02/07/19 Unknown Rx Permethrin 5% [Acticin 5% CREAM] 1 applicatio TP ONCE #1 tube 05/25/19 Unknown Rx Triamcinolone Acetonide 1 applicatio TP BID #1 bottle 05/25/19 Unknown Rx [Triamcinolone 0.1% LOTION] diphenhydrAMINE [Benadryl CAP] 25 mg PO Q6HR PRN #20 capsule 05/25/19 Unknown Rx predniSONE [Deltasone] 20 mg PO QDAY #5 tab 05/25/19 Unknown Rx Active Meds: Active Medications Acetaminophen (Tylenol) 650 mg PO Q4H PRN PRN Reason: Pain MILD(1-3)/Fever >100.5/GARCIAS Acetaminophen (Tylenol) 650 mg PO Q4H PRN PRN Reason: Pain, Mild (1-3) Acetaminophen/Butalbital/Caffeine (Fioricet) 1 tab PO Q6HR PRN PRN Reason: Headache Aspirin (Aspirin) 325 mg PO QDAY MICHAEL Bisacodyl (Dulcolax) 10 mg MT QDAY PRN PRN Reason: Constipation Dextrose (D50w (25gm) Syringe) 50 ml IV Q30MIN PRN; Protocol PRN Reason: Hypoglycemia Enoxaparin Sodium (Enoxaparin) 30 mg SUB-Q QDAY MICHAEL Famotidine (Pepcid) 20 mg IV BID MICHAEL Hydromorphone HCl (Dilaudid) 0.25 mg IV Q3H PRN PRN Reason: Pain, Moderate (4-6) Sodium Chloride (Nacl 0.9% 1000 Ml) 1,000 mls @ 100 mls/hr IV DIRECT MICHAEL Magnesium Hydroxide (Milk Of Magnesia) 30 ml PO Q4H PRN PRN Reason: Constipation Metoclopramide HCl (Reglan) 10 mg PO Q6H PRN PRN Reason: Nausea And Vomiting Miscellaneous Medication (Butalb/Acetaminophen/Caffeine [Fioricet 50-300-40 Mg Cap]) 1 cap PO Q6HR PRN PRN Reason: Pain , Severe (7-10) Ondansetron HCl (Zofran) 4 mg IV Q8H PRN PRN Reason: Nausea And Vomiting Ondansetron HCl (Zofran) 4 mg IV Q8H PRN PRN Reason: Nausea And Vomiting Promethazine HCl (Phenergan) 25 mg MT Q6H PRN PRN Reason: Nausea And Vomiting Sodium Chloride (Sodium Chloride Flush Syringe 10 Ml) 10 ml IV BID MICHAEL Sodium Chloride (Sodium Chloride Flush Syringe 10 Ml) 10 ml IV PRN PRN PRN Reason: LINE FLUSH Sodium Chloride (Sodium Chloride Flush Syringe 10 Ml) 10 ml INJ PRN PRN PRN Reason: LINE FLUSH Review of Systems Constitutional: fatigue, weakness, malaise, chronic headaches, poor appetite, no weight loss, no weight gain, no fever, no chills, no lethargy, no chronic pain Ears, nose, mouth and throat: headache, vertigo, no ear pain, no decreased hearing, no nose pain, no dental pain, no sore throat, no swelling in mouth, no odynophagia, no post-nasal drip, no neck fullness/pressure, no neck lump Breasts: deferred Cardiovascular: no chest pain, no orthopnea, no palpitations, no edema, no paroxysmal nocturnal dyspnea, no phlebitis, no high blood pressure, no leg edema, no other Respiratory: no cough with sputum, no excessive sputum, no hemoptysis, no sh ortness of breath, no congestion, no pleurisy, no other Gastrointestinal: no vomiting, no diarrhea, no change in bowel habits, no melena, no loss of appetite, no early satiety, no heartburn, no belching, no early satiety Genitourinary Female: no dyspareunia, no dysmenorrhea Musculoskeletal: arm numbness/tingling, morning stiffness, myalgias, no neck stiffness, no neck pain, no shooting arm pain, no low back pain, no shooting leg pain, no leg numbness/tingling, no redness of joints, no hot joints, no muscle weakness, no muscle cramps, no atrophy, no limitation of motion, no frequent falls, no arthritis, no other Integumentary: no redness, no jaundice, no growths, no lesions, no depigmentation Neurological: weakness, numbness, seizures, headaches, migraines, convulsions, change in speech, no transient paralysis, no paralysis, no parathesias, no syncope, no tremors, no ataxia, no lack of coordination, no vertigo, no aphasia, no change in mentation, no confusion, no memory loss, no changes in smell/taste, no balance difficulties, no gait dysfunction, no motor disturbance, no double vision, no hearing difficulties, no paralysis Psychiatric: change in sleep habits, no anxiety, no memory loss, no sleep disturbances, no insomnia, no hypersomnia, no change in libido, no hallucinations, no paranoia, no depression, no hopelessness Endocrine: no heat intolerance, no polyphagia, no excessive thirst, no polydipsia, no excessive sweating, no flushing, no weight change, no low blood sugars, no fatigue Hematologic/Lymphatic: no easy bleeding, no lymphadenopathy, no other Allergic/Immunologic: no urticaria, no wheezing, no persistent infections, no gluten intolerance Exam - Constitutional Vitals: Temp Pulse Resp BP Pulse Ox 60 14 94/51 98 08/07/19 20:10 08/07/19 20:10 08/07/19 20:10 08/07/19 20:10 General appearance: Present: no acute distress, well-nourished - EENT Eyes: Present: PERRL ENT: hearing intact, clear oral mucosa - Neck Neck: Present: supple, normal ROM - Respiratory Respiratory effort: normal Respiratory: bilateral: CTA - Cardiovascular Heart Sounds: Present: S1 & S2. Absent: rub, click - Extremities Extremities: pulses symmetrical, No edema Peripheral Pulses: within normal limits - Abdominal General gastrointestinal: Present: soft, non-tender, non-distended, normal bowel sounds Female genitourinary: Present: normal - Integumentary Integumentary: Present: clear, warm, dry - Musculoskeletal Musculoskeletal: strength equal bilaterally, generalized weakness - Psychiatric Psychiatric: appropriate mood/affect, intact judgment & insight - Neurologic Neurologic: CNII-XII intact, moves all extremities, other (Unable to really tell about focal neurologic deficits because of patient's mental status at this time. I did see her move right arm however when I awakened her.) Results - Labs CBC & Chem 7: 08/07/19 13:22 08/07/19 13:22 Labs: Laboratory Last Values WBC 5.6 K/mm3 (4.5-11.0) 08/07/19 13:22 RBC 4.63 M/mm3 (3.65-5.03) 08/07/19 13:22 Hgb 14.4 gm/dl (10.1-14.3) H 08/07/19 13:22 Hct 42.2 % (30.3-42.9) 08/07/19 13:22 MCV 91 fl (79-97) 08/07/19 13:22 MCH 31 pg (28-32) 08/07/19 13:22 MCHC 34 % (30-34) 08/07/19 13:22 RDW 14.1 % (13.2-15.2) 08/07/19 13:22 Plt Count 379 K/mm3 (140-440) 08/07/19 13:22 Lymph % (Auto) [employer] 08/07/19 13:22 Add Manual Diff Complete 08/07/19 13:22 Total Counted 100 08/07/19 13:22 Seg Neutrophils % Editor [employer] 08/07/19 13:22 Seg Neuts % (Manual) 19.0 % (40.0-70.0) L 08/07/19 13:22 Band Neutrophils % 0 % 08/07/19 13:22 Lymphocytes % (Manual) 77.0 % (13.4-35.0) H 08/07/19 13:22 Reactive Lymphs % (Man) 0 % 08/07/19 13:22 Monocytes % (Manual) 4.0 % (0.0-7.3) 08/07/19 13:22 Eosinophils % (Manual) 0 % (0.0-4.3) 08/07/19 13:22 Basophils % (Manual) 0 % (0.0-1.8) 08/07/19 13:22 Metamyelocytes % 0 % 08/07/19 13:22 Myelocytes % 0 % 08/07/19 13:22 Promyelocytes % 0 % 08/07/19 13:22 Blast Cells % 0 % 08/07/19 13:22 Nucleated RBC % Not Reportable 08/07/19 13:22 Seg Neutrophils # Man 1.1 K/mm3 (1.8-7.7) L 08/07/19 13:22 Band Neutrophils # 0.0 K/mm3 08/07/19 13:22 Lymphocytes # (Manual) 4.3 K/mm3 (1.2-5.4) 08/07/19 13:22 Abs React Lymphs (Man) 0.0 K/mm3 08/07/19 13:22 Monocytes # (Manual) 0.2 K/mm3 (0.0-0.8) 08/07/19 13:22 Eosinophils # (Manual) 0.0 K/mm3 (0.0-0.4) 08/07/19 13:22 Basophils # (Manual) 0.0 K/mm3 (0.0-0.1) 08/07/19 13:22 Metamyelocytes # 0.0 K/mm3 08/07/19 13:22 Myelocytes # 0.0 K/mm3 08/07/19 13:22 Promyelocytes # 0.0 K/mm3 08/07/19 13:22 Blast Cells # 0.0 K/mm3 08/07/19 13:22 WBC Morphology Not Reportable 08/07/19 13:22 Hypersegmented Neuts Not Reportable 08/07/19 13:22 Hyposegmented Neuts Not Reportable 08/07/19 13:22 Hypogranular Neuts Not Reportable 08/07/19 13:22 Smudge Cells Not Reportable 08/07/19 13:22 Toxic Granulation Not Reportable 08/07/19 13:22 Toxic Vacuolation Not Reportable 08/07/19 13:22 Dohle Bodies Not Reportable 08/07/19 13:22 Pelger-Huet Anomaly Not Reportable 08/07/19 13:22 Aureliano Rods Not Reportable 08/07/19 13:22 Platelet Estimate Consistent w auto 08/07/19 13:22 Clumped Platelets Not Reportable 08/07/19 13:22 Plt Clumps, EDTA Not Reportable 08/07/19 13:22 Large Platelets Not Reportable 08/07/19 13:22 Giant Platelets Not Reportable 08/07/19 13:22 Platelet Satelliting Not Reportable 08/07/19 13:22 Plt Morphology Comment Not Reportable 08/07/19 13:22 RBC Morphology Normal 08/07/19 13:22 Dimorphic RBCs Not Reportable 08/07/19 13:22 Polychromasia Not Reportable 08/07/19 13:22 Hypochromasia Not Reportable 08/07/19 13:22 Poikilocytosis Not Reportable 08/07/19 13:22 Anisocytosis Not Reportable 08/07/19 13:22 Microcytosis Not Reportable 08/07/19 13:22 Macrocytosis Not Reportable 08/07/19 13:22 Spherocytes Not Reportable 08/07/19 13:22 Pappenheimer Bodies Not Reportable 08/07/19 13:22 Sickle Cells Not Reportable 08/07/19 13:22 Target Cells Not Reportable 08/07/19 13:22 Tear Drop Cells Not Reportable 08/07/19 13:22 Ovalocytes Not Reportable 08/07/19 13:22 Helmet Cells Not Reportable 08/07/19 13:22 [place] Bodies Not Reportable 08/07/19 13:22 [place] Rings Not Reportable 08/07/19 13:22 Dilan Cells Not Reportable 08/07/19 13:22 Bite Cells Not Reportable 08/07/19 13:22 Crenated Cell Not Reportable 01/09/20 13:22 Elliptocytes Not Reportable 08/07/19 13:22 Acanthocytes (Spur) Not Reportable 08/07/19 13:22 Rouleaux Not Reportable 08/07/19 13:22 Hemoglobin C Crystals Not Reportable 08/07/19 13:22 Schistocytes Not Reportable 08/07/19 13:22 Malaria parasites Not Reportable 08/07/19 13:22 [place] Bodies Not Reportable 08/07/19 13:22 Hem Pathologist Commnt No 08/07/19 13:22 PT 13.6 Sec. (12.2-14.9) 08/07/19 13:22 INR 1.03 (0.87-1.13) 08/07/19 13:22 APTT 30.1 Sec. (24.2-36.6) 08/07/19 13:22 Thrombin Time 16.3 Sec. (15.1-19.6) 08/07/19 13:22 Sodium 143 mmol/L (137-145) 08/07/19 13:22 Potassium 3.4 mmol/L (3.6-5.0) L 08/07/19 13:22 Chloride 105.5 mmol/L (98-107) 08/07/19 13:22 Carbon Dioxide 22 mmol/L (22-30) 08/07/19 13:22 Anion Gap 19 mmol/L 08/07/19 13:22 BUN 8 mg/dL (7-17) 08/07/19 13:22 Creatinine 0.8 mg/dL (0.7-1.2) 08/07/19 13:22 Estimated GFR > 60 ml/min 08/07/19 13:22 BUN/Creatinine Ratio 10 % 08/07/19 13:22 Glucose 95 mg/dL (65-100) 08/07/19 13:22 POC Glucose 87 (70-105) 08/07/19 13:30 Calcium 9.6 mg/dL (8.4-10.2) 08/07/19 13:22 Total Bilirubin 0.30 mg/dL (0.1-1.2) 08/07/19 13:22 AST 14 units/L (5-40) 08/07/19 13:22 ALT 8 units/L (7-56) 08/07/19 13:22 Alkaline Phosphatase 106 units/L (35-129) 08/07/19 13:22 Total Creatine Kinase 33 units/L (30-135) 08/07/19 13:22 CK-MB (CK-2) < 1.0 ng/mL (0.0-4.0) 08/07/19 13:22 CK-MB (CK-2) Rel Index 3.0 (0-4) 08/07/19 13:22 Troponin T < 0.010 ng/mL (0.00-0.029) 08/07/19 13:22 Total Protein 7.6 g/dL (6.3-8.2) 08/07/19 13:22 Albumin 4.6 g/dL (3.9-5) 08/07/19 13:22 Albumin/Globulin Ratio 1.5 % 08/07/19 13:22 HCG, Qual Negative (Negative) 08/07/19 13:22 - Imaging and Cardiology Chest x-ray: image reviewed CT Scan - head: image reviewed Assessment and Plan Advance Directives: Yes VTE prophylaxis?: Chemical Plan of care discussed with patient/family: Yes - Patient Problems (1) Seizure Current Visit: Yes Status: Acute Plan to address problem: At present may be [place] seizure. What the described to me was not [place] or [place] seizure. Patient is allergic to medications all the triptans. 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 Ativan for uncontrolled seizures if necessary. (2) Aphasia Current Visit: Yes Status: Acute Plan to address problem: Patient with some aphasia. Associated with a headache and migraine. Did have a similar episode last year and most likely the same etiology on this time. Will attempt to aggressively treat headaches with pain control Fioricet and PRN morphine. Patient not eating well at some IV hydration. (3) Acute alteration in mental status Current Visit: No Status: Acute Plan to address problem: Patient decrease sensorium from medication and fatigue at this time. (4) Hemiplegic migraine Current Visit: No Status: Acute Plan to address problem: Patient with a history of hemiplegic migraines most likely etiology will obtain MRI in the a.m. To confirm diagnosis. (5) Slurred speech Current Visit: No Status: Acute (6) CVA (cerebral vascular accident) Current Visit: No Status: Chronic Qualifiers: CVA mechanism: unspecified Qualified Code(s): I63.9 - Cerebral infarction, unspecified Plan to address problem: Being currently treated for CVA. Patient has had TIA. Add aspirin hydration patient is not on statin. confused about if this may be a potential allergy as well. Will hold for now. Follow-up MRI in the a.m.
[2019-08-07] MEDS: FAMOTIDINE 20 MG/2 ML INJ IV SCH (22:23)
[2019-08-08 06:29] LABS: Alanine Aminotransferase 6 units/L (7-56); Albumin 4.2 g/dL (3.9-5); BUN/Creatinine Ratio 20; Blood Urea Nitrogen 14 mg/dL (7-17); Calcium 9.7 mg/dL (8.4-10.2); Chol/HDL Ratio 4.12 %; HDL Cholesterol 55 mg/dL (40-59); Hemolysis Index 8; LDL Cholesterol,Direct 160 mg/dL (50-130)
[2019-08-08] MEDS ORDERED: LORazepam 2 MG/ML VIAL IV PRN (09:39)
[2019-08-08] MEDS ORDERED: ENOXAPARIN 40 MG/0.4 ML INJ SUB-Q SCH (10:00)
[2019-08-08] MEDS ORDERED: ASPIRIN 325 MG TAB PO SCH (10:00)
[2019-08-08 10:06] LABS: Bacteria,Urine 1+ /HPF (Negative); Bilirubin,Urine NEG (Negative); Blood,Urine NEG (Negative); Color,Urine Yellow (Yellow); Protein,Urine <15 mg/dL mg/dL (Negative); Urobilinogen,Urine < 2.0 mg/dL (<2.0); WBC,Urine < 1.0 /HPF (0.0-6.0)
[2019-08-08] MEDS: FAMOTIDINE 20 MG/2 ML INJ IV SCH (10:34)
[2019-08-08] MEDS ORDERED: diphenhydrAMINE 50 MG/ML VIAL IV ONE ×2 (14:00→20:06)
[2019-08-08] MEDS ORDERED: PROCHLORPERAZINE EDISYLATE 10 MG/2 ML VIAL IV ONE (14:00)
[2019-08-08] MEDS: MORPHINE 2 MG/1 ML INJ IV PRN ×2 (14:22→19:57)
--- NOTE | 2019-08-08 17:42 | Magnetic Resonance Report ---
MRA HEAD 08/08/2019 INDICATION / CLINICAL INFORMATION: MAIN: stroke, migraines, slurred speech. TECHNIQUE: Routine MRA of the head is performed. 3-D/MIP reformats postprocessed. COMPARISON: None available. FINDINGS: MRA HEAD: Intracranial internal carotid arteries: No significant abnormality. Anterior cerebral arteries: No significant abnormality. Middle cerebral arteries: No significant abnormality. Intracranial vertebral arteries: No significant abnormality. Basilar artery: No significant abnormality. Posterior cerebral arteries: No significant abnormality. IMPRESSION: No significant abnormality. Standard MR images of the brain were also obtained with this exam. There is no evidence of acute or s ignificant abnormality. Signer Name: Papo Pedersen MD Signed: 08/08/2019 5:38 PM Workstation Name: [id number]
--- NOTE | 2019-08-08 18:30 | Discharge Summary ---
Providers - Providers Date of Admission: 08/07/19 16:40 Date of discharge: 08/08/19 Attending physician: GARTH BARGER 08/07/19 20:23 Consult to Case Management [CONS] Routine Services Needed at Discharge: Home Health Services Notified:: dre Consult to Dietitian/Nutrition [CONS] Routine Physician Instructions: Reason For Exam: Reason for Consult: Nutrition Recommendations Reason for Consult: Poor oral intake Occupational Therapy Evaluate and Treat [CONS] Routine Comment: Reason For Exam: Neuro deficits Physical Therapy Evaluation and Treat [CONS] Routine Comment: Reason For Exam: Neuro deficits 08/07/19 20:27 Speech Therapy Evaluation and Treat [CONS] Routine Reason For Exam: swallow eval Primary care physician: LUIS FERNANDO STEVENS Hospitalization Condition: Fair Pertinent studies: MRA was performed. Unremarkable. MRI was not performed. Does not need to be repeated because of patient's improvement. He scan unremarkable. Disposition: TO HOME OR SELFCARE - Discharge Diagnoses (1) Seizure Status: Acute Comment: At this point seizures were not actively confirmed. With the description was estimated not appear to be Jacksonian grand mal seizures some that will cause her to have hemiparesis but that is resolved. Can follow with Dr. Andrew Carrizales to establish anti-seizure medications. 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 (2) Aphasia Status: Acute Comment: General facial has resolved. Etiology was secondary to migraines. (3) Acute alteration in mental status Status: Acute Comment: Nico is alert oriented 3 no focal neurologic deficits now. (4) Hemiplegic migraine Status: Acute Comment: Patient's hemiplegia has resolved. Patient is asking for cocktail morphine Compazine. Does have established migraines. Patient's symptoms is resolved. Moving arms and legs alert and oriented back to baseline stable for discharge. Follow with neurology. (5) Slurred speech Status: Resolved (6) CVA (cerebral vascular accident) Status: Chronic Qualifiers: CVA mechanism: unspecified Qualified Code(s): I63.9 - Cerebral infarction, unspecified Comment: Ruled out for CVA. CT scan unremarkable. Patient did not want to have another MRI. I do not think she needs one symptoms of completely resolved. Core Measure Documentation - Palliative Care Palliative Care/ Comfort Measures: Not Applicable - Core Measures Any of the following diagnoses?: none Exam - Constitutional Vitals: Temp Pulse Resp BP Pulse Ox 97.0 F L 67 20 124/75 98 08/08/19 11:28 08/08/19 11:28 08/08/19 11:28 08/08/19 11:28 08/08/19 11:28 General appearance: Present: no acute distress, well-nourished - EENT Eyes: Present: PERRL ENT: hearing intact, clear oral mucosa - Neck Neck: Present: supple, normal ROM - Respiratory Respiratory effort: normal Respiratory: bilateral: CTA - Cardiovascular Heart Sounds: Present: S1 & S2. Absent: rub, click - Extremities Extremities: pulses symmetrical, No edema Extremity abnormal: other (resolution of hemiparesis.) Peripheral Pulses: within normal limits - Abdominal General gastrointestinal: Present: soft, non-tender, non-distended, normal bowel sounds Female genitourinary: Present: normal - Integumentary Integumentary: Present: clear, warm, dry - Musculoskeletal Musculoskeletal: gait normal, strength equal bilaterally - Psychiatric Psychiatric: appropriate mood/affect, intact judgment & insight - Neurologic Neurologic: CNII-XII intact, moves all extremities Plan Activity: no restrictions, fall precautions Weight Bearing Status: Partial Weight Bearing Follow up with: PRIMARY CARE, [Referring] - 3-5 Days
[2019-08-08 18:56] VITALS: BP 107/44
[2019-08-08] MEDS ORDERED: PROCHLORPERAZINE EDISYLATE 10 MG/2 ML VIAL IV STA (20:01)
== END 2019-08-08 21:00 | disposition home or self-care (01) ==
LOC: ED 13:11 → 3A 16:40
PROVIDERS: ADMIT Internal Medicine; ATTEND Internal Medicine
DX: G40.909 Epilepsy, unspecified, not intractable, without status epilepticus (principal); G43.409 Hemiplegic migraine, not intractable, without status migrainosus; I63.9 Cerebral infarction, unspecified; R47.01 Aphasia; R41.82 Altered mental status, unspecified; I26.99 Other pulmonary embolism without acute cor pulmonale; Z79.899 Other long term (current) drug therapy; Z90.710 Acquired absence of both cervix and uterus; Z86.73 Personal history of transient ischemic attack (TIA), and cerebral infarction without residual deficits; Z88.0 Allergy status to penicillin; Z79.82 Long term (current) use of aspirin
CPT/HCPCS: 36415; 70450; 70496; 70498; 70544; 71045; 80053; 80061; 81001; 82550; 82553; 82962; 84484; 84703; 85007; 85025; 85610; 85670; 85730; 92610; 93005; 93010; 96372; 96374; 96375; 96376; 97112; 97116; 97161; 97166; 99284; G0378; J0780; J1170; J1200; J1630; J1650; J2060; J2270; J2930; Q9967; J3030

== ENCOUNTER 2019-08-29 13:38 | Observation (INO) | payer BC, MEDICARE ==
--- NOTE | 2019-08-29 15:01 | Emergency Department Report ---
ED Neuro Deficit HPI - General Chief Complaint: Headache Stated Complaint: MIGRAINE Time Seen by Provider: 08/29/19 14:55 Source: patient Mode of arrival: Ambulatory Limitations: No Limitations - History of Present Illness Initial Comments: Patient is a 44-year-old female presents emergency room with complaints of headache, right-sided weakness and slurred speech. Patient states that her headache started 2 days ago. Patient states her right-sided weakness and slurred speech started to hour and a half ago. Patient's states that her symptoms are worsening. Patient states her headache is a 10 out of 10. Patient states her headache is better with rest and worse with light, sound and movement. Patient denies stiff neck patient denies fever or chills. Patient states the headache is in the entire head. Patient states she's had this type of viral before but she's never had this bad of right-sided weakness. -: Sudden Location: right face, right arm, right leg Presenting Symptoms: Present: Weak/Paralyzed One Side, Sudden, Severe Headache, Facial Droop/Numbness, Unable to Speak Clearly History of same: Yes Place: home Severity: severe Quality: constant Improves With: rest Worsens With: other On Anticoagulants: No Context: sudden onset Associated Symptoms: headaches, malise, weakness. denies: confusion, chest pain, cough, diaphoresis, fever/chills, nausea/vomiting, vertigo, seizures, shortness of breath, syncope - Related Data Home Medications: Home Medications Medication Instructions Recorded Confirmed Last Taken Zolpidem Tartrate [Ambien CR] 12.5 mg PO QHS 05/06/16 07/15/18 07/13/18 22:00 SUMAtriptan succinate [Imitrex] 0.5 ml SUB-Q BID PRN 07/02/18 07/15/18 07/02/18 Previous Rx's Medication Instructions Recorded Last Taken Type Aspirin 325 mg PO QDAY #30 tablet 06/30/18 07/02/18 Rx AtorvaSTATin [Lipitor] 40 mg PO QHS #30 tablet 06/30/18 07/13/18 22:00 Rx Diazepam [Valium] 1 tab PO BID PRN #6 tablet 09/01/18 Unknown Rx methylPREDNISolone [Medrol Dose 4 mg PO DAILY 6 Days #1 tab.ds.pk 09/01/18 Unknown Rx Anthony] Ondansetron [Zofran ODT TAB] 4 mg PO Q8HR PRN #20 tab.rapdis 09/16/18 Unknown Rx Butalb/Acetaminophen/Caffeine 1 cap PO Q6HR PRN #12 cap 01/02/19 Unknown Rx [Fioricet 50-300-40 mg CAP] Butalb/Acetamin/Caff 50-325-40 1 tab PO Q6HR PRN #14 tab 02/07/19 Unknown Rx [Fioricet 50-325-40] Promethazine [Phenergan] 25 mg PO Q6HR PRN #24 tab 02/07/19 Unknown Rx Permethrin 5% [Acticin 5% CREAM] 1 applicatio TP ONCE #1 tube 05/25/19 Unknown Rx Triamcinolone Acetonide 1 applicatio TP BID #1 bottle 05/25/19 Unknown Rx [Triamcinolone 0.1% LOTION] diphenhydrAMINE [Benadryl CAP] 25 mg PO Q6HR PRN #20 capsule 05/25/19 Unknown Rx predniSONE [Deltasone] 20 mg PO QDAY #5 tab 05/25/19 Unknown Rx Oxycodone HCl/Acetaminophen 1 each PO Q6HR PRN #20 tablet 08/08/19 Unknown Rx [Percocet 7.5/325 mg] Allergies/Adverse Reactions: Allergies Allergy/AdvReac Type Severity Reaction Status Date / Time levetiracetam [From Keppra] Allergy Intermediate Vomiting Verified 08/29/19 13:40 divalproex sodium Allergy Unknown Verified 08/29/19 13:40 [From Depakote] doxycycline Allergy Vomiting Verified 08/29/19 13:40 metoclopramide HCl Allergy Unknown Verified 08/29/19 13:40 [From Reglan] Penicillins Allergy Unknown Verified 08/29/19 13:40 sumatriptan [From Imitrex] Allergy Unknown Verified 08/29/19 13:40 ED Review of Systems ROS: Stated complaint: MIGRAINE Other details as noted in HPI Constitutional: weakness. denies: chills, fever Eyes: denies: eye pain, eye discharge, vision change ENT: denies: ear pain, throat pain Respiratory: denies: cough, shortness of breath, wheezing Cardiovascular: denies: chest pain, palpitations Endocrine: no symptoms reported Gastrointestinal: denies: abdominal pain, nausea, diarrhea Genitourinary: denies: urgency, dysuria, discharge Musculoskeletal: denies: back pain, joint swelling, arthralgia Skin: denies: rash, lesions Neurological: headache, weakness. 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 tonsils - Family History Family history: no significant - Social History Smoking Status: Never Smoker Substance Use Type: None - Medications Home Medications: Home Medications Medication Instructions Recorded Confirmed Last Taken Type Zolpidem Tartrate [Ambien CR] 12.5 mg PO QHS 05/06/16 07/15/18 07/13/18 22:00 History Aspirin 325 mg PO QDAY #30 tablet 06/30/18 07/15/18 07/02/18 Rx AtorvaSTATin [Lipitor] 40 mg PO QHS #30 tablet 06/30/18 07/15/18 07/13/18 22:00 Rx SUMAtriptan succinate [Imitrex] 0.5 ml SUB-Q BID PRN 07/02/18 07/15/18 07/02/18 History Diazepam [Valium] 1 tab PO BID PRN #6 tablet 09/01/18 Unknown Rx methylPREDNISolone [Medrol Dose 4 mg PO DAILY 6 Days #1 tab.ds.pk 09/01/18 Unknown Rx Anthony] Ondansetron [Zofran ODT TAB] 4 mg PO Q8HR PRN #20 tab.rapdis 09/16/18 Unknown Rx Butalb/Acetaminophen/Caffeine 1 cap PO Q6HR PRN #12 cap 01/02/19 Unknown Rx [Fioricet 50-300-40 mg CAP] Butalb/Acetamin/Caff 50-325-40 1 tab PO Q6HR PRN #14 tab 02/07/19 Unknown Rx [Fioricet 50-325-40] Promethazine [Phenergan] 25 mg PO Q6HR PRN #24 tab 02/07/19 Unknown Rx Permethrin 5% [Acticin 5% CREAM] 1 applicatio TP ONCE #1 tube 05/25/19 Unknown Rx Triamcinolone Acetonide 1 applicatio TP BID #1 bottle 05/25/19 Unknown Rx [Triamcinolone 0.1% LOTION] diphenhydrAMINE [Benadryl CAP] 25 mg PO Q6HR PRN #20 capsule 05/25/19 Unknown R x predniSONE [Deltasone] 20 mg PO QDAY #5 tab 05/25/19 Unknown Rx Oxycodone HCl/Acetaminophen 1 each PO Q6HR PRN #20 tablet 08/08/19 Unknown Rx [Percocet 7.5/325 mg] ED Neuro Physical Exam - General Limitations: No Limitations General appearance: alert, in no apparent distress Suspected Stroke: Yes - Head Head exam: Present: atraumatic, normocephalic - Eye Eye exam: Present: normal appearance - ENT ENT exam: Present: mucous membranes moist - Neck Neck exam: Present: normal inspection - Respiratory Respiratory exam: Present: normal lung sounds bilaterally. Absent: respiratory distress - Cardiovascular Cardiovascular Exam: Present: regular rate, normal rhythm. Absent: systolic murmur, diastolic murmur, rubs, gallop - GI/Abdominal GI/Abdominal exam: Present: soft, normal bowel sounds - Extremities Exam Extremities exam: Present: normal inspection - Back Exam Back exam: Present: normal inspection - Neurological Exam Neurological exam: Present: alert, oriented X3 - NIHSS Assessment Interval: Baseline 1a. Level of Consciousness: alert/keenly responsive 1b. LOC Questions: answers both correctly 1c. LOC Commands: performs tasks correctly 2. Best Gaze: normal 3. Visual: no visual loss 4. Facial Palsy: minor paralysis 5b. Motor Arm Right: drift 5a. Motor Arm Left: no drift 6a. Motor Leg Left: no drift 6b. Motor Leg Right: some gravity effort 7. Limb Ataxia: absent 8. Sensory: normal 9. Best Language: no aphasia 10. Dysarthria: mild/moderate dysarthria 11. Extinction/Inattention: no abnormality Total Score: 5 Stroke Severity: Moderate Stroke - Psychiatric Psychiatric exam: Present: normal affect, normal mood - Skin Skin exam: Present: warm, dry, intact, normal color. Absent: rash ED Course Vital Signs 08/29/19 08/29/19 08/29/19 15:00 18:01 18:30 Pulse Rate 86 72 88 Respiratory 18 17 Rate Blood Pressure 117/62 90/45 108/46 [Left] O2 Sat by Pulse 98 99 Oximetry - Reevaluation(s) Reevaluation #1: Code stroke initiated. 08/29/19 15:01 Reevaluation #2: Patient's MRI is negative. Patient having low blood pressure. Patient will be given fluids prior to given Dilaudid. 08/29/19 18:03 Reevaluation #3: I discussed all results with patient. i Discussed plan of care outpatient. Patient to be admitted to the hospitalist service. Patient agrees to plan of care and admission. 08/29/19 19:04 - Consultations Consultation #1: I consult neurology and they recommended initiating a code stroke due to her symptoms. 08/29/19 15:01 Neurologist on the patient. Neurology recommends stat MRI of the brain then admission. Neurology will recommend TPA if it shows up on the MRI. 08/29/19 15:29 I discussed case and results with neurology and neurology recommends admission for repeat imaging the morning. Neurology also recommends IV Depakote. 08/29/19 18:55 Consultation #2: Hospitalist consult for admission. Hospitalist to admit patient 08/29/19 18:58 - Lab Data Result diagrams: 08/29/19 15:19 08/29/19 15:19 Lab Results 08/29/19 08/29/19 08/29/19 Range/Units 14:53 15:19 15:19 WBC 5.5 (4.5-11.0) K/mm3 RBC 4.20 (3.65-5.03) M/mm3 Hgb 13.0 (10.1-14.3) gm/dl Hct 39.1 (30.3-42.9) % MCV 93 (79-97) fl MCH 31 (28-32) pg MCHC 33 (30-34) % RDW 13.7 (13.2-15.2) % Plt Count 402 (140-440) K/mm3 Lymph % (Auto) 34.5 (13.4-35.0) % [place] % (Auto) 6.5 (0.0-7.3) % Eos % (Auto) 1.5 (0.0-4.3) % Baso % (Auto) 0.6 (0.0-1.8) % Lymph # 1.9 (1.2-5.4) K/mm3 [place] # 0.4 (0.0-0.8) K/mm3 Eos # 0.1 (0.0-0.4) K/mm3 Baso # 0.0 (0.0-0.1) K/mm3 Seg Neutrophils % 56.9 (40.0-70.0) % Seg Neutrophils # 3.1 (1.8-7.7) K/mm3 PT 13.8 (12.2-14.9) Sec. INR 1.05 (0.87-1.13) APTT 28.7 (24.2-36.6) Sec. Thrombin Time 15.4 (15.1-19.6) Sec. Sodium (137-145) mmol/L Potassium (3.6-5.0) mmol/L Chloride (98-107) mmol/L Carbon Dioxide (22-30) mmol/L Anion Gap mmol/L BUN (7-17) mg/dL Creatinine (0.7-1.2) mg/dL Estimated GFR ml/min BUN/Creatinine Ratio % Glucose (65-100) mg/dL POC Glucose 99 (70-105) Calcium (8.4-10.2) mg/dL Total Bilirubin (0.1-1.2) mg/dL AST (5-40) units/L ALT (7-56) units/L Alkaline Phosphatase (35-129) units/L Total Creatine Kinase (30-135) units/L CK-MB (CK-2) (0.0-4.0) ng/mL CK-MB (CK-2) Rel Index (0-4) Troponin T (0.00-0.029) ng/mL Total Protein (6.3-8.2) g/dL Albumin (3.9-5) g/dL Albumin/Globulin Ratio % HCG, Quant (0-4) mIU/mL 08/29/19 08/29/19 Range/Units 15:19 15:19 WBC (4.5-11.0) K/mm3 RBC (3.65-5.03) M/mm3 Hgb (10.1-14.3) gm/dl Hct (30.3-42.9) % MCV (79-97) fl MCH (28-32) pg MCHC (30-34) % RDW (13.2-15.2) % Plt Count (140-440) K/mm3 Lymph % (Auto) (13.4-35.0) % [place] % (Auto) (0.0-7.3) % Eos % (Auto) (0.0-4.3) % Baso % (Auto) (0.0-1.8) % Lymph # (1.2-5.4) K/mm3 [place] # (0.0-0.8) K/mm3 Eos # (0.0-0.4) K/mm3 Baso # (0.0-0.1) K/mm3 Seg Neutrophils % (40.0-70.0) % Seg Neutrophils # (1.8-7.7) K/mm3 PT (12.2-14.9) Sec. INR (0.87-1.13) APTT (24.2-36.6) Sec. Thrombin Time (15.1-19.6) Sec. Sodium 142 (137-145) mmol/L Potassium 4.1 (3.6-5.0) mmol/L Chloride 103.2 (98-107) mmol/L Carbon Dioxide 25 (22-30) mmol/L Anion Gap 18 mmol/L BUN 8 (7-17) mg/dL Creatinine 0.6 L (0.7-1.2) mg/dL Estimated GFR > 60 ml/min BUN/Creatinine Ratio 13 % Glucose 103 H (65-100) mg/dL POC Glucose (70-105) Calcium 9.7 (8.4-10.2) mg/dL Total Bilirubin 0.20 (0.1-1.2) mg/dL AST 12 (5-40) units/L ALT 6 L (7-56) units/L Alkaline Phosphatase 112 (35-129) units/L Total Creatine Kinase 32 (30-135) units/L CK-MB (CK-2) < 1.0 (0.0-4.0) ng/mL CK-MB (CK-2) Rel Index 3.1 (0-4) Troponin T < 0.010 (0.00-0.029) ng/mL Total Protein 7.3 (6.3-8.2) g/dL Albumin 4.5 (3.9-5) g/dL Albumin/Globulin Ratio 1.6 % HCG, Quant 1.29 (0-4) mIU/mL - EKG Data -: EKG Interpreted by Me EKG shows normal: sinus rhythm, axis, intervals, QRS complexes, ST-T waves Rate: normal - Radiology Data Radiology results: report reviewed, image reviewed interpreted by me: CHEST 1 VIEW 08/29/2019 5:25 PM INDICATION / CLINICAL INFORMATION: weak. COMPARISON: 08/07/2019 FINDINGS: SUPPORT DEVICES: None. HEART / MEDIASTINUM: No significant abnormality. LUNGS / PLEURA: No significant pulmonary or pleural abnormality. No pneumothorax. ADDITIONAL FINDINGS: No significant additional findings. IMPRESSION: 1. No acute findings. MRI BRAIN WITHOUT CONTRAST INDICATION / CLINICAL INFORMATION: cva symptoms.. Right-sided weakness. TECHNIQUE: Multiplanar, multisequence MR images of the brain were obtained. COMPARISON: CT 08/29/2019 and MRI brain 06/28/2018 FINDINGS: BRAIN / INTRACRANIAL CONTENTS: Ventricles and cortical sulci are normal in size and configuration. There is no mass effect. No evidence of intracranial hemorrhage or extra-axial fluid collection is seen. No areas of abnormal brain parenchymal signal intensity are identified. There is no indication of remote cortical infarction. Diffusion weighted scans are negative. There is no indication of acute ischemic injury. The brainstem and cerebellum have an unremarkable appearance. CRANIOCERVICAL JUNCTION: No abnormalities are identified at the craniocervical junction. VASCULAR FLOW-VOIDS: Normal flow-voids are present within the major intracranial vessels. ORBITS: The orbits have an unremarkable appearance. SINUSES / MASTOIDS: There is no indication of inflammatory disease in the paranasal sinuses or mastoid air cells. 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 The pineal cyst has enlarged slightly (7 mm to 9 mm) since baseline study but measures less than 1 cm in greatest dime nsion. IMPRESSION: 1. Small pineal cyst increased slightly in size in comparison to MRI brain 06/28. 2. Otherwise normal MRI brain without contrast. No other interval changes are demonstrated. CT HEAD WITHOUT CONTRAST INDICATION / CLINICAL INFORMATION: Stroke symptoms. Right-sided weakness. TECHNIQUE: All CT scans at this location are performed using CT dose reduction for ALARA by means of automated exposure control. COMPARISON: Head CT 08/07/2019, 07/14/2018 and MRI brain 06/28/2018. FINDINGS: HEMORRHAGE: No evidence of intracranial hemorrhage or extra-axial fluid collection. EXTRA-AXIAL SPACES: Cortical sulci, sylvian fissures and basilar cisterns have an unremarkable appearance. VENTRICULAR SYSTEM: The ventricular system is of normal size and configuration. CEREBRAL PARENCHYMA: No areas of abnormal brain parenchymal attenuation are identified. There is no indication of recent infarction. MIDLINE SHIFT OR HERNIATION: There is no mass effect. CEREBELLUM / BRAINSTEM: Brainstem and cerebellum have an unremarkable appearance. INTRACRANIAL VESSELS:No abnormalities are identified on this noncontrast head CT. ORBITS: visualized portions of the orbits have an unremarkable appearance. SOFT TISSUES of HEAD: No significant abnormality. CALVARIUM: Evaluation of bone windows reveals no abnormalities. PARANASAL SINUSES / MASTOID AIR CELLS: Paranasal sinuses are free from inf lammatory mucosal disease. Mastoid air cells are normally pneumatized. 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 IMPRESSION: 1. No significant intercranial abnormality on CT head without contrast. - Medical Decision Making Patient is a 44-year-old female that presents emergency with right-sided weakness and global migraine. Patient has a history of migraines and strokes. Code stroke initiated immediately upon evaluation. Neurology consult. Patient has CT done in the ER which showed no acute findings. Patient had a chest x-ray which shows no acute findings. Patient's then had an MRI emergently per n eurology recommendations. Patient's MRI was negative. I discussed the case again with neurology after the MR return to neurology recommends admission for repeat imaging and possible further neurologic workup and neurology consult. Patient labs are unremarkable. Patient admitted to the hospitalist service. - Differential Diagnosis CVA, migraine, weakness, slurred speech. - Core Measures AMI Core Measures Followed: Yes Critical Care Time: Yes Critical care time in (mins) excluding proc time.: 45 Critical care attestation.: If time is entered above; I have spent that time in minutes in the direct care of this critically ill patient, excluding procedure time. Critical Care Time: 45 MINUTES ED Disposition Clinical Impression: Right sided weakness Hemiplegic migraine Qualifiers: Status migrainosus presence: with status migrainosus Intractability: intractable Qualified Code(s): G43.411 - Hemiplegic migraine, intractable, with status migrainosus Disposition: DC-09 OP ADMIT IP TO THIS HOSP Is pt being admited?: Yes Does the pt Need Aspirin: No Condition: Critical Time of Disposition: 19:04
[2019-08-29 15:28] LABS: Basophils % (Auto) 0.6 % (0.0-1.8); Eosinophils # (Auto) 0.1 K/mm3 (0.0-0.4); Eosinophils % (Auto) 1.5 % (0.0-4.3); Hematocrit 39.1 % (30.3-42.9); Lymphocytes # (Auto) 1.9 K/mm3 (1.2-5.4); Lymphocytes % (Auto) 34.5 % (13.4-35.0); Mean Corpuscular HGB Conc 33 % (30-34); Mean Corpuscular Volume 93 fl (79-97); Monocytes # (Auto) 0.4 K/mm3 (0.0-0.8); Monocytes % (Auto) 6.5 % (0.0-7.3); Platelet Count 402 K/mm3 (140-440); Red Cell Distribution Width 13.7 % (13.2-15.2)
--- NOTE | 2019-08-29 15:31 | Emergency Department Report ---
HPI - General Chief Complaint: Headache Time Seen by Provider: 08/29/19 14:55 - HPI HPI: [facility] Date of Service: 08/29/2019 15:06:00 Impression: RO Acute Ischemic Stroke Comments: The patient has had a migraine since and suddenly had numbness to the right foot. The patient has numbness, to the right foot, and does not move the right foot. Appaerently she has weakness to both left and right legs right>>left leg. If we get MRI in time, and there is a stroke we can consider tPA. she states she had a recent stroke on the . Mechanism of Stroke: Possible Thromboembolic Metrics: Last Known Well: 08/29/2019 12:30:00 [facility] Notification Time: 08/29/2019 15:05:19 Arrival Time: 08/29/2019 15:19:04 Stamp Time: 08/29/2019 15:06:00 Time First Login Attempt: 08/29/2019 15:10:34 Video Start Time: 08/29/2019 15:10:34 Symptoms: hempilegic migraine disorder Patient is not a candidate for tPA. Radiologist was called back for review of advanced imaging on 08/29/2019 1 5:19:11 ED Physician notified of diagnostic impression and management plan on 08/29/2019 15:19:07 Our recommendations are outlined below. Recommendations: Activate Stroke Protocol Admission/Order Set Stroke/Telemetry Floor Neuro Checks Bedside Swallow Eval DVT Prophylaxis IV Fluids, Normal Saline Head of Bed Below 30 Degrees Euglycemia and Avoid Hyperthermia (PRN Acetaminophen) Antiplatelet Therapy Recommended Recommended Scan: MRI Head with and Without Contrast Lipid Panel to Be Obtained, if Not Done in the Last Three Months Therapies: Physical Therapy, Occupational Therapy, Speech Therapy Assessment When Applicable Dysphaghia Screen: Swallow Evaluation, Bedside NPO Until Swallow Evaluation DVT prophylaxis: Choice of Primary Team Disposition: Follow up with Teleneurology Follow up Sign Out: Discussed with Emergency Department Provider History of Present Illness: Patient is a 44 year old Female. This effects her left side, then one month ago it started to wrap around the right side, right side went numb. This started today about 12:30 am. She started to have a headache on , she has had some numbness started when she got here. The last time he had a normal conversation was at 12:00 -12:30. Last seen normal was beyond 4.5 hours of presentation. There is no history of hemorrhagic complications or intracranial hemorrhage. There is no history of Recent Anticoagulants. There is no history of recent major surgery. Examination: 1A: Level of Consciousness - Alert; keenly responsive + 0 1B: Ask Month and Age - Both Questions Right + 0 1C: Blink Eyes & Squeeze Hands - Performs Both Tasks + 0 2: Test Horizontal Extraocular Movements - Normal + 0 3: Test Visual Larios - No Visual Loss + 0 4: Test Facial Palsy (Use Grimace if Obtunded) - Normal symmetry + 0 5A: Test Left Arm Motor Drift - No Drift for 10 Seconds + 0 5B: Test Right Arm Motor Drift - No Drift for 10 Seconds + 0 6A: Test Left Leg Motor Drift - No Drift for 5 Seconds + 0 6B: Test Right Leg Motor Drift - No Drift for 5 Seconds + 0 7: Test Limb Ataxia (FNF/Heel-Hampton) - No Ataxia + 0 8: Test Sensation - Normal; No sensory loss + 0 9: Test Language/Aphasia - Normal; No aphasia + 0 10: Test Dysarthria - Normal + 0 11: Test Extinction/Inattention - No abnormality + 0 NIHSS Score: 0 Patient was informed the Neurology Consult would happen via TeleHealth consult by way of interactive audio and video telecommunications and consented to receiving care in this manner. Due to the immediate potential for life-threatening deterioration due to underlying acute neurologic illness, I spent 35 minutes providing critical care. This time includes time for face to face visit via telemedicine, review of medic al records, imaging studies and discussion of findings with providers, the patient and/or family. 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 tonsils - Social History Smoking Status: Never Smoker Substance Use Type: None - Medications Home Medications: Home Medications Medication Instructions Recorded Confirmed Last Taken Type Zolpidem Tartrate [Ambien CR] 12.5 mg PO QHS 05/06/16 07/15/18 07/13/18 22:00 History Aspirin 325 mg PO QDAY #30 tablet 06/30/18 07/15/18 07/02/18 Rx AtorvaSTATin [Lipitor] 40 mg PO QHS #30 tablet 06/30/18 07/15/18 07/13/18 22:00 Rx SUMAtriptan succinate [Imitrex] 0.5 ml SUB-Q BID PRN 07/02/18 07/15/18 07/02/18 History Diazepam [Valium] 1 tab PO BID PRN #6 tablet 09/01/18 Unknown Rx methylPREDNISolone [Medrol Dose 4 mg PO DAILY 6 Days #1 tab.ds.pk 09/01/18 Unknown Rx Anthony] Ondansetron [Zofran ODT TAB] 4 mg PO Q8HR PRN #20 tab.rapdis 09/16/18 Unknown Rx Butalb/Acetaminophen/Caffeine 1 cap PO Q6HR PRN #12 cap 01/02/19 Unknown Rx [Fioricet 50-300-40 mg CAP] Butalb/Acetamin/Caff 50-325-40 1 tab PO Q6HR PRN #14 tab 02/07/19 Unknown Rx [Fioricet 50-325-40] Promethazine [Phenergan] 25 mg PO Q6HR PRN #24 tab 02/07/19 Unknown Rx Permethrin 5% [Acticin 5% CREAM] 1 applicatio TP ONCE #1 tube 05/25/19 Unknown Rx Triamcinolone Acetonide 1 applicatio TP BID #1 bottle 05/25/19 Unknown Rx [Triamcinolone 0.1% LOTION] diphenhydrAMINE [Benadryl CAP] 25 mg PO Q6HR PRN #20 capsule 05/25/19 Unknown Rx predniSONE [Deltasone] 20 mg PO QDAY #5 tab 05/25/19 Unknown Rx Oxycodone HCl/Acetaminophen 1 each PO Q6HR PRN #20 tablet 08/08/19 Unknown Rx [Percocet 7.5/325 mg] ED Review of Systems ROS: Stated complaint: MIGRAINE Other details as noted in HPI Constitutional: weakness. denies: chills, fever Eyes: denies: eye pain, eye discharge, vision change ENT: denies: ear pain, throat pain Respiratory: denies: cough, shortness of breath, wheezing Cardiovascular: denies: chest pain, palpitations Endocrine: no symptoms reported Gastrointestinal: denies: abdominal pain, nausea, diarrhea Genitourinary: denies: urgency, dysuria, discharge Musculoskeletal: denies: back pain, joint swelling, arthralgia Skin: denies: rash, lesions Neurological: headache, weakness. denies: paresthesias Psychiatric: denies: anxiety, depression Hematological/Lymphatic: denies: easy bleeding, easy bruising ED Medical Decision Making - Lab Data Result diagrams: 08/29/19 15:19 Critical care attestation.: If time is entered above; I have spent that time in minutes in the direct care of this critically ill patient, excluding procedure time. ED Disposition Condition: Stable
--- NOTE | 2019-08-29 15:35 | Cat Scan Report ---
CT HEAD WITHOUT CONTRAST INDICATION / CLINICAL INFORMATION: Stroke symptoms. Right-sided weakness. TECHNIQUE: All CT scans at this location are performed using CT dose reduction for ALARA by means of automated e xposure control. COMPARISON: Head CT 08/07/2019, 07/14/2018 and MRI brain 06/28/2018. FINDINGS: HEMORRHAGE: No evidence of intracranial hemorrhage or extra-axial fluid collection. EXTRA-AXIAL SPACES: Cortical sulci, sylvian fissures and basilar cisterns have an unremarkable appear ance. VENTRICULAR SYSTEM: The ventricular system is of normal size and configuration. CEREBRAL PARENCHYMA: No areas of abnormal brain parenchymal attenuation are identified. There is no i ndication of recent infarction. MIDLINE SHIFT OR HERNIATION: There is no mass effect. CEREBELLUM / BRAINSTEM: Brainstem and cerebellum have an unremarkable appearance. INTRACRANIAL VESSELS:No abnormalities are identified on this noncontrast head CT. ORBITS: visualized portions of the orbits have an unremarkable appearance. SOFT TISSUES of HEAD: No significant abnormality. CALVARIUM: Evaluation of bone windows reveals no abnormalities. PARANASAL SINUSES / MASTOID AIR CELLS: Paranasal sinuses are free from inflammatory mucosal disease. Mastoid air cells are normally pneumatized. 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 IMPRESSION: 1. No significant intercranial abnormality on CT head without contrast. Code stroke: I called a report of this study to Dr. Vela of the [facility] emergency department at about 1427 Central standard time. Signer Name: William Berger MD Signed: 08/29/2019 3:30 PM Workstation Name: [id number]
[2019-08-29 15:43] LABS: INR 1.05 (0.87-1.13)
[2019-08-29 15:44] LABS: Partial Thromboplastin Time 28.7 Sec. (24.2-36.6)
[2019-08-29 15:53] LABS: Thrombin Time 15.4 Sec. (15.1-19.6)
[2019-08-29 15:55] LABS: Alanine Aminotransferase 6 units/L (7-56); Albumin 4.5 g/dL (3.9-5); BUN/Creatinine Ratio 13; Blood Urea Nitrogen 8 mg/dL (7-17); Calcium 9.7 mg/dL (8.4-10.2); Hemolysis Index 6
[2019-08-29 15:57] LABS: Creatine Kinase MB < 1.0 ng/mL (0.0-4.0)
--- NOTE | 2019-08-29 17:38 | Magnetic Resonance Report ---
MRI BRAIN WITHOUT CONTRAST INDICATION / CLINICAL INFORMATION: cva symptoms.. Right-sided weakness. TECHNIQUE: Multiplanar, multisequence MR images of the brain were obtained. COMPARISON: CT 08/29/2019 and MRI brain 06/28/2018 FINDINGS: BRAIN / INTRACRANIAL CONTENTS: Ventricles and cortical sulci are normal in size and configuration. Th ere is no mass effect. No evidence of intracranial hemorrhage or extra-axial fluid collection is seen . No areas of abnormal brain parenchymal signal intensity are identified. There is no indication of r emote cortical infarction. Diffusion weighted scans are negative. There is no indication of acute isc hemic injury. The brainstem and cerebellum have an unremarkable appearance. CRANIOCERVICAL JUNCTION: No abnormalities are identified at the craniocervical junction. VASCULAR FLOW-VOIDS: Normal flow-voids are present within the major intracranial vessels. ORBITS: The orbits have an unremarkable appearance. SINUSES / MASTOIDS: There is no indication of inflammatory disease in the paranasal sinuses or mastoi d air cells. 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 The pineal cyst has enlarged slightly (7 mm to 9 mm) since baseline study but measures less than 1 cm in greatest dimension. IMPRESSION: 1. Small pineal cyst increased slightly in size in comparison to MRI brain 06/28/2018. 2. Otherwise normal MRI brain without contrast. No other interval changes are demonstrated. Signer Name: William Berger MD Signed: 08/29/2019 5:34 PM Workstation Name: [id number]
--- NOTE | 2019-08-29 17:50 | XRay Report ---
CHEST 1 VIEW 08/29/2019 5:25 PM INDICATION / CLINICAL INFORMATION: weak. COMPARISON: 08/07/2019 FINDINGS: SUPPORT DEVICES: None. HEART / MEDIASTINUM: No significant abnormality. LUNGS / PLEURA: No significant pulmonary or pleural abnormality. No pneumothorax. ADDITIONAL FINDINGS: No significant additional findings. IMPRESSION: 1. No acute findings. Signer Name: Chang Campbell MD Signed: 08/29/2019 5:45 PM Workstation Name: [id number]
[2019-08-29] MEDS ORDERED: diphenhydrAMINE 50 MG/ML VIAL IV ONE (17:55)
[2019-08-29] MEDS ORDERED: methylPREDNISolone Sod Succinate 125 MG/2 ML INJ IV ONE (17:55)
[2019-08-29] MEDS ORDERED: HYDROmorphone 1 MG/1 ML INJ IV ONE (17:55)
[2019-08-29] MEDS ORDERED: SODIUM CHLORIDE 0.9% 1000 ML 1,000 ML IV ONE (18:03)
[2019-08-29] MEDS ORDERED: ONDANSETRON 4 MG/2 ML INJ IV ONE (18:55)
[2019-08-29] MEDS ORDERED: VALPROATE SODIUM 500 MG in SODIUM CHLORIDE 0.9% 100 ML IV ONE (18:55)
[2019-08-29] MEDS ORDERED: HYDROmorphone 2 MG/1 ML INJ IV ONE (19:35)
[2019-08-29] MEDS ORDERED: ONDANSETRON 4 MG/2 ML INJ ONE (20:34)
[2019-08-29] MEDS ORDERED: PROMETHAZINE 25 MG TAB PO PRN (21:42)
[2019-08-29] MEDS ORDERED: NON-FORMULARY EACH (Oxycodone Hcl/Acetaminophen [Percocet 7.5/325 Mg] 1 EACH) PO PRN (21:42)
[2019-08-29] MEDS ORDERED: DIAZEPAM PO PRN (21:42)
[2019-08-29] MEDS ORDERED: ONDANSETRON 4 MG ODT TAB PO PRN (21:42)
[2019-08-29] MEDS ORDERED: SUMAtriptan SUCCINATE 6 MG/0.5 ML INJ SUB-Q PRN (21:42)
--- NOTE | 2019-08-29 21:42 | Event Note ---
Date: 08/29/19 See H/p in reports Complex migraine with R sided weakness. Opiod seeking behavior??
[2019-08-29] MEDS ORDERED: ONDANSETRON 4 MG/2 ML INJ IV PRN (21:45)
[2019-08-29] MEDS ORDERED: ACETAMINOPHEN 325 MG TAB PO PRN (21:45)
[2019-08-29] MEDS ORDERED: diazePAM 5 MG TAB PO PRN (21:56)
[2019-08-29] MEDS: D5W/0.9% NACL 1,000 ML IV SCH (22:41)
[2019-08-29] MEDS: KETOROLAC 30 MG/1 ML INJ IV PRN (22:42)
[2019-08-29] MEDS: BUTALB/ACETAMINOPHEN/CAFFEINE TAB PO PRN (22:43)
[2019-08-29] MEDS: FAMOTIDINE 20 MG TAB PO SCH (22:44)
[2019-08-29] MEDS: diphenhydrAMINE 25 MG CAP PO PRN (22:44)
[2019-08-30] MEDS: oxyCODONE /ACETAMINOPHEN 5-325MG TAB PO PRN ×2 (02:02→11:03)
[2019-08-30] MEDS: oxyCODONE 5 MG TAB PO PRN ×2 (02:07→11:03)
[2019-08-30] MEDS: dexAMETHasone 4 MG/ML VIAL IV SCH ×3 (02:36→12:00)
[2019-08-30] MEDS: BUTALB/ACETAMINOPHEN/CAFFEINE TAB PO PRN (05:13)
[2019-08-30] MEDS: diphenhydrAMINE 25 MG CAP PO PRN ×2 (05:14→11:11)
[2019-08-30] MEDS: KETOROLAC 30 MG/1 ML INJ IV PRN (05:14)
[2019-08-30 06:35] LABS: Basophils % (Auto) 0.1 % (0.0-1.8); Hematocrit 34.8 % (30.3-42.9); Hemoglobin 11.5 gm/dl (10.1-14.3); Lymphocytes # (Auto) 0.8 K/mm3 (1.2-5.4); Lymphocytes % (Auto) 10.9 % (13.4-35.0); Mean Corpuscular HGB Conc 33 % (30-34); Mean Corpuscular Volume 92 fl (79-97); Monocytes # (Auto) 0.1 K/mm3 (0.0-0.8); Monocytes % (Auto) 1.5 % (0.0-7.3); Platelet Count 342 K/mm3 (140-440); Red Blood Count 3.77 M/mm3 (3.65-5.03); Red Cell Distribution Width 13.6 % (13.2-15.2)
[2019-08-30 06:59] LABS: Alanine Aminotransferase 6 units/L (7-56); Albumin 3.9 g/dL (3.9-5); BUN/Creatinine Ratio 17; Blood Urea Nitrogen 10 mg/dL (7-17); Calcium 8.9 mg/dL (8.4-10.2); Hemolysis Index 2
[2019-08-30] MEDS ORDERED: LORazepam 2 MG/ML VIAL IV PRN (08:14)
[2019-08-30] MEDS: D5W/0.9% NACL 1,000 ML IV SCH ×2 (08:26→10:51)
[2019-08-30] MEDS ORDERED: ASPIRIN 325 MG TAB PO SCH (10:00)
[2019-08-30] MEDS: FAMOTIDINE 20 MG TAB PO SCH (10:51)
--- NOTE | 2019-08-30 11:48 | Discharge Summary ---
Providers - Providers Date of Admission: 08/29/19 19:30 Date of discharge: 08/30/19 Attending physician: JON BILLY Primary care physician: LUIS FERNANDO STEVENS Hospitalization Condition: Critical Pertinent studies: MRI brain and head CT were negative Hospital course: Patient was admitted for severe headache with right sided weakness in both right upper extremity and right lower extremity. MRI of the brain was negative. Overnight patient improved and is able to walk. The weakness is disappeared. Patient responding to Fioricet and IV Decadron and Percocet. Patient to be discharged on Percocet. And Imitrex. Discharge diagnosis complex migraine with right-sided weakness. Hyperlipidemia. Chronic pain. Follow-up with neurology. Disposition: TO HOME OR SELFCARE Core Measure Documentation - Palliative Care Palliative Care/ Comfort Measures: Not Applicable - Core Measures Any of the following diagnoses?: none Exam - Constitutional Vitals: Temp Pulse Resp BP Pulse Ox 97.4 F L 81 18 114/57 97 08/30/19 08:19 08/30/19 08:19 08/30/19 08:19 08/30/19 08:19 08/30/19 08:19 General appearance: Present: no acute distress, well-nourished - EENT Eyes: Present: PERRL ENT: hearing intact, clear oral mucosa - Neck Neck: Present: supple, normal ROM - Respiratory Respiratory effort: normal Respiratory: bilateral: CTA - Cardiovascular Heart Sounds: Present: S1 & S2. Absent: rub, click - Extremities Extremities: pulses symmetrical, No edema Peripheral Pulses: within normal limits - Abdominal General gastrointestinal: Present: soft, non-tender, non-distended, normal bowel sounds Female genitourinary: Present: normal - Rectal Rectal Exam: deferred - Integumentary Integumentary: Present: clear, warm, dry - Musculoskeletal Musculoskeletal: gait normal, strength equal bilaterally - Psychiatric Psychiatric: appropriate mood/affect, intact judgment & insight - Neurologic Neurologic: CNII-XII intact, moves all extremities - Allied Health Allied health notes reviewed: nursing, case management Plan Activity: no restrictions Diet: regular Follow up with: LUIS FERNANDO STEVENS MD [Primary Care Provider] - 7 Days MIL GOODRICH MD [Staff Physician] - 7 Days
[2019-08-30 12:31] VITALS: BP 91/44
--- NOTE | 2019-08-30 12:36 | History and Physical Report ---
CHIEF COMPLAINT: 1. Severe headache. 2. Right-sided weakness. 3. Slurred speech since 2 days. HISTORY OF PRESENT ILLNESS: A 44-year-old female with history of complex migraine and recurrent paralysis on the right side, comes in for right-sided weakness, had a severe headache and slurred speech. The patient says the headache is equal to pain 10/10. Her headache is better with rest and worse with light, sound and movement. Also, the patient has stiff neck. No fever or chills. As per , the patient had this episode recurrent in the past. Right facial numbness, right arm and right leg weakness. PAST MEDICAL HISTORY: Significant for hyperlipidemia, migraine attacks and chronic pain. CURRENT MEDICATIONS: On chart. PAST SURGICAL HISTORY: Partial removal of cervix, two sinus surgeries and hysterectomy and tonsil surgery. FAMILY HISTORY: No significant family history. SOCIAL HISTORY: Does not smoke. REVIEW OF SYSTEMS: Significant for severe left-sided headache, which is 10 on a scale of 1-10, intermittent and photophobia, phonophobia present and also has right-sided upper extremity and right-sided lower extremity weakness. Otherwise, review of systems is negative. PHYSICAL EXAMINATION: GENERAL: Young female, middle aged, cooperative during examination. VITAL SIGNS: Blood pressure is 117/62 and repeat is 98/45, pulse is 86, respiratory rate is 18, sats are 98%. HEENT: Unremarkable. Pupils equal and reactive. NECK: Supple, no lymphadenopathy, no thyromegaly. No facial palsy. LUNGS: Clear to auscultation and percussion. Good air entry. CARDIOVASCULAR SYSTEM: S1, S2 heard. No gallop, no murmur, no rub. Apical impulse in left fifth intercostal space and midclavicular line. ABDOMEN: Soft and benign. No hepatosplenomegaly. No guarding, no rigidity. Hernial orifices are normal. EXTREMITIES: Good pedal pulses. CENTRAL NERVOUS SYSTEM: Right upper extremity, 4/5 weakness present. Right lower extremity, 3/5 power present. Unable to walk. LABS AND IMAGING STUDIES: CBC is normal. Electrolytes are normal. Glucose is 103, slightly high. Creatinine is 0.6. CK-MB is normal. The patient had a head CT, which showed no focal infarcts. No significant intracranial abnormalities. Brain MRI shows small cranial cyst, increased slightly in size in comparison to MRI brain, otherwise normal MRI brain without contrast. ASSESSMENT AND PLAN: 1. Complex migraine with right-sided weakness. The patient is being admitted because of the right-sided lower extremity weakness. The patient is being admitted in observation status. No acute CVA ruled out. Continue Fioricet and Imitrex. Also Decadron IV .No IV Dilaudid. 2. Hyperlipidemia. Continue atorvastatin. 3. Insomnia. Continue diazepam. 4. Nausea and vomiting. Continue Zofran ODT q. 8 hours p.r.n. 5. Deep venous thrombosis prophylaxis, heparin 5000 q. 12. No Neurology consult at this point. JOB# [id number] DRAKE/LINO DOAN
[2019-08-30] MEDS ORDERED: HYDROmorphone 1 MG/1 ML INJ IV PRN (15:21)
[2019-08-30] MEDS ORDERED: diphenhydrAMINE 50 MG/ML VIAL IV ONE (15:21)
[2019-08-30] MEDS ORDERED: PROCHLORPERAZINE EDISYLATE 10 MG/2 ML VIAL IV ONE (15:22)
== END 2019-08-30 16:48 | disposition home or self-care (01) ==
LOC: ED 13:38 → 4A 19:30
PROVIDERS: ADMIT Internal Medicine; ATTEND Internal Medicine
DX: G43.909 Migraine, unspecified, not intractable, without status migrainosus (principal); G89.29 Other chronic pain; R53.1 Weakness; E78.5 Hyperlipidemia, unspecified; G47.00 Insomnia, unspecified; R11.2 Nausea with vomiting, unspecified; Z79.82 Long term (current) use of aspirin; Z87.442 Personal history of urinary calculi
CPT/HCPCS: 36415; 70450; 70551; 71045; 80053; 82550; 82553; 82962; 84484; 84702; 85025; 85610; 85670; 85730; 93005; 93010; 96361; 96372; 96374; 96375; 96376; 99291; A9270; G0378; J0780; J1100; J1170; J1200; J1885; J2060; J2405; J2930; J7030; J7042

== ENCOUNTER 2019-11-30 18:26 | Emergency (ER) | payer BC, MEDICARE ==
[2019-11-30 18:53] LABS: Basophils # (Auto) 0.1 K/mm3 (0.0-0.1); Basophils % (Auto) 0.8 % (0.0-1.8); Eosinophils # (Auto) 0.1 K/mm3 (0.0-0.4); Eosinophils % (Auto) 1.2 % (0.0-4.3); Hematocrit 43.1 % (30.3-42.9); Hemoglobin 14.3 gm/dl (10.1-14.3); Lymphocytes # (Auto) 2.6 K/mm3 (1.2-5.4); Lymphocytes % (Auto) 33.5 % (13.4-35.0); Mean Corpuscular HGB Conc 33 % (30-34); Mean Corpuscular Volume 88 fl (79-97); Monocytes # (Auto) 0.5 K/mm3 (0.0-0.8); Monocytes % (Auto) 6.1 % (0.0-7.3); Platelet Count 417 K/mm3 (140-440); Red Blood Count 4.88 M/mm3 (3.65-5.03); Red Cell Distribution Width 15.1 % (13.2-15.2)
[2019-11-30] MEDS ORDERED: dexAMETHasone 20 MG/5 ML VIAL IV ONE (18:53)
[2019-11-30] MEDS ORDERED: LORazepam 2 MG/ML VIAL IV ONE (18:53)
[2019-11-30] MEDS ORDERED: KETOROLAC 30 MG/1 ML INJ IV ONE (18:53)
[2019-11-30] MEDS ORDERED: ONDANSETRON 4 MG/2 ML INJ IV ONE (18:59)
--- NOTE | 2019-11-30 18:59 | Emergency Department Report ---
ED Headache HPI - General Chief Complaint: Headache Stated Complaint: MIRGAINE Time Seen by Provider: 11/30/19 18:48 Source: patient, family, old records Exam Limitations: no limitations - History of Present Illness Initial Comments: Ms. Mejia is a 44 yo female with hx of opioid dependence, hemiplegic migraine and seizures who presents with eyes rolling into the back of her head 3 different occausions. She has hx of seizures on Lamitcal. Boyfriend was concerned because this seizure activity was different. She has had a migraine headache for 30 days straight. Current migraine management regimen is a monthly subcutaneous injection. She also uses Percocet for breakthrough pain. Percocet has not helped this current headache. Botox injection previously controlled her migraine headaches. However her former neurologist recently retired. She is followed by Dr. Uribe neurology. She is followed by Dr. Pelletier her PCP. Timing/Duration: other (30 days headache) Quality: severe, throbbing Head Injury Location: frontal, temporal Recent Head Trauma: chronic headaches Modifying Factors: improves with: exposure to light Associated Symptoms: other (Seizure) Allergies/Adverse Reactions: Allergies levetiracetam [From Keppra] Allergy (Intermediate, Verified 08/29/19 13:40) Vomiting divalproex sodium [From Depakote] Allergy (Verified 08/29/19 13:40) Unknown doxycycline Allergy (Verified 08/29/19 13:40) Vomiting metoclopramide HCl [From Reglan] Allergy (Verified 08/29/19 13:40) Unknown Penicillins Allergy (Verified 08/29/19 13:40) Unknown sumatriptan [From Imitrex] Allergy (Verified 08/29/19 13:40) Unknown Home Medications: Ambulatory Orders Diazepam [Valium] 1 tab PO BID PRN #6 tablet 09/01/18 Ondansetron [Zofran ODT TAB] 4 mg PO Q8HR PRN #20 tab.rapdis 09/16/18 Butalb/Acetamin/Caff 50-325-40 [Fioricet 50-325-40] 1 tab PO Q6HR PRN #14 tab 02/07/19 Promethazine [Phenergan] 25 mg PO Q6HR PRN #24 tab 02/07/19 diphenhydrAMINE [Benadryl CAP] 25 mg PO Q6HR PRN #20 capsule 05/25/19 predniSONE [Deltasone] 20 mg PO QDAY #5 tab 05/25/19 Hydromorphone HCl [Dilaudid] 4 mg PO Q12H PRN 10 Days #15 tablet 08/30/19 Prochlorperazine [Compazine] 10 mg PO BID PRN #15 tablet 08/30/19 diphenhydrAMINE [Benadryl CAP] 50 mg PO Q12H PRN #20 capsule 08/30/19 ED Review of Systems ROS: Stated complaint: MIRGAINE Other details as noted in HPI Comment: All other systems reviewed and negative Constitutional: denies: fever, malaise Respiratory: denies: cough, shortness of breath Gastrointestinal: nausea. 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 tonsils - Social History Smoking Status: Never Smoker Substance Use Type: None - Medications Home Medications: Home Medications Medication Instructions Recorded Confirmed Last Taken Type Diazepam [Valium] 1 tab PO BID PRN #6 tablet 09/01/18 08/30/19 Unknown Rx Ondansetron [Zofran ODT TAB] 4 mg PO Q8HR PRN #20 tab.rapdis 09/16/18 08/30/19 Unknown Rx Butalb/Acetamin/Caff 50-325-40 1 tab PO Q6HR PRN #14 tab 02/07/19 08/30/19 Unknown Rx [Fioricet 50-325-40] Promethazine [Phenergan] 25 mg PO Q6HR PRN #24 tab 02/07/19 08/30/19 Unknown Rx diphenhydrAMINE [Benadryl CAP] 25 mg PO Q6HR PRN #20 capsule 05/25/19 08/30/19 Unknown Rx predniSONE [Deltasone] 20 mg PO QDAY #5 tab 05/25/19 08/30/19 Unknown Rx Hydromorphone HCl [Dilaudid] 4 mg PO Q12H PRN 10 Days #15 tablet 08/30/19 Unknown Rx Prochlorperazine [Compazine] 10 mg PO BID PRN #15 tablet 08/30/19 Unknown Rx diphenhydrAMINE [Benadryl CAP] 50 mg PO Q12H PRN #20 capsule 08/30/19 Unknown Rx ED Physical Exam - General Limitations: No Limitations General appearance: alert, in no apparent distress, other (Wearing sunglasses smiling) - Head Head exam: Present: atraumatic, normocephalic - Eye Eye exam: Present: normal appearance - ENT ENT exam: Present: mucous membranes moist - Neck Neck exam: Present: normal inspection, full ROM - Respiratory Respiratory exam: Present: normal lung sounds bilaterally. Absent: respiratory distress, wheezes, rales, rhonchi - Cardiovascular Cardiovascular Exam: Present: regular rate, normal rhythm, normal heart sounds. Absent: systolic murmur, diastolic murmur, rubs, gallop - GI/Abdominal GI/Abdominal exam: Present: soft, normal bowel sounds. Absent: distended, tenderness, guarding, rebound - Extremities Exam Extremities exam: Present: normal inspection - Back Exam Back exam: Present: normal inspection - Neurological Exam Neurological exam: Present: alert, oriented X3, CN II-XII intact, normal gait - Expanded Neurological Exam Expanded Patient oriented to: Present: person, place, time Speech: Present: fluid speech Cerebellar function: Finger to Nose: Normal Sensory exam: Upper Extremity Light Touch: Normal Motor strength exam: RUE: 5, LUE: 5, RLE: 5, LLE: 5 Best Eye Response (Mulberry): (4) open spontaneously Best Motor Response ([place]): (6) obeys commands Best Verbal Response (Joanne): (5) oriented [place] Total: 15 - Psychiatric Psychiatric exam: Present: normal affect, normal mood - Skin Skin exam: Present: warm, dry, intact, normal color. Absent: rash ED Course Vital Signs 11/30/19 11/30/19 11/30/19 19:49 19:52 20:14 Temperature 98.6 F Pulse Rate 72 Respiratory 20 20 20 Rate Blood Pressure 113/68 [Left] O2 Sat by Pulse 99 Oximetry ED Medical Decision Making - Lab Data Result diagrams: 11/30/19 18:43 11/30/19 18:43 - Radiology Data Radiology results: report reviewed CT head without contrast: No acute intracranial hemorrhage or parenchymal abnormality - Medical Decision Making 1. Chronic migraine headache typical for patient: She has home regimen provided by her neurologist. She received ketorolac Decadron Zofran in the emergency department 2. Seizure like activity: CT head unchanged from previous. She received IV lorazepam. Normal neurological exam. Labs obtained include CBC chemistry PT PTT troponin all within normal limits Boyfriend became agitated when I refused to provide opioid type medication. It is well documented that patient has on previous occasions exhibited drug-seeking behavior as well as malingering. She has been flagged in the [place] prescription monitoring database. Critical care attestation.: If time is entered above; I have spent that time in minutes in the direct care of this critically ill patient, excluding procedure time. ED Disposition Clinical Impression: Migraine headache Disposition: DC-01 TO HOME OR SELFCARE Is pt being admited?: No Does the pt Need Aspirin: No Condition: Stable Instructions: Migraine Headache (ED) Referrals: PRIMARY CARE, [Primary Care Provider] - [facility]
[2019-11-30 19:05] LABS: INR 0.94 (0.87-1.13); Partial Thromboplastin Time 27.3 Sec. (24.2-36.6)
[2019-11-30 19:14] LABS: BUN/Creatinine Ratio 19; Blood Urea Nitrogen 13 mg/dL (7-17); Calcium 10.3 mg/dL (8.4-10.2); Hemolysis Index 8
[2019-11-30] MEDS ORDERED: BUTALB/ACETAMINOPHEN/CAFFEINE TAB PO ONE (19:27)
--- NOTE | 2019-11-30 19:28 | Cat Scan Report ---
CT head without contrast INDICATION : Headache with speech deficit. Possible CVA. TECHNIQUE: Axial imaging performed from the skull apex through the skull base without the use of con trast. All CT examinations performed at this facility utilize dose modulation, iterative reconstruct ion or weight-based dosing, when appropriate, to reduce radiation dose to as low as reasonably achiev able. COMPARISON: None FINDINGS: No acute intracranial hemorrhage or parenchymal abnormality. Ventricles are normal in si ze and appear symmetric. 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 Soft tissues including the orb its appear normal. No acute osseous abnormality. Sinuses and mastoid air cells are clear. IMPRESSION: No acute intracranial pathology. 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 Signer Name: Alen Thomas MD Signed: 11/30/2019 7:23 PM Workstation Name: [id number]
[2019-11-30] MEDS ORDERED: diphenhydrAMINE 50 MG/ML VIAL IV ONE (19:43)
[2019-11-30 21:40] VITALS: BP 118/67
== END 2019-11-30 21:47 | disposition home or self-care (01) ==
LOC: ED 18:26
DX: G43.909 Migraine, unspecified, not intractable, without status migrainosus (principal); Z79.899 Other long term (current) drug therapy; Z88.8 Allergy status to other drugs, medicaments and biological substances; Z90.710 Acquired absence of both cervix and uterus; Z98.890 Other specified postprocedural states; Z86.73 Personal history of transient ischemic attack (TIA), and cerebral infarction without residual deficits; Z86.69 Personal history of other diseases of the nervous system and sense organs; Z87.442 Personal history of urinary calculi
CPT/HCPCS: 36415; 70450; 80048; 82962; 84484; 85025; 85610; 85670; 85730; 96374; 96375; 99285; J1100; J1200; J1885; J2060; J2405

== ENCOUNTER 2020-04-28 14:31 | Emergency (ER) | payer BC, MEDICARE ==
[2020-04-28] MEDS ORDERED: SODIUM CHLORIDE 0.9% 1000 ML 1,000 ML IV ONE (17:25)
[2020-04-28] MEDS ORDERED: diphenhydrAMINE 50 MG/ML VIAL IV ONE (17:25)
[2020-04-28] MEDS ORDERED: methylPREDNISolone Sod Succinate 125 MG/2 ML INJ IV ONE (17:25)
[2020-04-28] MEDS ORDERED: PROCHLORPERAZINE EDISYLATE 10 MG/2 ML VIAL IV ONE (17:26)
[2020-04-28] MEDS ORDERED: BUTALB/ACETAMINOPHEN/CAFFEINE TAB PO ONE (17:26)
[2020-04-28] MEDS ORDERED: HALOPERIDOL LACTATE 5 MG/1 ML INJ IV ONE (17:29)
[2020-04-28 17:49] VITALS: BP 102/36
--- NOTE | 2020-04-28 17:52 | Emergency Department Report ---
ED General Adult HPI - General Chief complaint: Headache Stated complaint: HM MIGRAINE Time Seen by Provider: 04/28/20 17:24 Source: patient Mode of arrival: Ambulatory Limitations: No Limitations - History of Present Illness Initial comments: The patient presents to the emergency department with a chief complaint of complicated migraines with nonepileptic seizures secondary to the migraines. Patient states she has had a consistent throbbing headache for the last 17 weeks has not come to the hospital for help due her concern to be exposed to proctor virus. While checking in the patient had an episode of seizure-like activity in the lobby and was brought immediately to room 21. Patient states the medications at home have not helped a headache. Patient denies chest pain, shortness breath, or abdominal pain. Patient states is not the worst headache of her life. -: month(s) Location: head Radiation: non-radiation Severity scale (0 -10): 8 Quality: aching, other (Throbbing) Improves with: none Worsens with: none Associated Symptoms: denies other symptoms Treatments Prior to Arrival: none - Related Data Previous Rx's Medication Instructions Recorded Last Taken Type Diazepam [Valium] 1 tab PO BID PRN #6 tablet 09/01/18 Unknown Rx Ondansetron [Zofran ODT TAB] 4 mg PO Q8HR PRN #20 tab.rapdis 09/16/18 Unknown Rx Butalb/Acetamin/Caff 50-325-40 1 tab PO Q6HR PRN #14 tab 02/07/19 Unknown Rx [Fioricet 50-325-40] Promethazine [Phenergan] 25 mg PO Q6HR PRN #24 tab 02/07/19 Unknown Rx diphenhydrAMINE [Benadryl CAP] 25 mg PO Q6HR PRN #20 capsule 05/25/19 Unknown Rx predniSONE [Deltasone] 20 mg PO QDAY #5 tab 05/25/19 Unknown Rx Hydromorphone HCl [Dilaudid] 4 mg PO Q12H PRN 10 Days #15 tablet 08/30/19 Unknown Rx Prochlorperazine [Compazine] 10 mg PO BID PRN #15 tablet 08/30/19 Unknown Rx diphenhydrAMINE [Benadryl CAP] 50 mg PO Q12H PRN #20 capsule 08/30/19 Unknown Rx Allergies Allergy/AdvReac Type Severity Reaction Status Date / Time levetiracetam [From Keppra] Allergy Intermediate Vomiting Verified 08/29/19 13:40 divalproex sodium Allergy Unknown Verified 08/29/19 13:40 [From Depakote] doxycycline Allergy Vomiting Verified 08/29/19 13:40 metoclopramide HCl Allergy Unknown Verified 08/29/19 13:40 [From Reglan] Penicillins Allergy Unknown Verified 08/29/19 13:40 sumatriptan [From Imitrex] Allergy Unknown Verified 08/29/19 13:40 ED Review of Systems ROS: Stated complaint: HM MIGRAINE Other details as noted in HPI Constitutional: denies: chills, fever Eyes: denies: eye pain, eye discharge, vision change ENT: denies: ear pain, throat pain Respiratory: denies: cough, shortness of breath, wheezing Cardiovascular: denies: chest pain, palpitations Endocrine: no symptoms reported Gastrointestinal: denies: abdominal pain, nausea, diarrhea Genitourinary: denies: urgency, dysuria, discharge Musculoskeletal: denies: back pain, joint swelling, arthralgia Skin: denies: rash, lesions Neurological: headache. 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 tonsils - Social History Substance Use Type: Prescribed - Medications Home Medications: Home Medications Medication Instructions Recorded Confirmed Last Taken Type Diazepam [Valium] 1 tab PO BID PRN #6 tablet 09/01/18 08/30/19 Unknown Rx Ondansetron [Zofran ODT TAB] 4 mg PO Q8HR PRN #20 tab.rapdis 09/16/18 08/30/19 Unknown Rx Butalb/Acetamin/Caff 50-325-40 1 tab PO Q6HR PRN #14 tab 02/07/19 08/30/19 Unknown Rx [Fioricet 50-325-40] Promethazine [Phenergan] 25 mg PO Q6HR PRN #24 tab 02/07/19 08/30/19 Unknown Rx diphenhydrAMINE [Benadryl CAP] 25 mg PO Q6HR PRN #20 capsule 05/25/19 08/30/19 Unknown Rx predniSONE [Deltasone] 20 mg PO QDAY #5 tab 05/25/19 08/30/19 Unknown Rx Hydromorphone HCl [Dilaudid] 4 mg PO Q12H PRN 10 Days #15 tablet 08/30/19 Unknown Rx Prochlorperazine [Compazine] 10 mg PO BID PRN #15 tablet 08/30/19 Unknown Rx diphenhydrAMINE [Benadryl CAP] 50 mg PO Q12H PRN #20 capsule 08/30/19 Unknown Rx ED Physical Exam - General Limitations: No Limitations General appearance: alert, in no apparent distress - Head Head exam: Present: atraumatic, normocephalic - Eye Eye exam: Present: normal appearance, PERRL, EOMI - ENT ENT exam: Present: mucous membranes moist - Neck Neck exam: Present: normal inspection - Respiratory Respiratory exam: Present: normal lung sounds bilaterally. Absent: respiratory distress - Cardiovascular Cardiovascular Exam: Present: regular rate, normal rhythm. Absent: systolic murmur, diastolic murmur, rubs, gallop - GI/Abdominal GI/Abdominal exam: Present: soft, normal bowel sounds. Absent: distended, tenderness - Extremities Exam Extremities exam: Present: normal inspection - Back Exam Back exam: Present: normal inspection - Neurological Exam Neurological exam: Present: alert, oriented X3, CN II-XII intact. Absent: motor sensory deficit - Psychiatric Psychiatric exam: Present: normal affect, normal mood - Skin Skin exam: Present: warm, dry, intact, normal color. Absent: rash ED Course Vital Signs 04/28/20 04/28/20 14:41 17:47 Temperature 98.2 F 98.2 F Pulse Rate 91 H 77 Respiratory 14 18 Rate Blood Pressure 111/58 Blood Pressure 102/36 [Left] O2 Sat by Pulse 98 98 Oximetry ED Medical Decision Making - Radiology Data Radiology results: report reviewed - Medical Decision Making Patient received IV medications for headache with significant improvement. Critical care attestation.: If time is entered above; I have spent that time in minutes in the direct care of this critically ill patient, excluding procedure time. ED Disposition Clinical Impression: Complicated migraine Disposition: DC-01 TO HOME OR SELFCARE Is pt being admited?: No Does the pt Need Aspirin: No Condition: Stable Instructions: Migraine Headache (ED) Additional Instructions: return if worse Referrals: [facility] [Provider Group] - 3-5 Days [facility] [Provider Group] - 3-5 Days Time of Disposition: 19:12
--- NOTE | 2020-04-28 19:06 | Cat Scan Report ---
CT BRAIN: 04/28/2020 INDICATION / CLINICAL INFORMATION: headache. COMPARISON: Prior head CT exams were performed here on 11/30/2019 08/29/2019 08/07/2019 12/09/2018 07/14/2018 07/02/2018 06/28/18, 05/26/2018. Prior brain MRI was performed 08/29/2019, 06/28/2018. Prior brain CT angiograms were performed 08/07/2019, 06/28/2018. FINDINGS: BRAIN/INTRACRANIAL STRUCTURES: Unenhanced CT images of the brain demonstrate no evidence of intracran ial abnormality. Ventricles and sulci remain normal in size and shape. There is no evidence of acute ischemic injury, hemorrhage, or mass. There are no abnormal extra-axial fluid collections. EXTRACRANIAL STRUCTURES: Unremarkable. IMPRESSION: Negative unenhanced CT of the brain. No change when compared to prior exams. All CT scans at this location are performed using dose reduction to ALARA by means of automated expos ure control. Signer Name: Papo Pedersen MD Signed: 04/28/2020 7:02 PM Workstation Name: [id number]
[2020-04-28] MEDS ORDERED: HYDROcodone/ACETAMINOPHEN 10-325MG TAB PO ONE (19:10)
== END 2020-04-28 20:17 | disposition home or self-care (01) ==
LOC: ED 14:31
DX: G43.109 Migraine with aura, not intractable, without status migrainosus (principal); R56.9 Unspecified convulsions; Z87.442 Personal history of urinary calculi; Z98.890 Other specified postprocedural states; Z90.710 Acquired absence of both cervix and uterus; Z86.73 Personal history of transient ischemic attack (TIA), and cerebral infarction without residual deficits; Z79.899 Other long term (current) drug therapy; Z88.8 Allergy status to other drugs, medicaments and biological substances
CPT/HCPCS: 70450; 96361; 96374; 96375; 99283; J0780; J1200; J1630; J2930; J7030

== ENCOUNTER 2020-05-30 15:23 | Emergency (ER) | payer BC, MEDICARE ==
--- NOTE | 2020-05-30 15:43 | Emergency Department Report ---
Blank Doc - Documentation Documentation: 44-year-old female that presents with left ankle and foot pain s/p fall. This initial assessment/diagnostic orders/clinical plan/treatment(s) is/are subject to change based on patient's health status, clinical progression and re- assessment by fellow clinical providers in the ED. Further treatment and workup at subsequent clinical providers discretion. Patient/guardians urged not to elope from the ED as their condition may be serious if not clinically assessed and managed. Initial orders include: 1- Patient sent to [facility] for further evaluation and treatment 2- xrays
[2020-05-30 15:45] VITALS: BP 104/45
--- NOTE | 2020-05-30 16:22 | XRay Report ---
LEFT FOOT 3 VIEWS INDICATION / CLINICAL INFORMATION: Left foot pain after fall. COMPARISON: None available. FINDINGS: BONES/JOINT(S): No acute fracture or subluxation. No significant degenerative changes. SOFT TISSUES: No significant abnormality. ADDITIONAL FINDINGS: None. Signer Name: Chang Campbell MD Signed: 05/30/2020 4:18 PM Workstation Name: [id number]
--- NOTE | 2020-05-30 16:22 | XRay Report ---
LEFT ANKLE 3 VIEWS INDICATION / CLINICAL INFORMATION: Left ankle pain after fall. COMPARISON: None available. FINDINGS: BONES/JOINT(S): No acute fracture or subluxation. No significant degenerative changes. SOFT TISSUES: No significant abnormality. ADDITIONAL FINDINGS: None. Signer Name: Chang Campbell MD Signed: 05/30/2020 4:17 PM Workstation Name: [id number]
--- NOTE | 2020-05-30 16:43 | Emergency Department Report ---
ED Lower Extremity HPI - General Chief Complaint: Extremity Injury, Lower Stated Complaint: LEFT FOOT SWOLLEN Time Seen by Provider: 05/30/20 15:41 Source: patient Mode of arrival: Ambulatory Limitations: No Limitations - History of Present Illness Initial Comments: This is a 44-year-old female nontoxic, well nourished in appearance, no acute signs of distress presents to the ED with c/o of left ankle and foot pain status post trip and fall this morning. Patient denies any other trauma or injuries. Denies any neck pains or back pains. Denies decreased ROM, joint swelling, redness, or abnormal gait. Denies any fever, chills, nausea, vomiting, headache, stiff neck, chest pain or shortness of breath. Patient denies any numbness or tingling. MD Complaint: ankle injury, foot injury, fall -: days(s) Injury: Ankle: Left, Foot: Left Severity: mild Severity scale (0 -10): 8 Improves With: immobilization Worsens With: weight bearing, movement, palpation Associated Symptoms: able to partially bear weight, ambulatory. denies: snap/pop sensation, swelling, numbness, tingling, unable to bear weight - Related Data Previous Rx's Medication Instructions Recorded Last Taken Type Diazepam [Valium] 1 tab PO BID PRN #6 tablet 09/01/18 Unknown Rx Ondansetron [Zofran ODT TAB] 4 mg PO Q8HR PRN #20 tab.rapdis 09/16/18 Unknown Rx Butalb/Acetamin/Caff 50-325-40 1 tab PO Q6HR PRN #14 tab 02/07/19 Unknown Rx [Fioricet 50-325-40] Promethazine [Phenergan] 25 mg PO Q6HR PRN #24 tab 02/07/19 Unknown Rx diphenhydrAMINE [Benadryl CAP] 25 mg PO Q6HR PRN #20 capsule 05/25/19 Unknown Rx predniSONE [Deltasone] 20 mg PO QDAY #5 tab 05/25/19 Unknown Rx Hydromorphone HCl [Dilaudid] 4 mg PO Q12H PRN 10 Days #15 tablet 08/30/19 Unknown Rx Prochlorperazine [Compazine] 10 mg PO BID PRN #15 tablet 08/30/19 Unknown Rx diphenhydrAMINE [Benadryl CAP] 50 mg PO Q12H PRN #20 capsule 08/30/19 Unknown Rx Butalb/Acetamin/Caff 50-325-40 1 tab PO Q6HR PRN #24 tab 04/28/20 Unknown Rx [Fioricet] Allergies Allergy/AdvReac Type Severity Reaction Status Date / Time levetiracetam [From Keppra] Allergy Intermediate Vomiting Verified 08/29/19 13:40 divalproex sodium Allergy Unknown Verified 08/29/19 13:40 [From Depakote] doxycycline Allergy Vomiting Verified 08/29/19 13:40 lamotrigine [From Lamictal] Allergy Unknown Verified 05/30/20 15:42 metoclopramide HCl Allergy Unknown Verified 08/29/19 13:40 [From Reglan] Penicillins Allergy Unknown Verified 08/29/19 13:40 sumatriptan [From Imitrex] Allergy Unknown Verified 08/29/19 13:40 ED Review of Systems ROS: Stated complaint: LEFT FOOT SWOLLEN Other details as noted in HPI Comment: All other systems reviewed and negative Constitutional: denies: chills, fever Eyes: denies: eye pain, eye discharge, vision change ENT: denies: ear pain, throat pain Respiratory: denies: cough, shortness of breath, wheezing Cardiovascular: denies: chest pain, palpitations Endocrine: no symptoms reported Gastrointestinal: denies: abdominal pain, nausea, diarrhea Genitourinary: denies: urgency, dysuria, discharge Musculoskeletal: denies: back pain, joint swelling, arthralgia Skin: denies: rash, lesions Neurological: denies: headache, weakness, paresthesias Psychiatric: denies: anxiety, depression Hematological/Lymphatic: denies: easy bleeding, easy bruising ED Past Medical Hx - Past Medical History Hx CVA: Yes (2014 Slight left sided deficits.) Hx Heart Attack/AMI: No Hx Congestive Heart Failure: No Hx Diabetes: No Hx Headaches / Migraines: Yes ( migraine headaches) Hx Seizures: Yes Hx Kidney Stones: Yes Hx Asthma: No Hx COPD: No Additional medical history: 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 tonsils - Social History Smoking Status: Never Smoker Substance Use Type: None - Medications Home Medications: Home Medications Medication Instructions Recorded Confirmed Last Taken Type Diazepam [Valium] 1 tab PO BID PRN #6 tablet 09/01/18 08/30/19 Unknown Rx Ondansetron [Zofran ODT TAB] 4 mg PO Q8HR PRN #20 tab.rapdis 09/16/18 08/30/19 Unknown Rx Butalb/Acetamin/Caff 50-325-40 1 tab PO Q6HR PRN #14 tab 02/07/19 08/30/19 Unknown Rx [Fioricet 50-325-40] Promethazine [Phenergan] 25 mg PO Q6HR PRN #24 tab 02/07/19 08/30/19 Unknown Rx diphenhydrAMINE [Benadryl CAP] 25 mg PO Q6HR PRN #20 capsule 05/25/19 08/30/19 Unknown Rx predniSONE [Deltasone] 20 mg PO QDAY #5 tab 05/25/19 08/30/19 Unknown Rx Hydromorphone HCl [Dilaudid] 4 mg PO Q12H PRN 10 Days #15 tablet 08/30/19 Unknown Rx Prochlorperazine [Compazine] 10 mg PO BID PRN #15 tablet 08/30/19 Unknown Rx diphenhydrAMINE [Benadryl CAP] 50 mg PO Q12H PRN #20 capsule 08/30/19 Unknown Rx Butalb/Acetamin/Caff 50-325-40 1 tab PO Q6HR PRN #24 tab 04/28/20 Unknown Rx [Fioricet] ED Physical Exam - General Limitations: No Limitations General appearance: alert, in no apparent distress - Head Head exam: Present: atraumatic, normocephalic - Eye Eye exam: Present: normal appearance - Neck Neck exam: Present: normal inspection, full ROM. Absent: tenderness, meningismus, lymphadenopathy - Respiratory Respiratory exam: Absent: respiratory distress - Cardiovascular Cardiovascular Exam: Present: regular rate - Extremities Exam Extremities exam: Present: normal inspection, full ROM, tenderness, normal capillary refill. Absent: joint swelling, calf tenderness - Expanded Lower Extremity Exam Left Hip exam: Present: normal inspection, full ROM. Absent: tenderness, swelling Upper Leg exam: Present: normal inspection, full ROM. Absent: tenderness, swelling Knee exam: Present: normal inspection, full ROM. Absent: tenderness, swelling Lower Leg exam: Present: normal inspection, full ROM. Absent: tenderness, swelling, abrasion, laceration, ecchymosis, deformity, crepidus, dislocation, erythema, palpable cord, Jennifer's sign Ankle exam: Present: normal inspection, full ROM, tenderness. Absent: swelling, abrasion, laceration, ecchymosis, deformity, crepidus, dislocation, erythema, anterior draw sign Foot/Toe exam: Present: normal inspection, full ROM, tenderness. Absent: swelling, abrasion, laceration, ecchymosis, deformity, crepidus, dislocation, erythema, amputation, puncture wound, foreign body, calcaneal tenderness, tenderness at base of 5th metatarsal, nail avulsion, subungual hematoma Neuro vascular tendon exam: Present: no vascular compromise Gait: Positive: observed and limited by pain - Back Exam Back exam: Present: normal inspection, full ROM. Absent: tenderness, CVA tenderness (R), CVA tenderness (L), muscle spasm, paraspinal tenderness, vertebral tenderness, rash noted - Neurological Exam Neurological exam: Present: alert, oriented X3, normal gait - Psychiatric Psychiatric exam: Present: normal affect, normal mood - Skin Skin exam: Present: warm, dry, intact, normal color. Absent: rash ED Course Vital Signs 05/30/20 15:43 Temperature 97.9 F Pulse Rate 62 Respiratory 18 Rate Blood Pressure 104/45 O2 Sat by Pulse 100 Oximetry - Reevaluation(s) Reevaluation #1: 05/30/20 16:42 Patient is speaking in full sentences with no signs of distress noted. ED Lower Extremity MDM - Radiology Data Referring Physician: HIEU MORALES Patient Name: JOSE D DAWKINS Date of : 1975 Sex: Female Report Date: 2020-05-30 Report Status: Finalized [facility] [address] [place] [address] XRay Report Signed Patient: JOSE D DAWKINS MR#: [id number] : 1975 Acct:[id number] Age/Sex: 44 / F ADM Date: 05/30/20 Loc: ED Attend ing Dr: Ordering Physician: HIEU MORALES NP Date of Service: 05/30/20 Procedure(s): XR ankle 3+V LT Accession Number(s): [id number] cc: HIEU MORALES NP Fluoro Time In Minutes: LEFT ANKLE 3 VIEWS INDICATION / CLINICAL INFORMATION: Left ankle pain after fall. COMPARISON: None available. FINDINGS: BONES/JOINT(S): No acute fracture or subluxation. No significant degenerative changes. SOFT TISSUES: No significant abnormality. ADDITIONAL FINDINGS: None. Signer Name: Chang Campbell MD Signed: 05/30/2020 4:17 PM Workstation Name: [id number] Transcribed By: LACI Dictated By: Chang Campbell MD Electronically Authenticated By: Chang Campbell MD Signed Date/Time: 05/30/201616 DD/ 16 TD/TT: Referring Physician: HIEU MORALES Patient Name: JOSE D DAWKINS Date of : 1975 Sex: Female Report Date: 2020-05-30 Report Status: Finalized [address] [address] XRay Report Signed Patient: JOSE D DAWKINS MR#: [id number] : 1975 Acct:[id number] Age/Sex: 44 / F ADM Date: 05/30/20 Loc: ED At [facility]: Ordering Physician: HIEU MORALES NP Date of Service: 05/30/20 Procedure(s): XR foot 3+V LT Accession Number(s): [id number] cc: HIEU MORALES NP Fluoro Time In Minutes: LEFT FOOT 3 VIEWS INDICATION / CLINICAL INFORMATION: Left foot pain after fall. COMPARISON: None available. FINDINGS: BONES/JOINT(S): No acute fracture or subluxation. No significant degenerative changes. SOFT TISSUES: No significant abnormality. ADDITIONAL FINDINGS: None. Signer Name: Chang Campbell MD Signed: 05/30/2020 4:18 PM Workstation Name: [id number] Transcribed By: LACI Dictated By: Chang Campbell MD Electronically Authenticated By: Chang Campbell MD Signed Date/Time: 05/30/201617 DD/ 16 TD/TT: - Medical Decision Making Patient is stable and was examined by me. Patient is notified of the xray results with no questions noted by the patient. No joint effusion, no redness, no decreased ROM. Patient received Nico wrap. Patient does have Percocet for pains at home. Educatd on RICE thearpy. Patient was instructed to Follow-up with a orthopedic doctor in 3-5 days or if symptoms worsen and continue return to emergency room as soon as possible. At time of discharge, the patient does not seem toxic or ill in appearance. No acute signs of distress noted. Patient agrees to discharge treatment plan of care. No further questions noted by the patient. Critical care attestation.: If time is entered above; I have spent that time in minutes in the direct care of this critically ill patient, excluding procedure time. ED Disposition Clinical Impression: Left ankle sprain Qualifiers: Encounter type: initial encounter Involved ligament of ankle: unspecified ligament Qualified Code(s): S93.402A - Sprain of unspecified ligament of left ankle, initial encounter Strain of left foot Qualifiers: Encounter type: initial encounter Qualified Code(s): S96.912A - Strain of unspecified muscle and tendon at ankle and foot level, left foot, initial encounter Disposition: DC-01 TO HOME OR SELFCARE Is pt being admited?: No Does the pt Need Aspirin: No Condition: Stable Instructions: RICE Therapy (ED) Additional Instructions: Follow-up with a orthopedic doctor in 3-5 days or if symptoms worsen and continue return to emergency room as soon as possible. Referrals: [facility] [Referring] - 3-5 Days KAE REICH MD [Staff Physician] - 3-5 Days
== END 2020-05-30 17:01 | disposition home or self-care (01) ==
LOC: ED 15:23
DX: S93.402A Sprain of unspecified ligament of left ankle, initial encounter (principal); S93.602A Unspecified sprain of left foot, initial encounter; G43.909 Migraine, unspecified, not intractable, without status migrainosus; R56.9 Unspecified convulsions; Z87.442 Personal history of urinary calculi; Z86.73 Personal history of transient ischemic attack (TIA), and cerebral infarction without residual deficits; Z90.710 Acquired absence of both cervix and uterus; Z98.890 Other specified postprocedural states; Z79.899 Other long term (current) drug therapy; Z88.8 Allergy status to other drugs, medicaments and biological substances; W01.0XXA Fall on same level from slipping, tripping and stumbling without subsequent striking against object, initial encounter; Y93.89 Activity, other specified; Y92.89 Other specified places as the place of occurrence of the external cause; Y99.8 Other external cause status

== ENCOUNTER 2021-07-08 18:44 | Emergency (ER) | payer BC, MEDICARE ==
[2021-07-08 18:50] VITALS: BP 114/70
--- NOTE | 2021-07-08 21:28 | XRay Report ---
CHEST PA AND LATERAL VIEWS INDICATION: Chest Pain. COMPARISON: 08/29/2019 FINDINGS: Support devices: None. Heart: Within normal limits. Lungs/Pleura: No acute pulmonary or pleural findings. IMPRESSION: 1. No acute findings. Signer Name: Nick Ruano MD Signed: 07/08/2021 9:23 PM Workstation Name: [id number]
[2021-07-08 21:37] LABS: Basophils # (Auto) 0.1 K/mm3 (0.0-0.1); Eosinophils # (Auto) 0.1 K/mm3 (0.0-0.4); Eosinophils % (Auto) 2.8 % (0.0-4.3); Hematocrit 42.3 % (30.3-42.9); Hemoglobin 13.4 gm/dl (10.1-14.3); Lymphocytes # (Auto) 2.5 K/mm3 (1.2-5.4); Lymphocytes % (Auto) 49.9 % (13.4-35.0); Mean Corpuscular HGB Conc 32 % (30-34); Mean Corpuscular Volume 84 fl (79-97); Monocytes # (Auto) 0.4 K/mm3 (0.0-0.8); Monocytes % (Auto) 7.7 % (0.0-7.3); Platelet Count 368 K/mm3 (140-440); Red Blood Count 5.02 M/mm3 (3.65-5.03); Red Cell Distribution Width 15.4 % (13.2-15.2)
[2021-07-08] MEDS ORDERED: ONDANSETRON 4 MG/2 ML INJ IV STA (21:41)
[2021-07-08] MEDS ORDERED: SODIUM CHLORIDE 0.9% 1000 ML 1,000 ML IV ONE (21:41)
[2021-07-08] MEDS ORDERED: KETOROLAC 30 MG/1 ML INJ IV STA (21:41)
[2021-07-08 21:58] LABS: Alanine Aminotransferase 11 units/L (7-56); BUN/Creatinine Ratio 17; Blood Urea Nitrogen 15 mg/dL (7-17); Hemolysis Index 4
[2021-07-08] MEDS ORDERED: MORPHINE 4 MG/1 ML INJ IV ONE (23:30)
[2021-07-09] MEDS ORDERED: ONDANSETRON 4 MG/2 ML INJ ONE (00:22)
[2021-07-09] MEDS ORDERED: ONDANSETRON 4 MG/2 ML INJ IV ONE (00:25)
[2021-07-09] MEDS ORDERED: dexAMETHasone 4 MG/ML VIAL IM ONE (01:03)
[2021-07-09] MEDS ORDERED: MORPHINE 2 MG/1 ML INJ IV ONE (01:13)
--- NOTE | 2021-07-09 02:22 | Emergency Department Report ---
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 She reports no hemoptysis no hematemesis hematochezia she reports no fever, chills, sweats. Pain is with palpation range of motion and certain positions and appears to radiate to to the left shoulder from time to time. She takes deep breaths significantly worsens her pain or when she coughs it worsens her pain she reports no presyncope. No direct blunt trauma she reports no no new rashes. She reports no shortness of breath has not tried to take any palliative factors since being home. -: Gradual Radiation: non-radiation Severity scale (0 -10): 7 Quality: dull Consistency: constant Improves with: none Associated Symptoms: denies other symptoms Treatments Prior to Arrival: none - Related Data Previous Rx's Medication Instructions Recorded Last Taken Type Diazepam [Valium] 1 tab PO BID PRN #6 tablet 09/01/18 Unknown Rx Ondansetron [Zofran ODT TAB] 4 mg PO Q8HR PRN #20 tab.rapdis 09/16/18 Unknown Rx Butalb/Acetamin/Caff 50-325-40 1 tab PO Q6HR PRN #14 tab 02/07/19 Unknown Rx [Fioricet 50-325-40] Promethazine [Phenergan] 25 mg PO Q6HR PRN #24 tab 02/07/19 Unknown Rx diphenhydrAMINE [Benadryl CAP] 25 mg PO Q6HR PRN #20 capsule 05/25/19 Unknown Rx predniSONE [Deltasone] 20 mg PO QDAY #5 tab 05/25/19 Unknown Rx Hydromorphone HCl [Dilaudid] 4 mg PO Q12H PRN 10 Days #15 tablet 08/30/19 Unknown Rx Prochlorperazine [Compazine] 10 mg PO BID PRN #15 tablet 08/30/19 Unknown Rx diphenhydrAMINE [Benadryl CAP] 50 mg PO Q12H PRN #20 capsule 08/30/19 Unknown Rx Butalb/Acetamin/Caff 50-325-40 1 tab PO Q6HR PRN #24 tab 04/28/20 Unknown Rx [Fioricet] predniSONE [Deltasone] 20 mg PO QDAY #5 tab 07/09/21 Unknown Rx Allergies Allergy/AdvReac Type Severity Reaction Status Date / Time levetiracetam [From Keppra] Allergy Intermediate Vomiting Verified 08/29/19 13:40 divalproex sodium Allergy Unknown Verified 08/29/19 13:40 [From Depakote] doxycycline Allergy Vomiting Verified 08/29/19 13:40 lamotrigine [From Lamictal] Allergy Unknown Verified 05/30/20 15:42 metoclopramide HCl Allergy Unknown Verified 08/29/19 13:40 [From Reglan] Penicillins Allergy Unknown Verified 08/29/19 13:40 sumatriptan [From Imitrex] Allergy Unknown Verified 08/29/19 13:40 ED Review of Systems Comment: All other systems reviewed and negative ED Past Medical Hx - Past Medical History Hx CVA: Yes (2014 Slight left sided deficits.) Hx Heart Attack/AMI: No Hx Congestive Heart Failure: No Hx Diabetes: No Hx Headaches / Migraines: Yes ( migraine headaches) Hx Seizures: Yes Hx Kidney Stones: Yes Hx Asthma: No Hx COPD: No Additional medical history: 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 tonsils - Social History Smoking Status: Never Smoker Substance Use Type: None - Medications Home Medications: Home Medications Medication Instructions Recorded Confirmed Last Taken Type Diazepam [Valium] 1 tab PO BID PRN #6 tablet 09/01/18 08/30/19 Unknown Rx Ondansetron [Zofran ODT TAB] 4 mg PO Q8HR PRN #20 tab.rapdis 09/16/18 08/30/19 Unknown Rx Butalb/Acetamin/Caff 50-325-40 1 tab PO Q6HR PRN #14 tab 02/07/19 08/30/19 Unknown Rx [Fioricet 50-325-40] Promethazine [Phenergan] 25 mg PO Q6HR PRN #24 tab 02/07/19 08/30/19 Unknown Rx diphenhydrAMINE [Benadryl CAP] 25 mg PO Q6HR PRN #20 capsule 05/25/19 08/30/19 Unknown Rx predniSONE [Deltasone] 20 mg PO QDAY #5 tab 05/25/19 08/30/19 Unknown Rx Hydromorphone HCl [Dilaudid] 4 mg PO Q12H PRN 10 Days #15 tablet 08/30/19 Unknown Rx Prochlorperazine [Compazine] 10 mg PO BID PRN #15 tablet 08/30/19 Unknown Rx diphenhydrAMINE [Benadryl CAP] 50 mg PO Q12H PRN #20 capsule 08/30/19 Unknown Rx Butalb/Acetamin/Caff 50-325-40 1 tab PO Q6HR PRN #24 tab 04/28/20 Unknown Rx [Fioricet] predniSONE [Deltasone] 20 mg PO QDAY #5 tab 07/09/21 Unknown Rx ED Physical Exam - General Limitations: No Limitations General appearance: alert, in no apparent distress - Head Head exam: Present: atraumatic, normocephalic - Eye Eye exam: Present: normal appearance, PERRL, EOMI Pupils: Present: normal accommodation - ENT ENT exam: Present: normal exam, normal orophraynx, mucous membranes dry, mucous membranes moist, TM's normal bilaterally - Neck Neck exam: Present: normal inspection, full ROM - Respiratory Respiratory exam: Present: normal lung sounds bilaterally, chest wall tenderness. Absent: respiratory distress, wheezes, rales, accessory muscle use - Cardiovascular Cardiovascular Exam: Present: regular rate, normal rhythm. Absent: systolic murmur, diastolic murmur, rubs, gallop - GI/Abdominal GI/Abdominal exam: Present: soft, normal bowel sounds. Absent: tenderness, guarding - Extremities Exam Extremities exam: Present: normal inspection - Back Exam Back exam: Present: normal inspection - Neurological Exam Neurological exam: Present: alert, oriented X3 - Psychiatric Psychiatric exam: Present: normal affect, normal mood - Skin Skin exam: Present: warm, dry, intact, normal color. Absent: rash ED Medical Decision Making - Lab Data Result diagrams: 07/08/21 21:16 07/08/21 21:16 Lab Results 07/08/21 07/08/21 07/08/21 Range/Units 21:16 21:16 21:47 WBC 5.0 (4.5-11.0) K/mm3 RBC 5.02 (3.65-5.03) M/mm3 Hgb 13.4 (10.1-14.3) gm/dl Hct 42.3 (30.3-42.9) % MCV 84 (79-97) fl MCH 27 L (28-32) pg MCHC 32 (30-34) % RDW 15.4 H (13.2-15.2) % Plt Count 368 (140-440) K/mm3 Lymph % (Auto) 49.9 H (13.4-35.0) % [place] % (Auto) 7.7 H (0.0-7.3) % Eos % (Auto) 2.8 (0.0-4.3) % Baso % (Auto) 1.0 (0.0-1.8) % Lymph # (Auto) 2.5 (1.2-5.4) K/mm3 [place] # (Auto) 0.4 (0.0-0.8) K/mm3 Eos # (Auto) 0.1 (0.0-0.4) K/mm3 Baso # (Auto) 0.1 (0.0-0.1) K/mm3 Seg Neutrophils % 38.6 L (40.0-70.0) % Seg Neutrophils # 1.9 (1.8-7.7) K/mm3 D-Dimer 138.22 (0-234) ng/mlDDU Sodium 140 (137-145) mmol/L Potassium 4.1 (3.6-5.0) mmol/L Chloride 102.5 (98-107) mmol/L Carbon Dioxide 20 L (22-30) mmol/L Anion Gap 22 mmol/L BUN 15 (7-17) mg/dL Creatinine 0.9 (0.6-1.2) mg/dL Estimated GFR > 60 ml/min BUN/Creatinine Ratio 17 % Glucose 104 H (65-100) mg/dL Calcium 10.0 (8.4-10.2) mg/dL Total Bilirubin 0.30 (0.1-1.2) mg/dL AST 17 (5-40) units/L ALT 11 (7-56) units/L Alkaline Phosphatase 143 H (35-129) units/L Troponin T < 0.010 (0.00-0.029) ng/mL Total Protein 7.1 (6.3-8.2) g/dL Albumin 5.0 (3.9-5) g/dL Albumin/Globulin Ratio 2.4 % Lipase 24 (13-60) units/L 07/09/21 Range/Units 00:32 WBC (4.5-11.0) K/mm3 RBC (3.65-5.03) M/mm3 Hgb (10.1-14.3) gm/dl Hct (30.3-42.9) % MCV (79-97) fl MCH (28-32) pg MCHC (30-34) % RDW (13.2-15.2) % Plt Count (140-440) K/mm3 Lymph % (Auto) (13.4-35.0) % [place] % (Auto) (0.0-7.3) % Eos % (Auto) (0.0-4.3) % Baso % (Auto) (0.0-1.8) % Lymph # (Auto) (1.2-5.4) K/mm3 [place] # (Auto) (0.0-0.8) K/mm3 Eos # (Auto) (0.0-0.4) K/mm3 Baso # (Auto) (0.0-0.1) K/mm3 Seg Neutrophils % (40.0-70.0) % Seg Neutrophils # (1.8-7.7) K/mm3 D-Dimer (0-234) ng/mlDDU Sodium (137-145) mmol/L Potassium (3.6-5.0) mmol/L Chloride (98-107) mmol/L Carbon Dioxide (22-30) mmol/L Anion Gap mmol/L BUN (7-17) mg/dL Creatinine (0.6-1.2) mg/dL Estimated GFR ml/min BUN/Creatinine Ratio % Glucose (65-100) mg/dL Calcium (8.4-10.2) mg/dL Total Bilirubin (0.1-1.2) mg/dL AST (5-40) units/L ALT (7-56) units/L Alkaline Phosphatase (35-129) units/L Troponin T < 0.010 (0.00-0.029) ng/mL Total Protein (6.3-8.2) g/dL Albumin (3.9-5) g/dL Albumin/Globulin Ratio % Lipase (13-60) units/L - EKG Data Rate: normal - EKG Data Interpretation: no acute changes - Radiology Data Radiology results: report reviewed [facility] [address] [place] [address] XRay Report Signed Patient: JOSE D DAWKINS MR#: [id number] : 1975 Acct:[id number] Age/Sex: 45 / F ADM Date: 07/08/21 Loc: ED Attending Dr: Ordering Physician: DERRICK MEJIA Date of Service: 07/08/21 Procedure(s): XR chest routine 2V Accession Number(s): [id number] cc: DERRICK MEJIA Fluoro Time In Minutes: CHEST PA AND LATERAL VIEWS INDICATION: Chest Pain. COMPARISON: 08/29/2019 FINDINGS: Support devices: None. Heart: Within normal limits. Lungs/Pleura: No acute pulmonary or pleural findings. IMPRESSION: 1. No acute findings. Signer Name: Nick Ruano MD Signed: 07/08/2021 9:23 PM Workstation Name: [id number] Transcribed By: Dictated By: Nick Ruano MD Electronically Authenticated By: Nick Ruano MD Signed Date/Time: 07/08/212122 DD/ 22 TD/TT: - Medical Decision Making Four 5-year-old female [facility] emerge department complaining of chest pain of unknown etiology reports having had Covid in in January and thinks this may be a post Covid's symptom. While in emergency department patient did receive round left of Toradol which did not successfully mitigate her pain. This was followed by an IV injection of morphine which also did not quite successful mitigate her pain. She was in follow-up with steroids which seemed to help improve her symptoms she remained hemodynamically stable while in the emergency department and then was discharged home on a further course of steroids with plans for follow-up with cardiology and her primary care provider. This appeared to be more of a musculoskeletal origin no evidence of any infectious processes. No hemodynamic compromise This patient presents with chest pain that is very unlikely angina or acute coronary syndrome. The emergency department evaluation has not identified any cause for suspicion that this chest pain has a cardiac etiology. Based on their history, EKG (which showed no evidence of ischemia or infarction) and imaging, in addition to the patient's physical exam, I see no evidence at this time for a malignant etiology for the patient's chest pain. There is no acute evidence for pulmonary embolus, acute myocardial infarction, pneumothorax, Boerhaeve syndrome, cardiac tamponade, thoracic artery dissection, or any other emergent cardiac, pulmonary or aortic pathology. Given the low pre-test probability for cardiac etiology of chest pain and the absence of any sign of ischemia or infarction, discharge for outpatient follow-up and further evaluation is reasonable. I have explained to the patient that even though a cardiac problem is very unlikely, follow-up and further testing is required to reduce further the already small uncertainty that exists. Other life-threatening diagnoses have been considered. The patient understands the need to return immediately if their symptoms worsen or they develop any new symptoms, and not to engage in any significant exertional activity until follow-up is obtained. ED Disposition Disposition: 01 HOME / SELF CARE / HOMELESS Is pt being admited?: No Does the pt Need Aspirin: No Condition: Stable Instructions: Chest Wall Pain, [id number], Nonspecific Chest Pain, Adult, Costochondritis Additional Instructions: You were evaluated emergency department today for chest pain. Your evaluation has shown no medicals conditions requiring emergent intervention at this time, however recommend that you follow-up with your primary care physician or your car worker helper soon as possible for further testing as an outpatient. Please schedule an appointment for follow-up with your primary care physician as soon as possible. Return to emergency department if you expands worsening uncontrolled chest pain, shortness of breath, lightheadedness, feeling faint, nausea, vomiting or any other concerning symptoms. Prescriptions: predniSONE [Deltasone] 20 mg PO QDAY #5 tab Referrals: CODY FERMIN MD [Staff Physician] - 3-5 Days LUIS FERNANDO STEVENS MD [Primary Care Provider] - 3-5 Days JUSTIN PUCKETT MD [Staff Physician] - 3-5 Days <RJ CAMPOSJHONNY Frye - Last Filed: 07/09/21 04:47> ED Review of Systems ROS: Stated complaint: CP, BODY PAIN Other details as noted in HPI ED Course Vital Signs 07/08/21 07/09/21 18:48 03:05 Temperature 98.0 F Pulse Rate 109 H 64 Respiratory 20 15 Rate Blood Pressure 114/70 [Right] O2 Sat by Pulse 98 100 Oximetry - Reevaluation(s) Reevaluation #1: I reviewed the findings and management of this patient in real-time and I have personally seen and examined this patient and participated in the decision making for this patient with the midlevel. Patient is a 45-year-old female who presents emergency room with chest pain. Patient's chest pain is worse with deep breath and palpation. Patient had labs done. Patient's labs were essentially unremarkable. Patient's chest x-ray and EKG were unremarkable. I personally reviewed the EKG and chest x-ray. I examined the patient. Patient's lung sounds are clear to auscultation. Patient's chest pain is reproducible with palpation. Patient's chest pain is also reproducible with deep breath. Patient CV exam is unremarkable. Patient abdominal exam is unremarkable. Patient's clinical findings are consistent with costochondritis versus pleurisy. Patient will be given steroids and morphine. Patient will be discharged home with a steroid pack. Patient will be instructed to follow-up with her primary care and her meeting facilitator. I discussed all results and clinical findings with patient. I discussed plan of care with patient. Patient agrees with plan of care. Patient is stable for discharge. Patient will be discharged home. Patient given discharge instructions. Patient voiced understanding of discharge instructions. 07/08/21 23:15 ED Medical Decision Making - Lab Data Result diagrams: 07/08/21 21:16 07/08/21 21:16 Critical care attestation.: If time is entered above; I have spent that time in minutes in the direct care of this critically ill patient, excluding procedure time.
--- NOTE | 2021-07-12 14:09 | Electrocardiograph Report ---
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
== END 2021-07-09 03:00 | disposition home or self-care (01) ==
LOC: ED 18:44
DX: R07.9 Chest pain, unspecified (principal); Z88.8 Allergy status to other drugs, medicaments and biological substances; Z88.1 Allergy status to other antibiotic agents; Z88.0 Allergy status to penicillin
CPT/HCPCS: 36415; 71046; 80053; 83690; 84484; 85025; 85379; 93005; 96361; 96372; 96374; 96375; 96376; 99284; J1100; J1885; J2270; J2405; J7030; Q0162

== ENCOUNTER 2021-10-28 21:01 | Emergency (ER) | payer BC, MEDICARE ==
[2021-10-29] MEDS ORDERED: ASPIRIN 325 MG TAB PO ONE (00:21)
--- NOTE | 2021-10-29 00:49 | XRay Report ---
CHEST 1 VIEW 10/28/2021 11:43 PM INDICATION / CLINICAL INFORMATION: chest pain. COMPARISON: 07/08/2021 FINDINGS: SUPPORT DEVICES: None. HEART / MEDIASTINUM: No significant abnormality. LUNGS / PLEURA: No significant pulmonary or pleural abnormality. No pneumothorax. ADDITIONAL FINDINGS: No significant additional findings. IMPRESSION: 1. No acute findings. Signer Name: Chang Campbell MD Signed: 10/29/2021 12:44 AM Workstation Name: [id number]
[2021-10-29 01:13] LABS: Basophils # (Auto) 0.1 K/mm3 (0.0-0.1); Basophils % (Auto) 0.5 % (0.0-1.8); Eosinophils # (Auto) 0.3 K/mm3 (0.0-0.4); Eosinophils % (Auto) 3.1 % (0.0-4.3); Hematocrit 40.6 % (30.3-42.9); Hemoglobin 13.2 gm/dl (10.1-14.3); Lymphocytes # (Auto) 4.1 K/mm3 (1.2-5.4); Lymphocytes % (Auto) 37.4 % (13.4-35.0); Mean Corpuscular HGB Conc 32 % (30-34); Mean Corpuscular Volume 86 fl (79-97); Monocytes # (Auto) 0.7 K/mm3 (0.0-0.8); Monocytes % (Auto) 6.3 % (0.0-7.3); Platelet Count 425 K/mm3 (140-440); Red Blood Count 4.75 M/mm3 (3.65-5.03); Red Cell Distribution Width 14.9 % (13.2-15.2)
[2021-10-29] MEDS ORDERED: ONDANSETRON 4 MG ODT TAB PO ONE (01:14)
[2021-10-29 01:43] LABS: Alanine Aminotransferase 10 units/L (7-56); Albumin 4.2 g/dL (3.9-5); BUN/Creatinine Ratio 14; Blood Urea Nitrogen 14 mg/dL (7-17); Hemolysis Index 25
[2021-10-29] MEDS ORDERED: MORPHINE 4 MG/1 ML INJ IV ONE ×2 (01:48→03:34)
[2021-10-29] MEDS ORDERED: SODIUM CHLORIDE 0.9% 1000 ML 1,000 ML IV ONE (01:50)
--- NOTE | 2021-10-29 01:51 | Emergency Department Report ---
ED Chest Pain HPI - General Chief Complaint: Chest Pain Stated Complaint: CHEST PAIN Time Seen by Provider: 10/29/21 01:46 Source: patient Mode of arrival: Ambulatory Limitations: No Limitations - Related Data Previous Rx's Medication Instructions Recorded Last Taken Type Diazepam [Valium] 1 tab PO BID PRN #6 tablet 09/01/18 Unknown Rx Ondansetron [Zofran ODT TAB] 4 mg PO Q8HR PRN #20 tab.rapdis 09/16/18 Unknown Rx Butalb/Acetamin/Caff 50-325-40 1 tab PO Q6HR PRN #14 tab 02/07/19 Unknown Rx [Fioricet 50-325-40] Promethazine [Phenergan] 25 mg PO Q6HR PRN #24 tab 02/07/19 Unknown Rx diphenhydrAMINE [Benadryl CAP] 25 mg PO Q6HR PRN #20 capsule 05/25/19 Unknown Rx predniSONE [Deltasone] 20 mg PO QDAY #5 tab 05/25/19 Unknown Rx Hydromorphone HCl [Dilaudid] 4 mg PO Q12H PRN 10 Days #15 tablet 08/30/19 Unknown Rx Prochlorperazine [Compazine] 10 mg PO BID PRN #15 tablet 08/30/19 Unknown Rx diphenhydrAMINE [Benadryl CAP] 50 mg PO Q12H PRN #20 capsule 08/30/19 Unknown Rx Butalb/Acetamin/Caff 50-325-40 1 tab PO Q6HR PRN #24 tab 04/28/20 Unknown Rx [Fioricet] predniSONE [Deltasone] 20 mg PO QDAY #5 tab 07/09/21 Unknown Rx Acetaminophen/Codeine [Tylenol 1 tab PO Q6H PRN #10 tab 10/29/21 Unknown Rx /Codeine # 3 tab] Pantoprazole Sodium [Protonix] 40 mg PO BID #20 tab 10/29/21 Unknown Rx Allergies Allergy/AdvReac Type Severity Reaction Status Date / Time levetiracetam [From Keppra] Allergy Intermediate Vomiting Verified 08/29/19 13:40 divalproex sodium Allergy Unknown Verified 08/29/19 13:40 [From Depakote] doxycycline Allergy Vomiting Verified 08/29/19 13:40 lamotrigine [From Lamictal] Allergy Unknown Verified 05/30/20 15:42 metoclopramide HCl Allergy Unknown Verified 08/29/19 13:40 [From Reglan] Penicillins Allergy Unknown Verified 08/29/19 13:40 sumatriptan [From Imitrex] Allergy Unknown Verified 08/29/19 13:40 ED Review of Systems ROS: Stated complaint: CHEST PAIN Other details as noted in HPI ED Past Medical Hx - Past Medical History 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 tonsils - Social History Smoking Status: Never Smoker Substance Use Type: None - Medications Home Medications: Home Medications Medication Instructions Recorded Confirmed Last Taken Type Diazepam [Valium] 1 tab PO BID PRN #6 tablet 09/01/18 08/30/19 Unknown Rx Ondansetron [Zofran ODT TAB] 4 mg PO Q8HR PRN #20 tab.rapdis 09/16/18 08/30/19 Unknown Rx Butalb/Acetamin/Caff 50-325-40 1 tab PO Q6HR PRN #14 tab 02/07/19 08/30/19 Unknown Rx [Fioricet 50-325-40] Promethazine [Phenergan] 25 mg PO Q6HR PRN #24 tab 02/07/19 08/30/19 Unknown Rx diphenhydrAMINE [Benadryl CAP] 25 mg PO Q6HR PRN #20 capsule 05/25/19 08/30/19 Unknown Rx predniSONE [Deltasone] 20 mg PO QDAY #5 tab 05/25/19 08/30/19 Unknown Rx Hydromorphone HCl [Dilaudid] 4 mg PO Q12H PRN 10 Days #15 tablet 08/30/19 Unknown Rx Prochlorperazine [Compazine] 10 mg PO BID PRN #15 tablet 08/30/19 Unknown Rx diphenhydrAMINE [Benadryl CAP] 50 mg PO Q12H PRN #20 capsule 08/30/19 Unknown Rx Butalb/Acetamin/Caff 50-325-40 1 tab PO Q6HR PRN #24 tab 04/28/20 Unknown Rx [Fioricet] predniSONE [Deltasone] 20 mg PO QDAY #5 tab 07/09/21 Unknown Rx Acetaminophen/Codeine [Tylenol 1 tab PO Q6H PRN #10 tab 10/29/21 Unknown Rx /Codeine # 3 tab] Pantoprazole Sodium [Protonix] 40 mg PO BID #20 tab 10/29/21 Unknown Rx ED Physical Exam - General Limitations: No Limitations ED Course Vital Signs 10/28/21 10/29/21 21:06 02:23 Temperature 98.9 F Pulse Rate 111 H Respiratory 18 20 Rate Blood Pressure 118/87 O2 Sat by Pulse 96 Oximetry ED Medical Decision Making - Lab Data Result diagrams: 10/29/21 00:43 10/29/21 00:43 Critical care attestation.: If time is entered above; I have spent that time in minutes in the direct care of this critically ill patient, excluding procedure time. ED Disposition Clinical Impression: Peptic ulcer Disposition: 01 HOME / SELF CARE / HOMELESS Is pt being admited?: No Does the pt Need Aspirin: No Condition: Stable Instructions: Peptic Ulcer, [id number] Prescriptions: Pantoprazole Sodium [Protonix] 40 mg PO BID #20 tab Acetaminophen/Codeine [Tylenol /Codeine # 3 tab] 1 tab PO Q6H PRN #10 tab PRN Reason: Pain , Severe (7-10)
--- NOTE | 2021-10-29 05:43 | Cat Scan Report ---
CT ABDOMEN AND PELVIS WITHOUT CONTRAST HISTORY: Severe epigastric pain COMPARISON: None TECHNIQUE: Routine abdominal and pelvic CT exam performed without contrast. Lack of intravenous cont rast limits evaluation of the vascular and solid organs.. All CT scans at this location are performed using CT dose reduction for ALARA by means of automated exposure control. FINDINGS: CT ABDOMEN: Lung Bases: No significant abnormality. Liver: No significant abnormality. Biliary: No significant abnormality. Spleen: No significant abnormality. Unenlarged. Pancreas: No significant abnormality. Adrenals: No significant abnormality. Kidneys: No significant abnormality. Lymphatics: No lymphadenopathy. Vasculature: No significant abnormality. Bowel/Peritoneum: No significant abnormality. No free air. No free fluid. Normal appendix. CT PELVIC: : No significant abnormality. Lymphatics: No lymphadenopathy. Osseous Structures: No aggressive appearing osseous lesions. Additional Findings: None IMPRESSION: 1. No acute findings or findings to explain the patient's symptoms. Signer Name: Chang Campbell MD Signed: 10/29/2021 5:39 AM Workstation Name: [id number]
[2021-10-29] MEDS ORDERED: ONDANSETRON 4 MG/2 ML INJ IV ONE (07:05)
[2021-10-29] MEDS ORDERED: MORPHINE 2 MG/1 ML INJ IV ONE (07:05)
[2021-10-29] MEDS ORDERED: PANTOPRAZOLE 40 MG INJ IV ONE (07:05)
[2021-10-29 07:53] VITALS: BP 136/88
--- NOTE | 2021-10-30 08:57 | Electrocardiograph Report ---
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
== END 2021-10-29 07:53 | disposition home or self-care (01) ==
LOC: ED 21:01
DX: K27.9 Peptic ulcer, site unspecified, unspecified as acute or chronic, without hemorrhage or perforation (principal); G43.909 Migraine, unspecified, not intractable, without status migrainosus; Z87.442 Personal history of urinary calculi; Z88.0 Allergy status to penicillin; Z88.8 Allergy status to other drugs, medicaments and biological substances; Z88.1 Allergy status to other antibiotic agents; Z79.899 Other long term (current) drug therapy
CPT/HCPCS: 36415; 71046; 74176; 80053; 83690; 83880; 84484; 85025; 93005; 96361; 96374; 96375; 96376; 99284; C9113; J2270; J2405; J7030; J3490; Q0162

== ENCOUNTER 2022-04-16 12:11 | Emergency (ER) | payer BC, MEDICARE ==
[2022-04-16 12:51] VITALS: BP 120/78
--- NOTE | 2022-04-16 13:46 | XRay Report ---
LEFT SHOULDER 2 VIEW(S) INDICATION / CLINICAL INFORMATION: left shoulder pain s/p fall. COMPARISON: None available. FINDINGS: BONES / JOINT(S): No acute fracture or subluxation. No significant arthritis. SOFT TISSUES: No significant abnormality. ADDITIONAL FINDINGS: None. IMPRESSION: 1. No acute findings. Signer Name: Seth Coley MD Signed: 04/16/2022 1:41 PM Workstation Name: [id number]
--- NOTE | 2022-04-16 13:56 | Emergency Department Report ---
ED Upper Extremity Inj HPI - General Chief Complaint: Extremity Injury, Upper Stated Complaint: FELL ON SHOULDER Time Seen by Provider: 04/16/22 12:47 Source: patient Mode of arrival: Ambulatory Limitations: No Limitations - History of Present Illness Initial Comments: This is a 46-year-old female nontoxic, well nourished in appearance, no acute signs of distress presents to the ED with c/o of left shoulder pain. Patient stated that had a mechanical trip and fall to left shoulder. HX of shoulder surgery and stated has taken hydrocodone prior to arrival. Patient denies any other injuries or trauma. Patient denies any numbness, tingling, fever, chills, nausea, vomiting, chest pain, shortness of breath, headache, stiff neck. Patient denies any joint swelling or joint redness. Patient stated has decreased range of motion due to pain. MD Complaint: Injury to:: left, shoulder -: days(s) Other Extremity Injury: Shoulder: Left Severity scale (0 -10): 8 Improves With: immobilization Worsens With: movement of extremity Context: fall Associated Symptoms: denies other symptoms. denies: weakness, numbness, neck pain, suspects foreign body, nausea/vomiting, heard/felt popping sensat - Related Data Previous Rx's Medication Instructions Recorded Last Taken Type Diazepam [Valium] 1 tab PO BID PRN #6 tablet 09/01/18 Unknown Rx Ondansetron [Zofran ODT TAB] 4 mg PO Q8HR PRN #20 tab.rapdis 09/16/18 Unknown Rx Butalb/Acetamin/Caff 50-325-40 1 tab PO Q6HR PRN #14 tab 02/07/19 Unknown Rx [Fioricet 50-325-40] Promethazine [Phenergan] 25 mg PO Q6HR PRN #24 tab 02/07/19 Unknown Rx diphenhydrAMINE [Benadryl CAP] 25 mg PO Q6HR PRN #20 capsule 05/25/19 Unknown Rx predniSONE [Deltasone] 20 mg PO QDAY #5 tab 05/25/19 Unknown Rx Hydromorphone HCl [Dilaudid] 4 mg PO Q12H PRN 10 Days #15 tablet 08/30/19 Unknown Rx Prochlorperazine [Compazine] 10 mg PO BID PRN #15 tablet 08/30/19 Unknown Rx diphenhydrAMINE [Benadryl CAP] 50 mg PO Q12H PRN #20 capsule 08/30/19 Unknown Rx Butalb/Acetamin/Caff 50-325-40 1 tab PO Q6HR PRN #24 tab 04/28/20 Unknown Rx [Fioricet] predniSONE [Deltasone] 20 mg PO QDAY #5 tab 07/09/21 Unknown Rx Acetaminophen/Codeine [Tylenol 1 tab PO Q6H PRN #10 tab 10/29/21 Unknown Rx /Codeine # 3 tab] Ondansetron [Zofran ODT TAB] 8 mg PO Q8HR #10 tab.rapdis 10/29/21 Unknown Rx Pantoprazole Sodium [Protonix] 40 mg PO BID #20 tab 10/29/21 Unknown Rx Allergies Allergy/AdvReac Type Severity Reaction Status Date / Time levetiracetam [From Keppra] Allergy Intermediate Vomiting Verified 08/29/19 13:40 divalproex sodium Allergy Unknown Verified 08/29/19 13:40 [From Depakote] doxycycline Allergy Vomiting Verified 08/29/19 13:40 lamotrigine [From Lamictal] Allergy Unknown Verified 05/30/20 15:42 metoclopramide HCl Allergy Unknown Verified 08/29/19 13:40 [From Reglan] Penicillins Allergy Unknown Verified 08/29/19 13:40 sumatriptan [From Imitrex] Allergy Unknown Verified 08/29/19 13:40 ED Review of Systems ROS: Stated complaint: FELL ON SHOULDER Other details as noted in HPI Comment: All other systems reviewed and negative Constitutional: denies: chills, fever Eyes: denies: eye pain, eye discharge, vision change ENT: denies: ear pain, throat pain Respiratory: denies: cough, shortness of breath, wheezing Cardiovascular: denies: chest pain, palpitations Endocrine: no symptoms reported Gastrointestinal: denies: abdominal pain, nausea, diarrhea Genitourinary: denies: urgency, dysuria, discharge Musculoskeletal: denies: back pain, joint swelling, arthralgia Skin: denies: rash, lesions Neurological: denies: headache, weakness, paresthesias Psychiatric: denies: anxiety, depression Hematological/Lymphatic: denies: easy bleeding, easy bruising ED Past Medical Hx - Past Medical History 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 tonsils - Social History Smoking Status: Never Smoker Substance Use Type: None - Medications Home Medications: Home Medications Medication Instructions Recorded Confirmed Last Taken Type Diazepam [Valium] 1 tab PO BID PRN #6 tablet 09/01/18 08/30/19 Unknown Rx Ondansetron [Zofran ODT TAB] 4 mg PO Q8HR PRN #20 tab.rapdis 09/16/18 08/30/19 Unknown Rx Butalb/Acetamin/Caff 50-325-40 1 tab PO Q6HR PRN #14 tab 02/07/19 08/30/19 Unknown Rx [Fioricet 50-325-40] Promethazine [Phenergan] 25 mg PO Q6HR PRN #24 tab 02/07/19 08/30/19 Unknown Rx diphenhydrAMINE [Benadryl CAP] 25 mg PO Q6HR PRN #20 capsule 05/25/19 08/30/19 Unknown Rx predniSONE [Deltasone] 20 mg PO QDAY #5 tab 05/25/19 08/30/19 Unknown Rx Hydromorphone HCl [Dilaudid] 4 mg PO Q12H PRN 10 Days #15 tablet 08/30/19 Unknown Rx Prochlorperazine [Compazine] 10 mg PO BID PRN #15 tablet 08/30/19 Unknown Rx diphenhydrAMINE [Benadryl CAP] 50 mg PO Q12H PRN #20 capsule 08/30/19 Unknown Rx Butalb/Acetamin/Caff 50-325-40 1 tab PO Q6HR PRN #24 tab 04/28/20 Unknown Rx [Fioricet] predniSONE [Deltasone] 20 mg PO QDAY #5 tab 07/09/21 Unknown Rx Acetaminophen/Codeine [Tylenol 1 tab PO Q6H PRN #10 tab 04/02/22 Unknown Rx /Codeine # 3 tab] Ondansetron [Zofran ODT TAB] 8 mg PO Q8HR #10 tab.rapdis 10/29/21 Unknown Rx Pantoprazole Sodium [Protonix] 40 mg PO BID #20 tab 10/29/21 Unknown Rx ED Physical Exam - General Limitations: No Limitations General appearance: alert, in no apparent distress - Head Head exam: Present: atraumatic, normocephalic - Eye Eye exam: Present: normal appearance - Neck Neck exam: Present: normal inspection, full ROM. Absent: lymphadenopathy - Respiratory Respiratory exam: Absent: respiratory distress - Cardiovascular Cardiovascular Exam: Present: regular rate - Extremities Exam Extremities exam: Present: tenderness, normal capillary refill. Absent: joint swelling - Expanded Upper Extremity Exam Left General: Present: normal inspection Shoulder Exam: Present: tenderness. Absent: swelling, abrasion, laceration, ecchymosis, deformity, crepidus, dislocation, erythema, tenderness over AC joint Upper Arm exam: Present: normal inspection, full ROM. Absent: tenderness, swelling Elbow exam: Present: normal inspection, full ROM. Absent: tenderness, swelling Forearm Wrist exam: Present: normal inspection, full ROM. Absent: tenderness, swelling Hand Wrist exam: Present: normal inspection, full ROM. Absent: tenderness, swelling Vascular: Present: normal capillary refill. Absent: vascular compromise (Neurovascular within normal limits) - Back Exam Back exam: Present: normal inspection, full ROM. Absent: tenderness, CVA tenderness (R), CVA tenderness (L), muscle spasm, paraspinal tenderness, vertebral tenderness, rash noted - Neurological Exam Neurological exam: Present: alert, oriented X3, normal gait - Psychiatric Psychiatric exam: Present: normal affect, normal mood - Skin Skin exam: Present: warm, dry, intact, normal color. Absent: rash ED Course Vital Signs 04/16/22 12:50 Temperature 98 F Pulse Rate 78 Respiratory 16 Rate Blood Pressure 120/78 [Left] O2 Sat by Pulse 98 Oximetry - Reevaluation(s) Reevaluation #1: 04/16/22 13:52 Patient is speaking in full sentences with no signs of distress noted. ED Medical Decision Making - Radiology Data [facility] [address] [place] [address] XRay Report Signed Patient: JOSE D DAWKINS MR#: [id number] : 1975 Acct:[id number] Age/Sex: 46 / F ADM Date: 04/16/22 Loc: ED Attending Dr: Ordering Physician: HIEU MORALES NP Date of Service: 04/16/22 Procedure(s): XR shoulder 2+V LT Accession Number(s): [id number] cc: HIEU MORALES NP Fluoro Time In Minutes: LEFT SHOULDER 2 VIEW(S) INDICATION / CLINICAL INFORMATION: left shoulder pain s/p fall. COMPARISON: None available. FINDINGS: BONES / JOINT(S): No acute fracture or subluxation. No significant arthritis. SOFT TISSUES: No significant abnormality. ADDITIONAL FINDINGS: None. IMPRESSION: 1. No acute findings. Signer Name: Kae Coley MD Signed: 04/16/2022 1:41 PM Workstation Name: [id number] Transcribed By: KENTRELL Dictated By: KAE COLEY MD Electronically Authenticated By: KAE COLEY MD Signed Date/Time: 04/16/22 134 DD/ 40 TD/TT: - Medical Decision Making This is a 46-year-old female that presents with left shoulder injury. Patient is stable and was examined by me. I referred patient to an orthopedic doctor for further evaluation for possible MRI. X-ray has been obtained and dictated by the radiologist. Patient is notified of the x-ray report with noted by the patient. Patient does have a shoulder sling present as she is wearing it. Sharlene ent stated has pain medication at home. PAtient received Toradol IM in the ED. At time of discharge, the patient does not seem toxic or ill in appearance. No acute signs of distress noted. Patient agrees to discharge treatment plan of care. No further questions noted by the patient. Critical care attestation.: If time is entered above; I have spent that time in minutes in the direct care of this critically ill patient, excluding procedure time. ED Disposition Clinical Impression: Injury of left shoulder Qualifiers: Encounter type: initial encounter Qualified Code(s): S49.92XA - Unspecified injury of left shoulder and upper arm, initial encounter Disposition: HOME / SELF CARE / HOMELESS Is pt being admited?: No Does the pt Need Aspirin: No Condition: Stable Additional Instructions: Follow-up with a orthopedic doctor in 3-5 days or if symptoms worsen and continue return to emergency room as soon as possible. No physical activity that extremity until cleared by orthopedic doctor Referrals: PRIMARY CAREMD [Primary Care Provider] - 3-5 Days Time of Disposition: 14:03
[2022-04-16] MEDS ORDERED: KETOROLAC 30 MG/1 ML INJ IM ONE (15:35)
== END 2022-04-16 15:46 | disposition home or self-care (01) ==
LOC: ED 12:11
DX: S49.92XA Unspecified injury of left shoulder and upper arm, initial encounter (principal); G43.909 Migraine, unspecified, not intractable, without status migrainosus; Z87.442 Personal history of urinary calculi; Z88.1 Allergy status to other antibiotic agents; Z88.8 Allergy status to other drugs, medicaments and biological substances; Z88.0 Allergy status to penicillin; Z79.899 Other long term (current) drug therapy; W18.39XA Other fall on same level, initial encounter; Y93.89 Activity, other specified; Y92.89 Other specified places as the place of occurrence of the external cause; Y99.8 Other external cause status
CPT/HCPCS: 73030; 96372; 99283; J1885